=== PATIENT | female | born 2000 | race Caucasian/White ===

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

== ENCOUNTER 2021-04-10 01:17 | Emergency (ER) | payer OTHER ==
[2021-04-10 01:23] VITALS: TEMP 98.9
[2021-04-10] MEDS ORDERED: ONDANSETRON 4 MG/2 ML VIAL IVP STA (01:54)
[2021-04-10] MEDS ORDERED: KETOROLAC 15 MG/ML 1 ML VIAL IVP STA (01:54)
[2021-04-10 02:16] LABS: Basophils # (A) 0.1 k/uL (0-0.2); Basophils % (A) 1 %; Eosinophils # (A) 0.2 k/uL (0-0.7); Eosinophils % (A) 2 %; HCT 40.6 % (34.0-46.0); HGB 13.7 gm/dL (11.4-16.0); Lymphocytes # (A) 2.6 k/uL (1.0-4.8); Lymphocytes % (A) 27 %; MCH 27.7 pg (25.0-35.0); MCHC 33.8 g/dL (31.0-37.0); Mean Platelet Volume 7.5; Monocytes # (A) 0.3 k/uL (0-1.0); Monocytes % (A) 4 %; Neutrophils # (A) 6.3 k/uL (1.3-7.7); Neutrophils % (A) 66 %; Platelet Count 326 k/uL (150-450); RBC 4.95 m/uL (3.80-5.40); RDW 13.9 % (11.5-15.5); WBC 9.5 k/uL (4.0-11.0)
[2021-04-10 02:23] LABS: Appearance,Urine Cloudy (Clear); Bilirubin,Urine Negative (Negative); Blood,Urine Large (Negative); Calcium Oxalate Crystals,Urine Many /hpf; Color,Urine Yellow; Glucose,Urine (UA) Negative (Negative); Ketones,Urine Negative (Negative); Leukocyte Esterase,Urine Negative (Negative); Mucus,Urine Occasional /hpf; Nitrite,Urine Negative (Negative); PH, Urine 6.5 (5.0-8.0); Protein,Urine Trace (Negative); RBC,Urine 45 /hpf (0-5); Specific Gravity,Urine 1.026 (1.001-1.035); Squamous Epithelial Cell,Urine 1 /hpf (0-4); WBC,Urine 3 /hpf (0-5)
[2021-04-10 02:25] LABS: ALT 15 U/L (4-34); AST 22 U/L (14-36); African American GFR (CKD) >90 (>60 ml/min/1.73 sqM); Albumin 4.5 g/dL (3.5-5.0); Alkaline Phosphatase 101 U/L (38-126); Anion Gap 10 mmol/L; Blood Urea Nitrogen 8 mg/dL (7-17); Calcium 8.9 mg/dL (8.4-10.2); Carbon Dioxide 22 mmol/L (22-30); Chloride 110 mmol/L (98-107); Glucose 120 mg/dL (74-99); Lipase 72 U/L (23-300); Non-African American GFR(CKD) >90 (>60 ml/min/1.73 sqM); Potassium 3.5 mmol/L (3.5-5.1); Sodium 142 mmol/L (137-145); Total Bilirubin 0.1 mg/dL (0.2-1.3); Total Protein 7.7 g/dL (6.3-8.2)
[2021-04-10 02:26] LABS: INR 0.9 (<1.2); Partial Thromboplastin Time 23.7 sec (22.0-30.0); Prothrombin Time 9.8 sec (9.0-12.0)
--- NOTE | 2021-04-10 02:53 | ED ---
Abdominal Pain HPI - General Chief Complaint: Abdominal Pain Stated Complaint: Vaginal Bleeding Time Seen by Provider: 04/10/21 01:24 Source: patient Mode of arrival: ambulatory Limitations: no limitations - History of Present Illness Initial Comments: 20 year-old female patient presents to the emergency department for evaluation of left pelvic pain. Patient states she also had an episode of vomiting states there was a small amount of blood in the vomit. States that she also started her period today and the bleeding is heavier than usual. States she does have history of ovarian cyst. States she has also been having frequent vomiting for the last few months. Denies any fever or chills. Denies abnormal vaginal discharge. States she does take oral control for almost a year. Patient denies any recent rash, cough, shortness of breath, chest pain, diarrhea, constipation, back pain, numbness, tingling, dizziness, weakness, headache, visual changes, or any other complaints. - Related Data Home Medications Medication Instructions Recorded Confirmed Ibuprofen [Motrin] 800 mg PO Q6H PRN 07/04/17 07/04/17 Previous Rx's Medication Instructions Recorded Dicyclomine [Bentyl] 10 mg PO TID #20 capsule 07/04/17 Ondansetron Odt [Zofran ODT] 4 mg PO Q8HR PRN #20 tab 07/04/17 Cyclobenzaprine [Flexeril] 10 mg PO TID #12 tab 10/19/19 Ibuprofen [Motrin] 600 mg PO Q8HR PRN #20 tab 10/19/19 Ondansetron [Zofran ODT] 4 mg PO Q8HR PRN #10 tab 04/10/21 Allergies Allergy/AdvReac Type Severity Reaction Status Date / Time No Known Allergies Allergy Verified 04/10/21 01:23 Review of Systems ROS Statement: Those systems with pertinent positive or pertinent negative responses have been documented in the HPI. ROS Other: All systems not noted in ROS Statement are negative. Past Medical History Past Medical History: No Reported History Additional Past Medical History / Comment(s): ovarian cyst History of Any Multi-Drug Resistant Organisms: None Reported Past Surgical History: No Surgical Hx Reported Past Psychological History: No Psychological Hx Reported Smoking Status: Vaper Past Alcohol Use History: None Reported Past Drug Use History: None Reported General Exam Limitations: no limitations General appearance: alert, in no apparent distress, other (Physical well- developed, well-nourished adult female patient in no acute distress. Vital signs upon presentation temperature 98.9F, pulse 81, respirations 20, blood pressure 130/71, pulse ox 99% on room air.) Respiratory exam: Present: normal lung sounds bilaterally. Absent: respiratory distress, wheezes, rales, rhonchi, stridor Cardiovascular Exam: Present: regular rate, normal rhythm, normal heart sounds. Absent: systolic murmur, diastolic murmur, rubs, gallop, clicks GI/Abdominal exam: Present: soft, tenderness (Left lower quadrant tenderness), normal bowel sounds. Absent: distended, guarding, rebound, rigid Back exam: Present: normal inspection. Absent: CVA tenderness (R), CVA tenderness (L) Neurological exam: Present: alert, oriented X3, CN II-XII intact Psychiatric exam: Present: normal affect, normal mood Skin exam: Present: warm, dry, intact, normal color. Absent: rash Course Vital Signs 04/10/21 01:19 Temperature 98.9 F Pulse Rate 81 Respiratory 20 Rate Blood Pressure 130/71 O2 Sat by Pulse 99 Oximetry Medical Decision Making - Medical Decision Making 20 year-old female patient presented to the emergency department today for evaluation of left pelvic pain and heavy vaginal bleeding. Physical examination did reveal left lower quadrant tenderness. She had normal vital signs. Labs reviewed and are unremarkable. Urinalysis showed red blood cells that she is on her period. Transvaginal ultrasound showed no abnormalities. I did discuss findings and results with her. She'll be discharged follow up with the primary care physician for recheck in 1-2 days. Return parameters were discussed in det ail. She verbalizes understanding and agrees with this plan. My attending is Dr. Aguilar. - Lab Data Result diagrams: 04/10/21 02:02 04/10/21 02:02 Lab Results 04/10/21 04/10/21 04/10/21 Range/Units 02:02 02:02 02:02 WBC 9.5 (4.0-11.0) k/uL RBC 4.95 (3.80-5.40) m/uL Hgb 13.7 (11.4-16.0) gm/dL Hct 40.6 (34.0-46.0) % MCV 82.0 (80.0-100.0) fL MCH 27.7 (25.0-35.0) pg MCHC 33.8 (31.0-37.0) g/dL RDW 13.9 (11.5-15.5) % Plt Count 326 (150-450) k/uL MPV 7.5 Neutrophils % 66 % Lymphocytes % 27 % Monocytes % 4 % Eosinophils % 2 % Basophils % 1 % Neutrophils # 6.3 (1.3-7.7) k/uL Lymphocytes # 2.6 (1.0-4.8) k/uL Monocytes # 0.3 (0-1.0) k/uL Eosinophils # 0.2 (0-0.7) k/uL Basophils # 0.1 (0-0.2) k/uL PT 9.8 (9.0-12.0) sec INR 0.9 (<1.2) APTT 23.7 (22.0-30.0) sec Sodium (137-145) mmol/L Potassium (3.5-5.1) mmol/L Chloride (98-107) mmol/L Carbon Dioxide (22-30) mmol/L Anion Gap mmol/L BUN (7-17) mg/dL Creatinine (0.52-1.04) mg/dL Est GFR (CKD-EPI)AfAm (>60 ml/min/1.73 sqM) Est GFR (CKD-EPI)NonAf (>60 ml/min/1.73 sqM) Glucose (74-99) mg/dL Calcium (8.4-10.2) mg/dL Total Bilirubin (0.2-1.3) mg/dL AST (14-36) U/L ALT (4-34) U/L Alkaline Phosphatase (38-126) U/L Total Protein (6.3-8.2) g/dL Albumin (3.5-5.0) g/dL Lipase (23-300) U/L Urine Color Yellow Urine Appearance Cloudy H (Clear) Urine pH 6.5 (5.0-8.0) Ur Specific [place] 1.026 (1.001-1.035) Urine Protein Trace H (Negative) Urine Glucose (UA) Negative (Negative) Urine Ketones Negative (Negative) Urine Blood Large H (Negative) Urine Nitrite Negative (Negative) Urine Bilirubin Negative (Negative) Urine Urobilinogen 2.0 (<2.0) mg/dL Ur Leukocyte Esterase Negative (Negative) Urine RBC 45 H (0-5) /hpf Urine WBC 3 (0-5) /hpf Ur Squamous Epith Cells 1 (0-4) /hpf Calcium Oxalate Crystal Many H (None) /hpf Urine Mucus Occasional H (None) /hpf Urine HCG, Qual (Not Detectd) 04/10/21 04/10/21 Range/Units 02:02 02:02 WBC (4.0-11.0) k/uL RBC (3.80-5.40) m/uL Hgb (11.4-16.0) gm/dL Hct (34.0-46.0) % MCV (80.0-100.0) fL MCH (25.0-35.0) pg MCHC (31.0-37.0) g/dL RDW (11.5-15.5) % Plt Count (150-450) k/uL MPV Neutrophils % % Lymphocytes % % Monocytes % % Eosinophils % % Basophils % % Neutrophils # (1.3-7.7) k/uL Lymphocytes # (1.0-4.8) k/uL Monocytes # (0-1.0) k/uL Eosinophils # (0-0.7) k/uL Basophils # (0-0.2) k/uL PT (9.0-12.0) sec INR (<1.2) APTT (22.0-30.0) sec Sodium 142 (137-145) mmol/L Potassium 3.5 (3.5-5.1) mmol/L Chloride 110 H (98-107) mmol/L Carbon Dioxide 22 (22-30) mmol/L Anion Gap 10 mmol/L BUN 8 (7-17) mg/dL Creatinine 0.49 L (0.52-1.04) mg/dL Est GFR (CKD-EPI)AfAm >90 (>60 ml/min/1.73 sqM) Est GFR (CKD-EPI)NonAf >90 (>60 ml/min/1.73 sqM) Glucose 120 H (74-99) mg/dL Calcium 8.9 (8.4-10.2) mg/dL Total Bilirubin 0.1 L (0.2-1.3) mg/dL AST 22 (14-36) U/L ALT 15 (4-34) U/L Alkaline Phosphatase 101 (38-126) U/L Total Protein 7.7 (6.3-8.2) g/dL Albumin 4.5 (3.5-5.0) g/dL Lipase 72 (23-300) U/L Urine Color Urine Appearance (Clear) Urine pH (5.0-8.0) Ur Specific [place] (1.001-1.035) Urine Protein (Negative) Urine Glucose (UA) (Negative) Urine Ketones (Negative) Urine Blood (Negative) Urine Nitrite (Negative) Urine Bilirubin (Negative) Urine Urobilinogen (<2.0) mg/dL Ur Leukocyte Esterase (Negative) Urine RBC (0-5) /hpf Urine WBC (0-5) /hpf Ur Squamous Epith Cells (0-4) /hpf Calcium Oxalate Crystal (None) /hpf Urine Mucus (None) /hpf Urine HCG, Qual Not Detected (Not Detectd) - Radiology Data Radiology results: report reviewed, image reviewed Ultrasound of the pelvis was obtained. Report is reviewed in its entirety. Impression by Dr. Zhong shows no evidence of ovarian torsion. Normal uterus and endometrium. Left ovary appears normal. Disposition Clinical Impression: Pelvic pain Disposition: HOME SELF-CARE Condition: Good Instructions (If sedation given, give patient instructions): Pelvic Pain in Women (ED) Additional Instructions: Follow-up with gynecology for further evaluation of your pelvic pain. Follow up with gastroenterology for further evaluation of your persistent vomiting. Return to the emergency department for any new, worsening, or concerning symptoms. Prescriptions: Ondansetron [Zofran ODT] 4 mg PO Q8HR PRN #10 tab PRN Reason: Nausea Is patient prescribed a controlled substance at d/c from ED?: No Referrals: Cristal Huerta MD [Primary Care Provider] - 1-2 days Michelle Wyatt MD [STAFF PHYSICIAN] - 1-2 days Time of Disposition: 03:36
--- NOTE | 2021-04-10 03:32 | US ---
EXAMINATION TYPE: US transvaginal DATE OF EXAM: 04/10/2021 COMPARISON: NONE CLINICAL HISTORY: left pelvic pain; hx ovarian cyst. TECHNIQUE: . Transavaginal sonographic images of the pelvis were acquired. Date of LMP: 04/09/2021 EXAM MEASUREMENTS: Uterus: 6.2 x 3.4 x 4.0 cm Endometrial Stripe: 0.3 cm Right Ovary: not visualized Left Ovary: 2.2 x 1.3 x 1.4 cm 1. Uterus: Retroverted wnl 2. Endometrium: wnl 3. Right Ovary: Not visualized 4. Left Ovary: wnl Spectral, color and waveform doppler imaging shows good arterial and venous flow within the ovaries ; there is no evidence for ovarian torsion. 5. Bilateral Adnexa: wnl 6. Posterior cul-de-sac: wnl IMPRESSION: No evidence of ovary torsion. Normal uterus and endometrium. Left ovary appears normal.
[2021-04-10 03:52] VITALS: BP 141/93; PULSE 82; RESP 18
== END 2021-04-10 04:05 | disposition home or self-care (01) ==
LOC: EC 01:17
DX: R10.32 Left lower quadrant pain (principal)
CPT/HCPCS: 36415; 80053; 83690; 85025; 85610; 85730; 81001; 81025; 93976; 76830; 99284; 96374; 96375; J2405; J1885

== ENCOUNTER 2021-08-23 23:36 | Emergency (ER) | payer OTHER ==
[2021-08-24] MEDS ORDERED: ONDANSETRON 4 MG ODT STARTER PACK 2 TAB BTL PO STA (01:40)
[2021-08-24 02:08] VITALS: BP 139/96; PULSE 74; RESP 16; TEMP 97.9
[2021-08-24 02:12] LABS: Amorphous Sediment,Urine Rare /hpf; Appearance,Urine Clear (Clear); Bilirubin,Urine Negative (Negative); Blood,Urine Small (Negative); Color,Urine Yellow; Glucose,Urine (UA) Negative (Negative); Ketones,Urine Negative (Negative); Leukocyte Esterase,Urine Negative (Negative); Mucus,Urine Rare /hpf; Nitrite,Urine Negative (Negative); PH, Urine 6.5 (5.0-8.0); Protein,Urine 1+ (Negative); RBC,Urine 2 /hpf (0-5); Specific Gravity,Urine 1.043 (1.001-1.035); Squamous Epithelial Cell,Urine 3 /hpf (0-4); WBC,Urine 2 /hpf (0-5)
[2021-08-24] MEDS ORDERED: SODIUM CHLORIDE 0.9% 1,000 ML IV ONE (02:16)
[2021-08-24] MEDS ORDERED: KETOROLAC 30 MG/ML 1 ML VIAL IVP STA (02:16)
[2021-08-24 02:42] LABS: Basophils # (A) 0.1 k/uL (0-0.2); Basophils % (A) 1 %; Eosinophils # (A) 0.2 k/uL (0-0.7); Eosinophils % (A) 3 %; HCT 40.7 % (34.0-46.0); Lymphocytes # (A) 2.5 k/uL (1.0-4.8); Lymphocytes % (A) 32 %; MCH 28.5 pg (25.0-35.0); MCHC 34.3 g/dL (31.0-37.0); Monocytes # (A) 0.4 k/uL (0-1.0); Monocytes % (A) 5 %; Neutrophils # (A) 4.3 k/uL (1.3-7.7); Neutrophils % (A) 56 %; Platelet Count 346 k/uL (150-450); RDW 14.1 % (11.5-15.5); WBC 7.6 k/uL (4.0-11.0)
[2021-08-24 02:52] LABS: ALT 29 U/L (4-34); AST 23 U/L (14-36); African American GFR (CKD) >90 (>60 ml/min/1.73 sqM); Albumin 4.1 g/dL (3.5-5.0); Alkaline Phosphatase 81 U/L (38-126); Anion Gap 8 mmol/L; Blood Urea Nitrogen 9 mg/dL (7-17); Calcium 8.7 mg/dL (8.4-10.2); Carbon Dioxide 23 mmol/L (22-30); Chloride 106 mmol/L (98-107); Glucose 103 mg/dL (74-99); Lipase 79 U/L (23-300); Non-African American GFR(CKD) >90 (>60 ml/min/1.73 sqM); Potassium 4.4 mmol/L (3.5-5.1); Sodium 137 mmol/L (137-145); Total Bilirubin 0.2 mg/dL (0.2-1.3); Total Protein 7.6 g/dL (6.3-8.2)
--- NOTE | 2021-08-24 03:09 | US ---
EXAMINATION TYPE: US transvaginal DATE OF EXAM: 08/24/2021 COMPARISON: NONE CLINICAL HISTORY: left pelvic pain. LLQ pain x 1 week, G0, some vaginal bleeding noted during exam TECHNIQUE: TV. Transvaginal sonographic images Date of LMP: June, on control EXAM MEASUREMENTS: Uterus: 6.4 x 4.5 x 3.8 cm Endometrial Stripe: 0.4 cm Right Ovary: 1.9 x 1.5 x 1.3 cm Left Ovary: 2.0 x 1.0 x 1.1 cm 1. Uterus: Retroverted wnl 2. Endometrium: wnl 3. Right Ovary: wnl 4. Left Ovary: wnl Spectral, color and waveform doppler imaging shows good arterial and venous flow within the ovaries ; there is no evidence for ovarian torsion. 5. Bilateral Adnexa: wnl 6. Posterior cul-de-sac: wnl IMPRESSION: Negative transvaginal pelvic sonogram. No adnexal mass or free fluid. Retroverted uterus noted.
--- NOTE | 2021-08-24 03:17 | ED ---
Abdominal Pain HPI - General Chief Complaint: Abdominal Pain Stated Complaint: abdominal pain, nausea Time Seen by Provider: 08/24/21 01:10 Source: patient Mode of arrival: ambulatory Limitations: no limitations - History of Present Illness Initial Comments: 21-year-old female patient presents to the emergency department for evaluation of lower abdominal pain worse on the left side. States it has been present for the last week. States her last period was in June, this is not unusual for her. States she did go have a test performed yesterday, they state her urine looked like it could possibly be infected. She does have history of ovarian cysts. She denies any low back pain. Denies any abnormal vaginal bleeding or discharge. Denies concern for sexually transmitted infections. States she has had some dysuria and urinary frequency. Denies fever or chills. States she's been nauseated and has been vomiting. Denies any constipation or diarrhea. - Related Data Home Medications Medication Instructions Recorded Confirmed Ibuprofen [Motrin] 800 mg PO Q6H PRN 07/04/17 07/04/17 Previous Rx's Medication Instructions Recorded Dicyclomine [Bentyl] 10 mg PO TID #20 capsule 07/04/17 Ondansetron Odt [Zofran ODT] 4 mg PO Q8HR PRN #20 tab 07/04/17 Cyclobenzaprine [Flexeril] 10 mg PO TID #12 tab 10/19/19 Ibuprofen [Motrin] 600 mg PO Q8HR PRN #20 tab 10/19/19 Ondansetron [Zofran ODT] 4 mg PO Q8HR PRN #10 tab 04/10/21 Ondansetron [Zofran ODT] 4 mg PO Q8HR PRN #10 tab 08/24/21 Allergies Allergy/AdvReac Type Severity Reaction Status Date / Time No Known Allergies Allergy Verified 08/24/21 00:01 Review of Systems ROS Statement: Those systems with pertinent positive or pertinent negative responses have been documented in the HPI. ROS Other: All systems not noted in ROS Statement are negative. Past Medical History Past Medical History: No Reported History Additional Past Medical History / Comment(s): ovarian cyst History of Any Multi-Drug Resistant Organisms: None Reported Past Surgical History: No Surgical Hx Reported Past Psychological History: No Psychological Hx Reported Smoking Status: Vaper Past Alcohol Use History: None Reported Past Drug Use History: None Reported General Exam Limitations: no limitations General appearance: alert, in no apparent distress, other (So well-developed, well-nourished adult female patient in no acute distress.) ENT exam: Present: normal exam, normal oropharynx, mucous membranes moist Respiratory exam: Present: normal lung sounds bilaterally. Absent: respiratory distress, wheezes, rales, rhonchi, stridor Cardiovascular Exam: Present: regular rate, normal rhythm, normal heart sounds. Absent: systolic murmur, diastolic murmur, rubs, gallop, clicks GI/Abdominal exam: Present: soft, tenderness (Left lower quadrant, suprapubic tenderness), normal bowel sounds. Absent: distended, guarding, rebound, rigid Neurological exam: Present: alert, oriented X3, CN II-XII intact Psychiatric exam: Present: normal affect, normal mood Skin exam: Present: warm, dry, intact, normal color. Absent: rash Course Vital Signs 08/23/21 08/24/21 23:58 02:03 Temperature 98.5 F 97.9 F Pulse Rate 82 74 Respiratory 18 16 Rate Blood Pressure 138/101 139/96 O2 Sat by Pulse 100 97 Oximetry Medical Decision Making - Medical Decision Making 21-year-old female patient presents to the emergency department today for evaluation of lower abdominal pain, nausea, vomiting. Physical examination reveals lower abdominal tenderness. Urinalysis showed no sign of infection. Labs reviewed and are unremarkable. Ultrasound was obtained and was also unremarkable. I did discuss findings and results with her. She'll be discharged home with a prescription for Zofran. She is instructed to follow up with the primary care physician for recheck in 1-2 days. She verbalizes understanding and agrees with this plan. My attending is Dr. Aguilar. - Lab Data Result diagrams: 08/24/21 02:30 08/24/21 02:30 Lab Results 08/24/21 08/24/21 08/24/21 Range/Units 01:59 01:59 02:30 WBC 7.6 (4.0-11.0) k/uL RBC 4.90 (3.80-5.40) m/uL Hgb 14.0 (11.4-16.0) gm/dL Hct 40.7 (34.0-46.0) % MCV 83.0 (80.0-100.0) fL MCH 28.5 (25.0-35.0) pg MCHC 34.3 (31.0-37.0) g/dL RDW 14.1 (11.5-15.5) % Plt Count 346 (150-450) k/uL MPV 8.0 Neutrophils % 56 % Lymphocytes % 32 % Monocytes % 5 % Eosinophils % 3 % Basophils % 1 % Neutrophils # 4.3 (1.3-7.7) k/uL Lymphocytes # 2.5 (1.0-4.8) k/uL Monocytes # 0.4 (0-1.0) k/uL Eosinophils # 0.2 (0-0.7) k/uL Basophils # 0.1 (0-0.2) k/uL Sodium (137-145) mmol/L Potassium (3.5-5.1) mmol/L Chloride (98-107) mmol/L Carbon Dioxide (22-30) mmol/L Anion Gap mmol/L BUN (7-17) mg/dL Creatinine (0.52-1.04) mg/dL Est GFR (CKD-EPI)AfAm (>60 ml/min/1.73 sqM) Est GFR (CKD-EPI)NonAf (>60 ml/min/1.73 sqM) Glucose (74-99) mg/dL Calcium (8.4-10.2) mg/dL Total Bilirubin (0.2-1.3) mg/dL AST (14-36) U/L ALT (4-34) U/L Alkaline Phosphatase (38-126) U/L Total Protein (6.3-8.2) g/dL Albumin (3.5-5.0) g/dL Lipase (23-300) U/L Urine Color Yellow Urine Appearance Clear (Clear) Urine pH 6.5 (5.0-8.0) Ur Specific [place] 1.043 H (1.001-1.035) Urine Protein 1+ H (Negative) Urine Glucose (UA) Negative (Negative) Urine Ketones Negative (Negative) Urine Blood Small H (Negative) Urine Nitrite Negative (Negative) Urine Bilirubin Negative (Negative) Urine Urobilinogen 3.0 (<2.0) mg/dL Ur Leukocyte Esterase Negative (Negative) Urine RBC 2 (0-5) /hpf Urine WBC 2 (0-5) /hpf Ur Squamous Epith Cells 3 (0-4) /hpf Amorphous Sediment Rare H (None) /hpf Urine Mucus Rare H (None) /hpf Urine HCG, Qual Not Detected (Not Detectd) 08/24/21 Range/Units 02:30 WBC (4.0-11.0) k/uL RBC (3.80-5.40) m/uL Hgb (11.4-16.0) gm/dL Hct (34.0-46.0) % MCV (80.0-100.0) fL MCH (25.0-35.0) pg MCHC (31.0-37.0) g/dL RDW (11.5-15.5) % Plt Count (150-450) k/uL MPV Neutrophils % % Lymphocytes % % Monocytes % % Eosinophils % % Basophils % % Neutrophils # (1.3-7.7) k/uL Lymphocytes # (1.0-4.8) k/uL Monocytes # (0-1.0) k/uL Eosinophils # (0-0.7) k/uL Basophils # (0-0.2) k/uL Sodium 137 (137-145) mmol/L Potassium 4.4 (3.5-5.1) mmol/L Chloride 106 (98-107) mmol/L Carbon Dioxide 23 (22-30) mmol/L Anion Gap 8 mmol/L BUN 9 (7-17) mg/dL Creatinine 0.51 L (0.52-1.04) mg/dL Est GFR (CKD-EPI)AfAm >90 (>60 ml/min/1.73 sqM) Est GFR (CKD-EPI)NonAf >90 (>60 ml/min/1.73 sqM) Glucose 103 H (74-99) mg/dL Calcium 8.7 (8.4-10.2) mg/dL Total Bilirubin 0.2 (0.2-1.3) mg/dL AST 23 (14-36) U/L ALT 29 (4-34) U/L Alkaline Phosphatase 81 (38-126) U/L Total Protein 7.6 (6.3-8.2) g/dL Albumin 4.1 (3.5-5.0) g/dL Lipase 79 (23-300) U/L Urine Color Urine Appearance (Clear) Urine pH (5.0-8.0) Ur Specific [place] (1.001-1.035) Urine Protein (Negative) Urine Glucose (UA) (Negative) Urine Ketones (Negative) Urine Blood (Negative) Urine Nitrite (Negative) Urine Bilirubin (Negative) Urine Urobilinogen (<2.0) mg/dL Ur Leukocyte Esterase (Negative) Urine RBC (0-5) /hpf Urine WBC (0-5) /hpf Ur Squamous Epith Cells (0-4) /hpf Amorphous Sediment (None) /hpf Urine Mucus (None) /hpf Urine HCG, Qual (Not Detectd) - Radiology Data Radiology results: report reviewed, image reviewed Transvaginal ultrasound was obtained. Report reviewed in its entirety. Impression by Dr. Zhong shows negative transvaginal pelvic sonogram. No adnexal mass or free fluid. Retroverted uterus noted. Disposition Clinical Impression: Abdominal pain Disposition: HOME SELF-CARE Condition: Good Instructions (If sedation given, give patient instructions): Abdominal Pain (ED) Additional Instructions: Start with clear liquid diet and advance as tolerated. Take nausea medication as needed. Follow-up with your primary care physician for recheck in 1-2 days. Return to the emergency department for any new, worsening, or concerning symptoms. Prescriptions: Ondansetron [Zofran ODT] 4 mg PO Q8HR PRN #10 tab PRN Reason: Nausea Is patient prescribed a controlled substance at d/c from ED?: No Referrals: Cristal Huerta MD [Primary Care Provider] - 1-2 days Time of Disposition: 03:17
== END 2021-08-24 03:29 | disposition home or self-care (01) ==
LOC: EC 23:36
DX: R10.32 Left lower quadrant pain (principal); F17.290 Nicotine dependence, other tobacco product, uncomplicated
CPT/HCPCS: 99284; 96374; 96361; 36415; 80053; 83690; 85025; 81001; 81025; 93975; 76830; J1885; S0119

== ENCOUNTER 2021-10-20 23:21 | Emergency (ER) | payer OTHER ==
[2021-10-20 23:41] VITALS: TEMP 98
[2021-10-21 00:14] LABS: Basophils # (A) 0.1 k/uL (0-0.2); Basophils % (A) 1 %; Eosinophils # (A) 0.3 k/uL (0-0.7); Eosinophils % (A) 3 %; HCT 42.5 % (34.0-46.0); HGB 13.5 gm/dL (11.4-16.0); Lymphocytes % (A) 33 %; MCH 27.1 pg (25.0-35.0); MCHC 31.9 g/dL (31.0-37.0); MCV 85.1 fL (80.0-100.0); Mean Platelet Volume 7.8; Monocytes # (A) 0.4 k/uL (0-1.0); Monocytes % (A) 5 %; Neutrophils # (A) 5.1 k/uL (1.3-7.7); Neutrophils % (A) 56 %; Platelet Count 325 k/uL (150-450); RBC 4.99 m/uL (3.80-5.40); RDW 14.2 % (11.5-15.5); WBC 9.1 k/uL (4.0-11.0)
[2021-10-21 00:23] LABS: Appearance,Urine Clear (Clear); Bilirubin,Urine Negative (Negative); Blood,Urine Trace (Negative); Color,Urine Yellow; Glucose,Urine (UA) Negative (Negative); Hyaline Casts,Urine 1 /lpf (0-2); Ketones,Urine Negative (Negative); Leukocyte Esterase,Urine Negative (Negative); Mucus,Urine Few /hpf; Nitrite,Urine Negative (Negative); Protein,Urine Trace (Negative); RBC,Urine 1 /hpf (0-5); Specific Gravity,Urine 1.028 (1.001-1.035); Squamous Epithelial Cell,Urine 3 /hpf (0-4); WBC,Urine 2 /hpf (0-5)
[2021-10-21 00:41] LABS: ALT 18 U/L (4-34); AST 28 U/L (14-36); African American GFR (CKD) >90 (>60 ml/min/1.73 sqM); Albumin 4.1 g/dL (3.5-5.0); Alkaline Phosphatase 80 U/L (38-126); Amylase 46 U/L (30-110); Anion Gap 11 mmol/L; Blood Urea Nitrogen 9 mg/dL (7-17); C Reactive Protein 1.7 mg/dL (<1.0); Calcium 8.7 mg/dL (8.4-10.2); Carbon Dioxide 21 mmol/L (22-30); Chloride 108 mmol/L (98-107); Glucose 109 mg/dL (74-99); Lipase 78 U/L (23-300); Non-African American GFR(CKD) >90 (>60 ml/min/1.73 sqM); Potassium 3.9 mmol/L (3.5-5.1); Sodium 140 mmol/L (137-145); Total Bilirubin 0.3 mg/dL (0.2-1.3); Total Protein 7.5 g/dL (6.3-8.2)
--- NOTE | 2021-10-21 01:25 | CT ---
EXAMINATION TYPE: CT abdomen pelvis wo con DATE OF EXAM: 10/21/2021 COMPARISON: 12/02/2020 HISTORY: RLQ pain. prior on PACS CT DLP: 1171 mGycm Automated exposure control for dose reduction was used. Images obtained from the diaphragm to the floor the pelvis with no contrast. Lung bases are clear. There is no pleural effusion. Heart size is normal. Liver spleen and stomach pancreas and gallbladder appear normal. Bile ducts are nondilated. There is no adrenal mass. Kidneys show normal size and contour. There is no hydronephrosis. Ureters are not di lated. There is no retroperitoneal adenopathy. Bladder distends smoothly. There is no inguinal hernia . Uterus is anteverted. There is no free fluid in the pelvis. There is no evidence of a pelvic mass. The appendix is posterior and medial and appears normal. There is no mesenteric edema. There is no ascites or free air. There is no bowel obstruction. The lum bar vertebrae have normal alignment. There is no compression fracture. The bony pelvis is intact. Hip joints are intact. IMPRESSION: Negative CT scan abdomen and pelvis. Normal appendix. No adverse change.
--- NOTE | 2021-10-21 01:46 | ED ---
Abdominal Pain HPI - General Chief Complaint: Abdominal Pain Stated Complaint: Left side pain Time Seen by Provider: 10/20/21 23:57 Source: patient Mode of arrival: ambulatory Limitations: no limitations - History of Present Illness MD Complaint: abdominal pain -: days(s) - Related Data Home Medications Medication Instructions Recorded Confirmed Ibuprofen [Motrin] 800 mg PO Q6H PRN 07/04/17 07/04/17 Previous Rx's Medication Instructions Recorded Dicyclomine [Bentyl] 10 mg PO TID #20 capsule 07/04/17 Ondansetron Odt [Zofran ODT] 4 mg PO Q8HR PRN #20 tab 07/04/17 Cyclobenzaprine [Flexeril] 10 mg PO TID #12 tab 10/19/19 Ibuprofen [Motrin] 600 mg PO Q8HR PRN #20 tab 10/19/19 Ondansetron [Zofran ODT] 4 mg PO Q8HR PRN #10 tab 04/10/21 Ondansetron [Zofran ODT] 4 mg PO Q8HR PRN #10 tab 08/24/21 Dicyclomine [Bentyl] 20 mg PO QID #15 tablet 10/21/21 Allergies Allergy/AdvReac Type Severity Reaction Status Date / Time No Known Allergies Allergy Verified 10/20/21 23:40 Review of Systems ROS Statement: Those systems with pertinent positive or pertinent negative responses have been documented in the HPI. ROS Other: All systems not noted in ROS Statement are negative. Past Medical History Past Medical History: No Reported History Additional Past Medical History / Comment(s): ovarian cyst History of Any Multi-Drug Resistant Organisms: None Reported Past Surgical History: No Surgical Hx Reported Past Psychological History: No Psychological Hx Reported Smoking Status: Vaper Past Alcohol Use History: None Reported Past Drug Use History: None Reported General Exam Limitations: no limitations Course Vital Signs 10/20/21 10/21/21 10/21/21 23:38 01:55 02:05 Temperature 98 F 98 F Pulse Rate 82 76 77 Respiratory 20 16 20 Rate Blood Pressure 143/81 144/68 124/82 O2 Sat by Pulse 98 97 97 Oximetry Medical Decision Making - Lab Data Result diagrams: 10/21/21 00:00 10/21/21 00:00 Lab Results 01/15/22 01/15/22 01/15/22 Range/Units 00:00 00:00 00:00 WBC 9.1 (4.0-11.0) k/uL RBC 4.99 (3.80-5.40) m/uL Hgb 13.5 (11.4-16.0) gm/dL Hct 42.5 (34.0-46.0) % MCV 85.1 (80.0-100.0) fL MCH 27.1 (25.0-35.0) pg MCHC 31.9 (31.0-37.0) g/dL RDW 14.2 (11.5-15.5) % Plt Count 325 (150-450) k/uL MPV 7.8 Neutrophils % 56 % Lymphocytes % 33 % Monocytes % 5 % Eosinophils % 3 % Basophils % 1 % Neutrophils # 5.1 (1.3-7.7) k/uL Lymphocytes # 3.0 (1.0-4.8) k/uL Monocytes # 0.4 (0-1.0) k/uL Eosinophils # 0.3 (0-0.7) k/uL Basophils # 0.1 (0-0.2) k/uL Sodium 140 (137-145) mmol/L Potassium 3.9 (3.5-5.1) mmol/L Chloride 108 H (98-107) mmol/L Carbon Dioxide 21 L (22-30) mmol/L Anion Gap 11 mmol/L BUN 9 (7-17) mg/dL Creatinine 0.64 (0.52-1.04) mg/dL Est GFR (CKD-EPI)AfAm >90 (>60 ml/min/1.73 sqM) Est GFR (CKD-EPI)NonAf >90 (>60 ml/min/1.73 sqM) Glucose 109 H (74-99) mg/dL Calcium 8.7 (8.4-10.2) mg/dL Total Bilirubin 0.3 (0.2-1.3) mg/dL AST 28 (14-36) U/L ALT 18 (4-34) U/L Alkaline Phosphatase 80 (38-126) U/L C-Reactive Protein 1.7 H (<1.0) mg/dL Total Protein 7.5 (6.3-8.2) g/dL Albumin 4.1 (3.5-5.0) g/dL Amylase 46 (30-110) U/L Lipase 78 (23-300) U/L Urine Color Urine Appearance (Clear) Urine pH (5.0-8.0) Ur Specific [place] (1.001-1.035) Urine Protein (Negative) Urine Glucose (UA) (Negative) Urine Ketones (Negative) Urine Blood (Negative) Urine Nitrite (Negative) Urine Bilirubin (Negative) Urine Urobilinogen (<2.0) mg/dL Ur Leukocyte Esterase (Negative) Urine RBC (0-5) /hpf Urine WBC (0-5) /hpf Ur Squamous Epith Cells (0-4) /hpf Hyaline Casts (0-2) /lpf Urine Mucus (None) /hpf Urine HCG, Qual Not Detected (Not Detectd) 10/21/21 Range/Units 00:04 WBC (4.0-11.0) k/uL RBC (3.80-5.40) m/uL Hgb (11.4-16.0) gm/dL Hct (34.0-46.0) % MCV (80.0-100.0) fL MCH (25.0-35.0) pg MCHC (31.0-37.0) g/dL RDW (11.5-15.5) % Plt Count (150-450) k/uL MPV Neutrophils % % Lymphocytes % % Monocytes % % Eosinophils % % Basophils % % Neutrophils # (1.3-7.7) k/uL Lymphocytes # (1.0-4.8) k/uL Monocytes # (0-1.0) k/uL Eosinophils # (0-0.7) k/uL Basophils # (0-0.2) k/uL Sodium (137-145) mmol/L Potassium (3.5-5.1) mmol/L Chloride (98-107) mmol/L Carbon Dioxide (22-30) mmol/L Anion Gap mmol/L BUN (7-17) mg/dL Creatinine (0.52-1.04) mg/dL Est GFR (CKD-EPI)AfAm (>60 ml/min/1.73 sqM) Est GFR (CKD-EPI)NonAf (>60 ml/min/1.73 sqM) Glucose (74-99) mg/dL Calcium (8.4-10.2) mg/dL Total Bilirubin (0.2-1.3) mg/dL AST (14-36) U/L ALT (4-34) U/L Alkaline Phosphatase (38-126) U/L C-Reactive Protein (<1.0) mg/dL Total Protein (6.3-8.2) g/dL Albumin (3.5-5.0) g/dL Amylase (30-110) U/L Lipase (23-300) U/L Urine Color Yellow Urine Appearance Clear (Clear) Urine pH 6.0 (5.0-8.0) Ur Specific [place] 1.028 (1.001-1.035) Urine Protein Trace H (Negative) Urine Glucose (UA) Negative (Negative) Urine Ketones Negative (Negative) Urine Blood Trace H (Negative) Urine Nitrite Negative (Negative) Urine Bilirubin Negative (Negative) Urine Urobilinogen 3.0 (<2.0) mg/dL Ur Leukocyte Esterase Negative (Negative) Urine RBC 1 (0-5) /hpf Urine WBC 2 (0-5) /hpf Ur Squamous Epith Cells 3 (0-4) /hpf Hyaline Casts 1 (0-2) /lpf Urine Mucus Few H (None) /hpf Urine HCG, Qual (Not Detectd) Disposition Clinical Impression: Abdominal pain Disposition: HOME SELF-CARE Condition: Good Instructions (If sedation given, give patient instructions): Abdominal Pain (ED) Prescriptions: Dicyclomine [Bentyl] 20 mg PO QID #15 tablet Is patient prescribed a controlled substance at d/c from ED?: No Referrals: Cristal Huerta MD [Primary Care Provider] - 1-2 days
[2021-10-21 02:05] VITALS: BP 124/82; PULSE 77; RESP 20
[2021-10-21] MEDS ORDERED: ACETAMINOPHEN TAB 500 MG TAB PO PRN (07:49)
== END 2021-10-21 02:05 | disposition home or self-care (01) ==
LOC: EC 23:21
DX: R10.9 Unspecified abdominal pain (principal); F17.290 Nicotine dependence, other tobacco product, uncomplicated
CPT/HCPCS: 36415; 74176; 80053; 81001; 81025; 82150; 83690; 85025; 86140; 99284

== ENCOUNTER 2021-11-07 08:46 | Emergency (ER) | payer OTHER ==
[2021-11-07 08:51] VITALS: RESP 18; TEMP 97.2
--- NOTE | 2021-11-07 09:31 | ED ---
Skin/Abscess/FB HPI - General Chief complaint: Skin/Abscess/Foreign Body Stated complaint: Rash Time Seen by Provider: 11/07/21 08:55 Source: patient, RN notes reviewed Mode of arrival: ambulatory Limitations: no limitations - History of Present Illness Initial comments: 21-year-old female presented to the emergency Department with chief complaint rash. Patient states started 1 week ago. Patient states that it's. She started in his nostrils continue spread denies any known new products. Patient has appears or chills breathing has not taken medications. - Related Data Home Medications Medication Instructions Recorded Confirmed Ibuprofen [Motrin] 800 mg PO Q6H PRN 07/04/17 07/04/17 Previous Rx's Medication Instructions Recorded Dicyclomine [Bentyl] 10 mg PO TID #20 capsule 07/04/17 Ondansetron Odt [Zofran ODT] 4 mg PO Q8HR PRN #20 tab 07/04/17 Cyclobenzaprine [Flexeril] 10 mg PO TID #12 tab 10/19/19 Ibuprofen [Motrin] 600 mg PO Q8HR PRN #20 tab 10/19/19 Ondansetron [Zofran ODT] 4 mg PO Q8HR PRN #10 tab 04/10/21 Ondansetron [Zofran ODT] 4 mg PO Q8HR PRN #10 tab 08/24/21 Dicyclomine [Bentyl] 20 mg PO QID #15 tablet 10/21/21 hydrOXYzine HCL [Atarax] 25 mg PO TID PRN #15 tab 11/07/21 predniSONE 50 mg PO DAILY #5 tab 11/07/21 Allergies Allergy/AdvReac Type Severity Reaction Status Date / Time No Known Allergies Allergy Verified 10/20/21 23:40 Review of Systems ROS Statement: Those systems with pertinent positive or pertinent negative responses have been documented in the HPI. ROS Other: All systems not noted in ROS Statement are negative. Past Medical History Past Medical History: No Reported History Additional Past Medical History / Comment(s): ovarian cyst History of Any Multi-Drug Resistant Organisms: None Reported Past Surgical History: No Surgical Hx Reported Past Psychological History: No Psychological Hx Reported Smoking Status: Vaper Past Alcohol Use History: None Reported Past Drug Use History: None Reported General Exam Limitations: no limitations General appearance: alert, in no apparent distress Head exam: Present: atraumatic, normocephalic, normal inspection Eye exam: Present: normal appearance, PERRL, EOMI. Absent: scleral icterus, conjunctival injection, periorbital swelling ENT exam: Present: normal exam, normal oropharynx, mucous membranes moist Neck exam: Present: normal inspection, full ROM. Absent: tenderness, meningismu s, lymphadenopathy Respiratory exam: Present: normal lung sounds bilaterally. Absent: respiratory distress, wheezes, rales, rhonchi, stridor Cardiovascular Exam: Present: regular rate, normal rhythm, normal heart sounds. Absent: systolic murmur, diastolic murmur, rubs, gallop, clicks Neurological exam: Present: alert, oriented X3 Skin exam: Present: warm, dry, intact, rash Course Vital Signs 11/07/21 08:47 Temperature 97.2 F L Pulse Rate 84 Respiratory 18 Rate Blood Pressure 130/87 O2 Sat by Pulse 96 Oximetry Medical Decision Making - Medical Decision Making Patient presented have ALLERGIC reaction was started on steroids, Atarax return parameters were discussed. Disposition Clinical Impression: Allergic reaction Disposition: HOME SELF-CARE Condition: Stable Instructions (If sedation given, give patient instructions): General Allergic Reaction (ED) Additional Instructions: Please return to the Emergency Department if symptoms worsen or any other concerns. Prescriptions: hydrOXYzine HCL [Atarax] 25 mg PO TID PRN #15 tab PRN Reason: itching predniSONE 50 mg PO DAILY #5 tab Is patient prescribed a controlled substance at d/c from ED?: No Referrals: Cristal Huerta MD [Primary Care Provider] - 1-2 days Time of Disposition: 09:30
[2021-11-07 09:45] VITALS: BP 124/67; PULSE 74
== END 2021-11-07 09:44 | disposition home or self-care (01) ==
LOC: EC 08:46
DX: T78.40XA Allergy, unspecified, initial encounter (principal); F17.290 Nicotine dependence, other tobacco product, uncomplicated
CPT/HCPCS: 99282

== ENCOUNTER 2022-05-09 15:24 | Emergency (ER) | payer OTHER ==
[2022-05-09 15:32] VITALS: TEMP 98.2
[2022-05-09 15:55] LABS: Appearance,Urine Clear (Clear); Bacteria,Urine Rare /hpf; Bilirubin,Urine Negative (Negative); Blood,Urine Large (Negative); Color,Urine Light Yellow; Glucose,Urine (UA) Negative (Negative); Ketones,Urine Negative (Negative); Leukocyte Esterase,Urine Negative (Negative); Mucus,Urine Moderate /hpf; Nitrite,Urine Negative (Negative); Protein,Urine Negative (Negative); RBC,Urine 104 /hpf (0-5); Specific Gravity,Urine 1.009 (1.001-1.035); Squamous Epithelial Cell,Urine 1 /hpf (0-4); Urobilinogen,Urine <2.0 mg/dL (<2.0); WBC,Urine 3 /hpf (0-5)
[2022-05-09] MEDS ORDERED: ONDANSETRON 4 MG/2 ML VIAL IVP STA (17:48)
[2022-05-09] MEDS ORDERED: HYDROmorphone 0.5 MG/0.5 ML SYRINGE IVP STA (17:48)
[2022-05-09] MEDS ORDERED: CEPHALEXIN 500 MG CAP PO STA (17:49)
[2022-05-09 18:04] VITALS: RESP 18
[2022-05-09 18:13] LABS: Basophils # (A) 0.1 k/uL (0-0.2); Basophils % (A) 1 %; Eosinophils # (A) 0.2 k/uL (0-0.7); Eosinophils % (A) 2 %; HGB 14.1 gm/dL (11.4-16.0); Lymphocytes # (A) 2.4 k/uL (1.0-4.8); Lymphocytes % (A) 23 %; MCH 26.8 pg (25.0-35.0); MCHC 32.1 g/dL (31.0-37.0); MCV 83.7 fL (80.0-100.0); Mean Platelet Volume 8.3; Monocytes # (A) 0.5 k/uL (0-1.0); Monocytes % (A) 5 %; Neutrophils # (A) 7.1 k/uL (1.3-7.7); Neutrophils % (A) 68 %; Platelet Count 324 k/uL (150-450); RBC 5.25 m/uL (3.80-5.40); RDW 14.4 % (11.5-15.5); WBC 10.5 k/uL (4.0-11.0)
[2022-05-09 18:22] LABS: ALT 14 U/L (4-34); AST 19 U/L (14-36); African American GFR (CKD) >90 (>60 ml/min/1.73 sqM); Albumin 4.3 g/dL (3.5-5.0); Alkaline Phosphatase 81 U/L (38-126); Anion Gap 8 mmol/L; Blood Urea Nitrogen 7 mg/dL (7-17); Calcium 8.9 mg/dL (8.4-10.2); Carbon Dioxide 23 mmol/L (22-30); Chloride 106 mmol/L (98-107); Glucose 100 mg/dL (74-99); Lipase 66 U/L (23-300); Non-African American GFR(CKD) >90 (>60 ml/min/1.73 sqM); Potassium 4.1 mmol/L (3.5-5.1); Sodium 137 mmol/L (137-145); Total Bilirubin 0.2 mg/dL (0.2-1.3); Total Protein 7.5 g/dL (6.3-8.2)
[2022-05-09 18:53] VITALS: BP 130/93; PULSE 64
--- NOTE | 2022-05-09 19:18 | US ---
EXAMINATION TYPE: US gallbladder DATE OF EXAM: 05/09/2022 COMPARISON: CT 10/21/21 CLINICAL HISTORY: RUQ pain. RUQ pain x 3 days. NPO x 5 hours TECHNIQUE: Multiple sonographic images of the right upper quadrant are obtained. FINDINGS: EXAM MEASUREMENTS: Liver Length: 12.7 cm Gallbladder Wall: 0.23 cm CBD: 0.30 cm Right Kidney: 9.1 x 4.4 x 3.9 cm RHIT NOTES: Pancreas: Obscured by bowel gas Liver: wnl Gallbladder: wnl Evidence for sonographic Rodney's sign: No CBD: wnl Right Kidney: wnl IMPRESSION: Normal exam. No gallstones or dilated ducts.
--- NOTE | 2022-05-09 19:19 | US ---
EXAMINATION TYPE: US pelvic transvaginal DATE OF EXAM: 05/09/2022 COMPARISON: 08/24/21 CLINICAL HISTORY: right ovarian cyst concern. Hx of ovarian cysts. TECHNIQUE: . Transvaginal sonographic images of the pelvis were acquired Date of LMP: Around 04/25/22 EXAM MEASUREMENTS: Uterus: 6.4 x 4.7 x 3.3 cm Endometrial Stripe: 0.32 cm Right Ovary: 2.1 x 2.0 x 1.2 cm Left Ovary: 2.0 x 1.7 x 1.5 cm 1. Uterus: Retroverted WNL 2. Endometrium: wnl 3. Right Ovary: wnl 4. Left Ovary: wnl 5. Bilateral Adnexa: wnl 6. Posterior cul-de-sac: wnl No obvious pathology seen. IMPRESSION: Normal uterus and endometrium. No adnexal mass. No free fluid. MTDD
--- NOTE | 2022-05-09 20:13 | CT ---
EXAMINATION TYPE: CT abdomen pelvis w con DATE OF EXAM: 05/09/2022 COMPARISON: 10/21/2021 HISTORY: RLQ pain CT DLP: 1388.5 mGycm Automated exposure control for dose reduction was used. CONTRAST: Performed with IV Contrast, patient injected with 100 mL of Isovue 300. Images obtained from the diaphragm to the floor of the pelvis with the IV contrast. Lung bases are clear. No pleural effusion. Heart size is normal. No pericardial effusion. Liver spleen stomach pancreas and gallbladder appear normal. The bile ducts are not dilated. There is no adrenal mass. Kidneys show satisfactory contrast opacification. There is no hydronephrosi s. Delayed images show normal renal excretion. Ureters are not dilated. There is no retroperitoneal a denopathy. The bladder distends smoothly. No inguinal hernia. Uterus is retroverted. No pelvic mass. No free fluid in the pelvis. There are sigmoid diverticula. No diverticulitis. Appendix is posterior and medial and appears normal. The lumbar spine is intact. No compression fracture. Bony pelvis is intact. The hip joints are intact . There is no mesenteric edema. No ascites or free air. No sign of a bowel obstruction. IMPRESSION: Normal appendix. Negative CT scan abdomen and pelvis. There are a few sigmoid diverticula noted.
--- NOTE | 2022-05-09 20:19 | ED ---
Female Urogenital HPI - General Chief complaint: Vaginal Bleeding Stated complaint: abdominal pain Time Seen by Provider: 05/09/22 17:27 Source: patient Mode of arrival: ambulatory Limitations: no limitations - History of Present Illness Initial comments: Patient is a 21-year-old female with a past medical history ovarian cyst who presents to the emergency department with a chief complaint of right-sided abdominal pain. Patient states the pain has been occurring consistently for the past 3 days however has been intermittent for the past couple weeks. Patient states the pain is right-sided in the upper and lower abdomen, 8/9 in severity. She denies radiation to the side or back. States the pain keeps her up at night when she is trying to sleep. States during the past 3 days she has experienced vaginal bleeding. Her last menstrual period was approximately 2 weeks ago, unknown date. Patient states her periods are very irregular usually lasts around one week with mild to heavy bleeding. Patient states for the past 3 days she has been experiencing heavy vaginal bleeding. Patient states she saturated over 20 pads today. Endorses nausea without vomiting. Admits to burning with urination. Denies increased urinary frequency/urgency. Denies fever, chills, lightheadedness, dizziness, shortness of breath, chest pain, diarrhea, and other concerns. States last bowel movement was today which was normal, nonbloody. Denies history of abdominal surgery. Does not follow with a equipment operat0r. Denies chance of . - Related Data Home Medications Medication Instructions Recorded Confirmed Ibuprofen [Motrin] 800 mg PO Q6H PRN 07/04/17 07/04/17 Previous Rx's Medication Instructions Recorded Dicyclomine [Bentyl] 10 mg PO TID #20 capsule 07/04/17 Ondansetron Odt [Zofran ODT] 4 mg PO Q8HR PRN #20 tab 07/04/17 Cyclobenzaprine [Flexeril] 10 mg PO TID #12 tab 10/19/19 Ibuprofen [Motrin] 600 mg PO Q8HR PRN #20 tab 10/19/19 Ondansetron [Zofran ODT] 4 mg PO Q8HR PRN #10 tab 04/10/21 Ondansetron [Zofran ODT] 4 mg PO Q8HR PRN #10 tab 08/24/21 Dicyclomine [Bentyl] 20 mg PO QID #15 tablet 10/21/21 hydrOXYzine HCL [Atarax] 25 mg PO TID PRN #15 tab 11/07/21 predniSONE 50 mg PO DAILY #5 tab 11/07/21 Cephalexin [Keflex] 500 mg PO Q6HR #20 cap 05/09/22 Dicyclomine [Bentyl] 20 mg PO TID #30 tablet 05/09/22 Ondansetron Odt [Zofran Odt] 4 mg PO Q8HR PRN #21 tab 05/09/22 Allergies Allergy/AdvReac Type Severity Reaction Status Date / Time No Known Allergies Allergy Verified 05/09/22 15:32 Review of Systems ROS Statement: Those systems with pertinent positive or pertinent negative responses have been documented in the HPI. ROS Other: All systems not noted in ROS Statement are negative. Past Medical History Past Medical History: No Reported History Additional Past Medical History / Comment(s): ovarian cyst History of Any Multi-Drug Resistant Organisms: None Reported Past Surgical History: No Surgical Hx Reported Past Psychological History: No Psychological Hx Reported Smoking Status: Vaper Past Alcohol Use History: None Reported Past Drug Use History: None Reported General Exam Limitations: no limitations General appearance: alert, in no apparent distress Head exam: Present: atraumatic, normocephalic, normal inspection Eye exam: Present: normal appearance, PERRL, EOMI. Absent: scleral icterus, conjunctival injection, periorbital swelling Respiratory exam: Present: normal lung sounds bilaterally. Absent: respiratory distress, wheezes, rales, rhonchi, stridor Cardiovascular Exam: Present: regular rate, normal rhythm, normal heart sounds. Absent: systolic murmur, diastolic murmur, rubs, gallop, clicks GI/Abdominal exam: Present: soft, tenderness (RUQ and RLQ. negative rodney sign ), normal bowel sounds. Absent: distended, guarding, rebound, rigid Back exam: Absent: CVA tenderness (R), CVA tenderness (L) Neurological exam: Present: alert, oriented X3, CN II-XII intact Psychiatric exam: Present: normal affect, normal mood Skin exam: Present: warm, dry, intact, normal color. Absent: rash Course Vital Signs 05/09/22 05/09/22 05/09/22 15:30 18:00 18:52 Temperature 98.2 F Pulse Rate 68 70 64 Respiratory 16 18 18 Rate Blood Pressure 142/99 130/93 O2 Sat by Pulse 97 98 95 Oximetry Medical Decision Making - Medical Decision Making This is a 21-year-old female who presents with right upper quadrant right lower quadrant abdominal pain. Thorough history and examination performed. Patient is well-appearing. She is afebrile. The abdomen is soft. There is moderate tenderness with palpation of the right upper quadrant and right lower quadrant of abdomen. Negative Rodney sign. With patient's history of ovarian cyst there is some suspicion for cyst. With patient's right upper quadrant pain there is concern for gallbladder pathology. CBC and CMP were relatively unremarkable. Urinalysis reveals rare bacteria. Also reveals blood, likely due to vaginal bleeding.Pelvic ultrasound shows a normal uterus, endometrium, and ovaries. Gallbladder ultrasound shows no galls tones or dilated ducts. I then obtain a CT of the abdomen and pelvis with contrast which was negative for acute process. Pain and nausea controlled. Results discussed with patient. At this time there are no diagnostic studies to explain patient's symptoms. Patient to follow-up with primary care provider and I will refer her to a equipment operat0r for dysfunctional uterine bleeding. Will send her home with symptomatic management as well as Keflex for urinary tract infection. Return parameters discussed. She verbalizes understanding and is agreeable to this plan. Dr. Garcia is my attending. - Lab Data Result diagrams: 05/09/22 18:06 05/09/22 18:06 Lab Results 05/09/22 05/09/22 05/09/22 Range/Units 15:43 15:43 18:01 WBC (4.0-11.0) k/uL RBC (3.80-5.40) m/uL Hgb (11.4-16.0) gm/dL Hct (34.0-46.0) % MCV (80.0-100.0) fL MCH (25.0-35.0) pg MCHC (31.0-37.0) g/dL RDW (11.5-15.5) % Plt Count (150-450) k/uL MPV Neutrophils % % Lymphocytes % % Monocytes % % Eosinophils % % Basophils % % Neutrophils # (1.3-7.7) k/uL Lymphocytes # (1.0-4.8) k/uL Monocytes # (0-1.0) k/uL Eosinophils # (0-0.7) k/uL Basophils # (0-0.2) k/uL Sodium (137-145) mmol/L Potassium (3.5-5.1) mmol/L Chloride (98-107) mmol/L Carbon Dioxide (22-30) mmol/L Anion Gap mmol/L BUN (7-17) mg/dL Creatinine (0.52-1.04) mg/dL Est GFR (CKD-EPI)AfAm (>60 ml/min/1.73 sqM) Est GFR (CKD-EPI)NonAf (>60 ml/min/1.73 sqM) Glucose (74-99) mg/dL Calcium (8.4-10.2) mg/dL Total Bilirubin (0.2-1.3) mg/dL AST (14-36) U/L ALT (4-34) U/L Alkaline Phosphatase (38-126) U/L Total Protein (6.3-8.2) g/dL Albumin (3.5-5.0) g/dL Lipase (23-300) U/L Urine Color Light Yellow Urine Appearance Clear (Clear) Urine pH 6.0 (5.0-8.0) Ur Specific Calvin 1.009 (1.001-1.035) Urine Protein Negative (Negative) Urine Glucose (UA) Negative (Negative) Urine Ketones Negative (Negative) Urine Blood Large H (Negative) Urine Nitrite Negative (Negative) Urine Bilirubin Negative (Negative) Urine Urobilinogen <2.0 (<2.0) mg/dL Ur Leukocyte Esterase Negative (Negative) Urine RBC 104 H (0-5) /hpf Urine WBC 3 (0-5) /hpf Ur Squamous Epith Cells 1 (0-4) /hpf Urine Bacteria Rare H (None) /hpf Urine Mucus Moderate H (None) /hpf Urine HCG, Qual Not Detected (Not Detectd) Blood Type Recheck No Previous Record Bld Type Recheck Status CABO Indicated Spec Expiration Date 05/12/2022 - 230005/09/22 05/09/22 Range/Units 18:06 18:06 WBC 10.5 (4.0-11.0) k/uL RBC 5.25 (3.80-5.40) m/uL Hgb 14.1 (11.4-16.0) gm/dL Hct 44.0 (34.0-46.0) % MCV 83.7 (80.0-100.0) fL MCH 26.8 (25.0-35.0) pg MCHC 32.1 (31.0-37.0) g/dL RDW 14.4 (11.5-15.5) % Plt Count 324 (150-450) k/uL MPV 8.3 Neutrophils % 68 % Lymphocytes % 23 % Monocytes % 5 % Eosinophils % 2 % Basophils % 1 % Neutrophils # 7.1 (1.3-7.7) k/uL Lymphocytes # 2.4 (1.0-4.8) k/uL Monocytes # 0.5 (0-1.0) k/uL Eosinophils # 0.2 (0-0.7) k/uL Basophils # 0.1 (0-0.2) k/uL Sodium 137 (137-145) mmol/L Potassium 4.1 (3.5-5.1) mmol/L Chloride 106 (98-107) mmol/L Carbon Dioxide 23 (22-30) mmol/L Anion Gap 8 mmol/L BUN 7 (7-17) mg/dL Creatinine 0.61 (0.52-1.04) mg/dL Est GFR (CKD-EPI)AfAm >90 (>60 ml/min/1.73 sqM) Est GFR (CKD-EPI)NonAf >90 (>60 ml/min/1.73 sqM) Glucose 100 H (74-99) mg/dL Calcium 8.9 (8.4-10.2) mg/dL Total Bilirubin 0.2 (0.2-1.3) mg/dL AST 19 (14-36) U/L ALT 14 (4-34) U/L Alkaline Phosphatase 81 (38-126) U/L Total Protein 7.5 (6.3-8.2) g/dL Albumin 4.3 (3.5-5.0) g/dL Lipase 66 (23-300) U/L Urine Color Urine Appearance (Clear) Urine pH (5.0-8.0) Ur Specific Calvin (1.001-1.035) Urine Protein (Negative) Urine Glucose (UA) (Negative) Urine Ketones (Negative) Urine Blood (Negative) Urine Nitrite (Negative) Urine Bilirubin (Negative) Urine Urobilinogen (<2.0) mg/dL Ur Leukocyte Esterase (Negative) Urine RBC (0-5) /hpf Urine WBC (0-5) /hpf Ur Squamous Epith Cells (0-4) /hpf Urine Bacteria (None) /hpf Urine Mucus (None) /hpf Urine HCG, Qual (Not Detectd) Blood Type Recheck Bld Type Recheck Status Spec Expiration Date Disposition Clinical Impression: Metrorrhagia, Abdominal pain, Nausea & vomiting, Urinary tract infection Disposition: HOME SELF-CARE Instructions (If sedation given, give patient instructions): Abnormal (Dysfunctional) Uterine Bleeding (ED), Urinary Tract Infection in Women (ED), Abdominal Pain (ED) Additional Instructions: Please take medication as directed. Follow-up with primary care provider and equipment operat0r listed in discharge instructions. Return to the emergency department if you experience new, concerning, or worsening symptoms. Prescriptions: Dicyclomine [Bentyl] 20 mg PO TID #30 tablet Cephalexin [Keflex] 500 mg PO Q6HR #20 cap Ondansetron Odt [Zofran Odt] 4 mg PO Q8HR PRN #21 tab PRN Reason: Nausea Is patient prescribed a controlled substance at d/c from ED?: No Referrals: Johnny Garcia MD [Primary Care Provider] - 1-2 days Blayne Morales MD [STAFF PHYSICIAN] - 1-2 days Time of Disposition: 20:22
== END 2022-05-09 21:07 | disposition home or self-care (01) ==
LOC: EC 15:24
DX: N92.1 Excessive and frequent menstruation with irregular cycle (principal); N39.0 Urinary tract infection, site not specified; F17.209 Nicotine dependence, unspecified, with unspecified nicotine-induced disorders
CPT/HCPCS: 36415; 86900; 86901; 80053; 83690; 85025; 86850; 81001; 81025; 76856; 76830; 76705; 74177; 99284; 96375; 96374; J2405; J1170; Q9967

== ENCOUNTER 2022-07-11 18:36 | Emergency (ER) | payer OTHER ==
[2022-07-11 19:52] VITALS: RESP 18
--- NOTE | 2022-07-11 20:22 | XR ---
EXAMINATION TYPE: XR shoulder complete RT DATE OF EXAM: 07/11/2022 8:04 PM INDICATION: Patient age:Female; 22 years old; Reason for study: shoulder injury; COMPARISON: None TECHNIQUE: The right shoulder was examined in AP, internally rotated and scapular Y projections. . FINDINGS: No evidence of acute osseous pathology, joint dislocation, or soft tissue swelling. The remaining por tions of the visualized chest are unremarkable. IMPRESSION: No acute osseous pathology.
[2022-07-11] MEDS ORDERED: DEXAMETHASONE SOD PHOSPHATE 10 MG/ML 1 ML VIAL IM STA (20:46)
[2022-07-11] MEDS ORDERED: ORPHENADRINE 30 MG/ML 2 ML VIAL IM STA (20:46)
--- NOTE | 2022-07-11 20:47 | ED ---
Upper Extremity HPI - General Chief Complaint: Extremity Injury, Upper Stated Complaint: shoulder pain Time Seen by Provider: 07/11/22 20:14 Source: patient Mode of arrival: ambulatory - History of Present Illness Initial Comments: Patient is a 22-year-old female presenting with chief complaint of right shoulder pain. Patient states that 2 days ago while at work she felt her sh oulder pop. Since then she is been experiencing shoulder soreness, she admits to pain with range of motion. She states that the majority of the pain is located between the neck and shoulder joint. States that the muscle feels tight. She also states that she is having shooting pain and occasional numbness and tingling shooting down the arm. She has not taken any supportive treatment at home. She denies any chest pain, shortness of breath, fever, chills, nausea, vomiting, weakness, loss of range of motion, joint swelling, warmth, redness. - Related Data Home Medications Medication Instructions Recorded Confirmed Ibuprofen [Motrin] 800 mg PO Q6H PRN 07/04/17 07/04/17 Previous Rx's Medication Instructions Recorded Dicyclomine [Bentyl] 10 mg PO TID #20 capsule 07/04/17 Ondansetron Odt [Zofran ODT] 4 mg PO Q8HR PRN #20 tab 07/04/17 Cyclobenzaprine [Flexeril] 10 mg PO TID #12 tab 10/19/19 Ibuprofen [Motrin] 600 mg PO Q8HR PRN #20 tab 10/19/19 Ondansetron [Zofran ODT] 4 mg PO Q8HR PRN #10 tab 04/10/21 Ondansetron [Zofran ODT] 4 mg PO Q8HR PRN #10 tab 08/24/21 Dicyclomine [Bentyl] 20 mg PO QID #15 tablet 10/21/21 hydrOXYzine HCL [Atarax] 25 mg PO TID PRN #15 tab 11/07/21 predniSONE 50 mg PO DAILY #5 tab 11/07/21 Cephalexin [Keflex] 500 mg PO Q6HR 5 Days #20 cap 05/09/22 Dicyclomine [Bentyl] 20 mg PO TID PRN #21 tablet 05/09/22 Ondansetron Odt [Zofran Odt] 4 mg PO Q8HR PRN #21 tab 05/09/22 Cyclobenzaprine [Flexeril] 5 mg PO HS PRN #10 tab 07/11/22 methylPREDNISolone Dose Pack 4 mg PO DIRECTED #1 packet 07/11/22 [Medrol Dose Pack] Allergies Allergy/AdvReac Type Severity Reaction Status Date / Time No Known Allergies Allergy Verified 07/11/22 19:52 Review of Systems ROS Statement: Those systems with pertinent positive or pertinent negative responses have been documented in the HPI. ROS Other: All systems not noted in ROS Statement are negative. Past Medical History Past Medical History: No Reported History Additional Past Medical History / Comment(s): ovarian cyst History of Any Multi-Drug Resistant Organisms: None Reported Past Surgical History: No Surgical Hx Reported Past Psychological History: No Psychological Hx Reported Smoking Status: Vaper Past Alcohol Use History: None Reported Past Drug Use History: None Reported General Exam Limitations: no limitations General appearance: alert, in no apparent distress Head exam: Present: atraumatic, normocephalic, normal inspection Eye exam: Present: normal appearance, PERRL, EOMI. Absent: scleral icterus, conjunctival injection, periorbital swelling Neck exam: Present: normal inspection Respiratory exam: Present: normal lung sounds bilaterally. Absent: respiratory distress, wheezes, rales, rhonchi, stridor Cardiovascular Exam: Present: regular rate, normal rhythm, normal heart sounds. Absent: systolic murmur, diastolic murmur, rubs, gallop, clicks Right Shoulder Exam: Present: normal inspection, full ROM. Absent: tenderness, swelling, ecchymosis, erythema Upper Arm exam: Present: normal inspection, full ROM. Absent: tenderness, swelling Elbow exam: Present: normal inspection, full ROM. Absent: tenderness, swelling Forearm Wrist exam: Present: normal inspection, full ROM. Absent: tenderness, swelling Neuro motor exam: Present: wrist extension intact, thumb opposition intact, thumb IP flexion intact, thumb adduction intact, fingers 2-5 abduction intact Vascular: Present: radial pulse (2+). Absent: vascular compromise Neurological exam: Present: alert, oriented X3, CN II-XII intact Psychiatric exam: Present: normal affect, normal mood Skin exam: Present: warm, dry, intact, normal color. Absent: rash Course Vital Signs 07/11/22 19:47 Temperature 98.3 F Pulse Rate 93 Respiratory 18 Rate Blood Pressure 130/89 O2 Sat by Pulse 100 Oximetry Medical Decision Making - Medical Decision Making Patient is a 22-year-old female presenting with chief complaint of right shoulder pain. Has been ongoing for the last 2 days, patient states 2 days ago she felt her shoulder pop. She is having pain with range of motion in occasional numbness and tingling. On examination she is neurovascularly intact, she has full range of motion though she doesn't pain. X-ray shows no acute osseous abnormality. Patient was educated on supportive treatment. She is provided with a prescription for Medrol Dosepak and Flexeril. Provided with arm sling. Rest, continue Motrin and Tylenol as needed for pain control. Follow-up with PCP. Report back to ER with any new or worsening symptoms. Discussed return parameters and answered all questions. Patient conveyed verbal understanding and agreed to the plan. I discussed this case in detail with my attending Dr. Aguilar Disposition Clinical Impression: Strain of shoulder Disposition: HOME SELF-CARE Condition: Good Instructions (If sedation given, give patient instructions): Shoulder Sprain (ED), Shoulder Pain (ED) Additional Instructions: Follow-up with PCP. Report back to ER with any new or worsening symptoms. You have been provided a prescription for a muscle relaxer and a steroid pack. Muscle relaxer may cause drowsiness, do not take before driving or operating heavy machinery. Take Motrin and Tylenol as needed for pain control. Prescriptions: Cyclobenzaprine [Flexeril] 5 mg PO HS PRN #10 tab PRN Reason: Spasms methylPREDNISolone Dose Pack [Medrol Dose Pack] 4 mg PO DIRECTED #1 packet Is patient prescribed a controlled substance at d/c from ED?: No Referrals: Johnny Garcia MD [Primary Care Provider] - 1-2 days Time of Disposition: 20:47
[2022-07-11 21:51] VITALS: BP 141/98; PULSE 82; TEMP 98.1
== END 2022-07-11 21:50 | disposition home or self-care (01) ==
LOC: EC 18:36
DX: S46.911A Strain of unspecified muscle, fascia and tendon at shoulder and upper arm level, right arm, initial encounter (principal); F17.290 Nicotine dependence, other tobacco product, uncomplicated; X50.9XXA Other and unspecified overexertion or strenuous movements or postures, initial encounter; Y99.0 Civilian activity done for income or pay
CPT/HCPCS: 73030; 99283; 96372; J1100; J2360

== ENCOUNTER 2022-09-20 12:52 | Emergency (ER) | payer OTHER ==
--- NOTE | 2022-09-20 14:13 | ED ---
Upper Extremity HPI - General Chief Complaint: Extremity Injury, Upper Stated Complaint: shoulder pain Time Seen by Provider: 09/20/22 13:43 Source: patient, RN notes reviewed, old records reviewed Mode of arrival: ambulatory Limitations: no limitations - History of Present Illness Initial Comments: Patient is a 22-year-old female presenting to the emergency room requesting a clearance to return to work permit entry that occurred at work approximately 2 months ago. She reports that she was lifting some things at work and injured her right shoulder at that time. She was evaluated here in the emergency room and placed on work restrictions. Unfortunately she has not been able to follow-up with [facility] or her primary care provider. Her work is to return back to work until she is cleared to return without restrictions by a medical provider. She reports that the shoulder has not been quite some time. She denies any range of motion impairment she does report some occasional popping/cracking here sounds when she does full range of motion at times but denies pain with this. She denies any swelling erythema near or other episodes of trauma. She denies any significant past medical history denies any other complaints or concerns at this time. - Related Data Home Medications Medication Instructions Recorded Confirmed Ibuprofen [Motrin] 800 mg PO Q6H PRN 07/04/17 07/04/17 Previous Rx's Medication Instructions Recorded Dicyclomine [Bentyl] 10 mg PO TID #20 capsule 07/04/17 Ondansetron Odt [Zofran ODT] 4 mg PO Q8HR PRN #20 tab 07/04/17 Cyclobenzaprine [Flexeril] 10 mg PO TID #12 tab 10/19/19 Ibuprofen [Motrin] 600 mg PO Q8HR PRN #20 tab 10/19/19 Ondansetron [Zofran ODT] 4 mg PO Q8HR PRN #10 tab 04/10/21 Ondansetron [Zofran ODT] 4 mg PO Q8HR PRN #10 tab 08/24/21 Dicyclomine [Bentyl] 20 mg PO QID #15 tablet 10/21/21 hydrOXYzine HCL [Atarax] 25 mg PO TID PRN #15 tab 11/07/21 predniSONE 50 mg PO DAILY #5 tab 11/07/21 Cephalexin [Keflex] 500 mg PO Q6HR 5 Days #20 cap 05/09/22 Dicyclomine [Bentyl] 20 mg PO TID PRN #21 tablet 05/09/22 Ondansetron Odt [Zofran Odt] 4 mg PO Q8HR PRN #21 tab 05/09/22 Cyclobenzaprine [Flexeril] 5 mg PO HS PRN #10 tab 07/11/22 methylPREDNISolone Dose Pack 4 mg PO DIRECTED #1 packet 07/11/22 [Medrol Dose Pack] Allergies Allergy/AdvReac Type Severity Reaction Status Date / Time No Known Allergies Allergy Verified 09/20/22 13:36 Review of Systems ROS Statement: Those systems with pertinent positive or pertinent negative responses have been documented in the HPI. ROS Other: All systems not noted in ROS Statement are negative. Past Medical History Past Medical History: No Reported History Additional Past Medical History / Comment(s): ovarian cyst History of Any Multi-Drug Resistant Organisms: None Reported Past Surgical History: No Surgical Hx Reported Past Psychological History: No Psychological Hx Reported Smoking Status: Vaper Past Alcohol Use History: None Reported Past Drug Use History: None Reported General Exam Limitations: no limitations General appearance: alert, in no apparent distress Head exam: Present: atraumatic, normocephalic, normal inspection Eye exam: Present: normal appearance, PERRL, EOMI. Absent: scleral icterus, co njunctival injection, periorbital swelling ENT exam: Present: normal exam, mucous membranes moist Neck exam: Present: normal inspection, full ROM Respiratory exam: Absent: respiratory distress, accessory muscle use Cardiovascular Exam: Present: regular rate GI/Abdominal exam: Absent: distended Right Shoulder Exam: Present: normal inspection, full ROM. Absent: tenderness, swelling, abrasion, laceration, ecchymosis, deformity, crepitus, dislocation, erythema, tenderness over AC joint Back exam: Present: normal inspection Neurological exam: Present: alert, oriented X3, CN II-XII intact Psychiatric exam: Present: normal affect, normal mood Skin exam: Present: warm, dry, intact, normal color. Absent: rash Course Vital Signs 09/20/22 09/20/22 13:32 14:43 Temperature 98 F 97.8 F Pulse Rate 88 82 Respiratory 18 16 Rate Blood Pressure 144/87 146/105 O2 Sat by Pulse 99 99 Oximetry Medical Decision Making - Medical Decision Making 22-year-old female presenting to the emergency room requesting medical clearance to return to work after an injury to her shoulder in July. She had workups completed here on 07/11/2022 regarding injury. Shoulder x-ray image and report reviewed demonstrating no dislocation or fracture at that time. Given benign exam no indication for further diagnostic imaging or laboratory studies will cleared to return to work without restrictions. Will discharge home in stable condition with work clearance and advise follow-up with primary care provider. Case discussed with Dr. Leonard. Disposition Clinical Impression: Shoulder injury Disposition: HOME SELF-CARE Condition: Stable Instructions (If sedation given, give patient instructions): Shoulder Sprain (ED) Additional Instructions: Medically cleared to return to work. If shoulder pain occurs please utilize Tylenol or Motrin as needed [id number] for pain. Range of motion as tolerated encouraged. Please return to the Emergency Department if symptoms worsen or any other concerns. Is patient prescribed a controlled substance at d/c from ED?: No Referrals: None,Stated [Primary Care Provider] - 1-2 days Time of Disposition: 14:12
[2022-09-20 14:44] VITALS: BP 146/105; PULSE 82; RESP 16; TEMP 97.8
== END 2022-09-20 14:46 | disposition home or self-care (01) ==
LOC: EC 12:52
DX: S49.91XA Unspecified injury of right shoulder and upper arm, initial encounter (principal); F17.290 Nicotine dependence, other tobacco product, uncomplicated; X50.0XXA Overexertion from strenuous movement or load, initial encounter; Y99.0 Civilian activity done for income or pay
CPT/HCPCS: 99283

== ENCOUNTER 2022-10-15 15:45 | Emergency (ER) | payer OTHER ==
[2022-10-15 16:14] VITALS: TEMP 97.7
--- NOTE | 2022-10-15 16:44 | ED ---
Female Urogenital HPI - General Source: patient, RN notes reviewed Mode of arrival: ambulatory Limitations: no limitations - History of Present Illness Last Menstrual Period: 10/15/22 <Estrella Giles - Last Filed: 10/15/22 16:39> - General Source: patient, RN notes reviewed Mode of arrival: ambulatory Limitations: no limitations - History of Present Illness MD Complaint: vaginal bleeding Onset/Timin -: week(s) <Ayesha Rodriges - Last Filed: 10/18/22 10:24> - General Chief complaint: Vaginal Bleeding Stated complaint: Abd pain Time Seen by Provider: 10/15/22 16:39 - History of Present Illness Initial comments: Medical screening exam: Patient is a 22-year-old female who presents to the emergency department with a chief complaint of vaginal bleeding. Patient con cerned with intermittent heavy vaginal bleeding for the past week. States today she has been spotting but yesterday she soaked 5 pads with clots which is unusual for her. She reports intermittent right pelvic pain with radiation to the right side. It is associated with nausea and vomiting, especially at night. Denies fever, chills, chest pain, shortness of breath, lightheadedness, dizziness, burning with urination, vaginal discharge. No concern for sexually transmitted infections. Took an at home test which was negative. Her last menstrual period was at the end of September. States her menstrual cycle is typically 28 days-menstrual period lasts about 1 week with moderate to heavy flow. (Estrella Giles) On my evaluation of the patient, she provided additional history in that she did just change control medications 1.5 months ago. Currently denying any nausea or vomiting, because it does occur primarily at night. She does believe that her symptoms are overall improving. Notes a history of ovarian cysts. (Ayesha Rodriges) - Related Data Previous Rx's Medication Instructions Recorded Ondansetron Odt [Zofran Odt] 4 mg PO Q8HR PRN #15 tab 10/15/22 Allergies Allergy/AdvReac Type Severity Reaction Status Date / Time No Known Allergies Allergy Verified 10/15/22 18:01 Review of Systems ROS Other: All systems not noted in ROS Statement are negative. <Estrella Giles - Last Filed: 10/15/22 16:39> ROS Other: All systems not noted in ROS Statement are negative. <Ayesha Rodriges - Last Filed: 10/18/22 10:24> ROS Statement: Those systems with pertinent positive or pertinent negative responses have been documented in the HPI. Past Medical History Past Medical History: No Reported History Additional Past Medical History / Comment(s): ovarian cyst History of Any Multi-Drug Resistant Organisms: None Reported Past Surgical History: No Surgical Hx Reported Past Psychological History: No Psychological Hx Reported Smoking Status: Vaper Past Alcohol Use History: None Reported Past Drug Use History: None Reported <TishaEstrella - Last Filed: 10/15/22 16:39> General Exam Limitations: no limitations <Estrella Giles - Last Filed: 10/15/22 16:39> Limitations: no limitations General appearance: alert, in no apparent distress Head exam: Present: atraumatic, normocephalic, normal inspection Respiratory exam: Present: normal lung sounds bilaterally. Absent: respiratory distress, wheezes, rales, rhonchi, stridor Cardiovascular Exam: Present: regular rate, normal rhythm, normal heart sounds. Absent: systolic murmur, diastolic murmur, rubs, gallop, clicks GI/Abdominal exam: Present: soft, tenderness (Right lower quadrant), normal bowel sounds. Absent: distended Neurological exam: Present: alert, oriented X3, CN II-XII intact Psychiatric exam: Present: normal affect, normal mood Skin exam: Present: warm, dry, intact, normal color. Absent: rash <Ayesha Rodriges - Last Filed: 10/18/22 10:24> Course Vital Signs 10/15/22 10/15/22 16:11 18:56 Temperature 97.7 F Pulse Rate 95 68 Respiratory 16 15 Rate Blood Pressure 160/100 124/79 O2 Sat by Pulse 100 99 Oximetry Medical Decision Making - Lab Data Result diagrams: 10/15/22 17:08 10/15/22 17:08 - Radiology Data Radiology results: report reviewed, image reviewed <Ayesha Rodriges - Last Filed: 10/18/22 10:24> - Medical Decision Making This is a 22-year-old female who presents to the emergency department for vaginal bleeding. Was pt. sent in by a medical professional or institution? @ -No Did you speak to anyone other than the patient for history? @ -No Did you review nursing and triage notes? @ -Agree, accurate with regards to the patient's symptoms. Were old charts reviewed? @ -No Differential Diagnosis? @ -Differential Vaginal Bleeding: Spontaneous , threatened , molar , ectopic , bloody show, incompetent cervix, abruptioplacenta, placenta previa, uterine rupture, dysfunctional uterine bleeding, hemorrhage, uterine fibroid s, this is not meant to be an all-inclusive list. What meds were considered but not given? Why? @ -I offered nausea medication, however the patient declined. Did you discuss the management of the patient with other professionals? @ -No Did you reconcile home meds? @ -No Was smoking cessation discussed for >3mins.? @ -No Was critical care preformed (if so, how long)? @ -No Were there social determinants of health that impacted care today? How? (Homelessness, low income, unemployed, alcoholism, drug addiction, transportation, low edu. Level, literacy, decrease access to med. care, group home, rehab)? @ -No Was there de-escalation of care discussed even if they declined? (Discuss DNR or withdrawal of care, Hospice)? @ -No What co-morbidities impacted this encounter? (DM, HTN, Smoking, COPD, CAD, Cancer, CVA, Hep., AIDS, mental health diagnosis, sleep apnea, morbid obesity)? @ -Obesity, ovarian cysts. Was patient admitted / discharged? @ -Discharged. Lab work obtained and found to be nonactionable. Pelvic ultrasound obtained as well, revealing no acute irregularities to account for the patient's symptoms. She was given IV Toradol, which she states was not as effective as ibuprofen. Advised that symptoms may be related to her recently changing her control. She has always been on oral contraceptive pills. Prescription for Zofran provided with dosing instructions reviewed. Instructed her to alternate with ibuprofen and Tylenol as needed for pain relief and to use a heating pad as well. She is advised to follow-up with the control clinic regarding the change in medication. Drug Therapy requiring intensive monitoring for toxicity (Heparin, Nitro, Insulin, Cardizem)? @ -None Were any procedures done? @ -None Diagnosis/symptom? @ -Vaginal bleeding Acute, or Chronic, or Acute on Chronic? @ -Acute Uncomplicated (without systemic symptoms) or Complicated (systemic symptoms)? @ -Uncomplicated Side effects of treatment? @ -None Exacerbation, Progression, or Severe Exacerbation] @ -Not applicable Poses a threat to life or bodily function? @ -No Return precautions reviewed in depth, the patient is instructed to return to the emergency department with any new, worsening, or concerning symptoms. Patient verbalized understanding. This case was discussed in detail with the attending ED physician. Presentation, findings, and treatment plan discussed in detail as well. (Ayesha Rodriges) - Lab Data Lab Results 10/15/22 10/15/22 10/15/22 Range/Units 17:00 17:00 17:08 WBC 8.9 (3.8-10.6) k/uL RBC 5.10 (3.80-5.40) m/uL Hgb 14.0 (11.4-16.0) gm/dL Hct 41.9 (34.0-46.0) % MCV 82.2 (80.0-100.0) fL MCH 27.6 (25.0-35.0) pg MCHC 33.5 (31.0-37.0) g/dL RDW 14.6 (11.5-15.5) % Plt Count 300 (150-450) k/uL MPV 8.4 Neutrophils % 68 % Lymphocytes % 24 % Monocytes % 5 % Eosinophils % 1 % Basophils % 1 % Neutrophils # 6.1 (1.3-7.7) k/uL Lymphocytes # 2.1 (1.0-4.8) k/uL Monocytes # 0.4 (0-1.0) k/uL Eosinophils # 0.1 (0-0.7) k/uL Basophils # 0.1 (0-0.2) k/uL PT (9.0-12.0) sec INR (<1.2) APTT (22.0-30.0) sec Sodium (137-145) mmol/L Potassium (3.5-5.1) mmol/L Chloride (98-107) mmol/L Carbon Dioxide (22-30) mmol/L Anion Gap mmol/L BUN (7-17) mg/dL Creatinine (0.52-1.04) mg/dL Est GFR (CKD-EPI)AfAm (>60 ml/min/1.73 sqM) Est GFR (CKD-EPI)NonAf (>60 ml/min/1.73 sqM) Glucose (74-99) mg/dL Calcium (8.4-10.2) mg/dL Total Bilirubin (0.2-1.3) mg/dL AST (14-36) U/L ALT (4-34) U/L Alkaline Phosphatase (38-126) U/L Total Protein (6.3-8.2) g/dL Albumin (3.5-5.0) g/dL Lipase (23-300) U/L Urine Color Light Yellow Urine Appearance Clear (Clear) Urine pH 7.0 (5.0-8.0) Ur Specific [place] 1.008 (1.001-1.035) Urine Protein Negative (Negative) Urine Glucose (UA) Negative (Negative) Urine Ketones Negative (Negative) Urine Blood Negative (Negative) Urine Nitrite Negative (Negative) Urine Bilirubin Negative (Negative) Urine Urobilinogen <2.0 (<2.0) mg/dL Ur Leukocyte Esterase Trace H (Negative) Urine RBC <1 (0-5) /hpf Urine WBC 3 (0-5) /hpf Ur Squamous Epith Cells 2 (0-4) /hpf Urine Bacteria Rare H (None) /hpf Hyaline Casts 1 (0-2) /lpf Urine HCG, Qual Not Detected (Not Detectd) Blood Type Blood Type Recheck Bld Type Recheck Status Antibody Screen Spec Expiration Date 10/15/22 10/15/22 10/15/22 Range/Units 17:08 17:08 17:08 WBC (3.8-10.6) k/uL RBC (3.80-5.40) m/uL Hgb (11.4-16.0) gm/dL Hct (34.0-46.0) % MCV (80.0-100.0) fL MCH (25.0-35.0) pg MCHC (31.0-37.0) g/dL RDW (11.5-15.5) % Plt Count (150-450) k/uL MPV Neutrophils % % Lymphocytes % % Monocytes % % Eosinophils % % Basophils % % Neutrophils # (1.3-7.7) k/uL Lymphocytes # (1.0-4.8) k/uL Monocytes # (0-1.0) k/uL Eosinophils # (0-0.7) k/uL Basophils # (0-0.2) k/uL PT 10.2 (9.0-12.0) sec INR 1.0 (<1.2) APTT 24.7 (22.0-30.0) sec Sodium 138 (137-145) mmol/L Potassium 4.1 (3.5-5.1) mmol/L Chloride 105 (98-107) mmol/L Carbon Dioxide 27 (22-30) mmol/L Anion Gap 6 mmol/L BUN 6 L (7-17) mg/dL Creatinine 0.56 (0.52-1.04) mg/dL Est GFR (CKD-EPI)AfAm >90 (>60 ml/min/1.73 sqM) Est GFR (CKD-EPI)NonAf >90 (>60 ml/min/1.73 sqM) Glucose 109 H (74-99) mg/dL Calcium 8.3 L (8.4-10.2) mg/dL Total Bilirubin 0.3 (0.2-1.3) mg/dL AST 25 (14-36) U/L ALT 19 (4-34) U/L Alkaline Phosphatase 77 (38-126) U/L Total Protein 7.2 (6.3-8.2) g/dL Albumin 4.1 (3.5-5.0) g/dL Lipase 64 (23-300) U/L Urine Color Urine Appearance (Clear) Urine pH (5.0-8.0) Ur Specific [place] (1.001-1.035) Urine Protein (Negative) Urine Glucose (UA) (Negative) Urine Ketones (Negative) Urine Blood (Negative) Urine Nitrite (Negative) Urine Bilirubin (Negative) Urine Urobilinogen (<2.0) mg/dL Ur Leukocyte Esterase (Negative) Urine RBC (0-5) /hpf Urine WBC (0-5) /hpf Ur Squamous Epith Cells (0-4) /hpf Urine Bacteria (None) /hpf Hyaline Casts (0-2) /lpf Urine HCG, Qual (Not Detectd) Blood Type A Positive Blood Type Recheck A Pos Bld Type Recheck Status No Antibody Screen NEGATIVE Spec Expiration Date 10/18/2022 - 2307 Disposition <Estrella Giles - Last Filed: 10/15/22 16:39> Is patient prescribed a controlled substance at d/c from ED?: No <Ayesha Rodriges - Last Filed: 10/18/22 10:24> Clinical Impression: Dysfunctional uterine bleeding Disposition: HOME SELF-CARE Instructions (If sedation given, give patient instructions): Abnormal (Dysfunctional) Uterine Bleeding (ED) Additional Instructions: Return to the emergency department with any new, worsening, or concerning symptoms. Alternate with ibuprofen and Tylenol as needed for pain relief. You can take the nausea medicine up to every 8 hours as needed for nausea and vomiting. You can try using a heating pad as well. Follow up with the control clinic to discuss if any medication changes are needed. Follow up with your primary care provider in 1-2 days. Prescriptions: Ondansetron Odt [Zofran Odt] 4 mg PO Q8HR PRN #15 tab PRN Reason: Nausea And Vomiting Referrals: Johnny Garcia MD [Primary Care Provider] - 1-2 days
[2022-10-15] MEDS ORDERED: KETOROLAC 15 MG/ML 1 ML VIAL IVP STA (17:10)
[2022-10-15 17:50] LABS: Basophils # (A) 0.1 k/uL (0-0.2); Basophils % (A) 1 %; Eosinophils # (A) 0.1 k/uL (0-0.7); Eosinophils % (A) 1 %; HCT 41.9 % (34.0-46.0); Lymphocytes # (A) 2.1 k/uL (1.0-4.8); Lymphocytes % (A) 24 %; MCH 27.6 pg (25.0-35.0); MCHC 33.5 g/dL (31.0-37.0); MCV 82.2 fL (80.0-100.0); Mean Platelet Volume 8.4; Monocytes # (A) 0.4 k/uL (0-1.0); Monocytes % (A) 5 %; Neutrophils # (A) 6.1 k/uL (1.3-7.7); Neutrophils % (A) 68 %; Platelet Count 300 k/uL (150-450); RDW 14.6 % (11.5-15.5); WBC 8.9 k/uL (3.8-10.6)
[2022-10-15 17:55] LABS: Appearance,Urine Clear (Clear); Bacteria,Urine Rare /hpf; Bilirubin,Urine Negative (Negative); Blood,Urine Negative (Negative); Color,Urine Light Yellow; Glucose,Urine (UA) Negative (Negative); Hyaline Casts,Urine 1 /lpf (0-2); Ketones,Urine Negative (Negative); Leukocyte Esterase,Urine Trace (Negative); Nitrite,Urine Negative (Negative); Protein,Urine Negative (Negative); RBC,Urine <1 /hpf (0-5); Specific Gravity,Urine 1.008 (1.001-1.035); Squamous Epithelial Cell,Urine 2 /hpf (0-4); Urobilinogen,Urine <2.0 mg/dL (<2.0); WBC,Urine 3 /hpf (0-5)
[2022-10-15 18:01] LABS: Partial Thromboplastin Time 24.7 sec (22.0-30.0); Prothrombin Time 10.2 sec (9.0-12.0)
[2022-10-15 18:08] LABS: ALT 19 U/L (4-34); AST 25 U/L (14-36); African American GFR (CKD) >90 (>60 ml/min/1.73 sqM); Albumin 4.1 g/dL (3.5-5.0); Alkaline Phosphatase 77 U/L (38-126); Anion Gap 6 mmol/L; Blood Urea Nitrogen 6 mg/dL (7-17); Calcium 8.3 mg/dL (8.4-10.2); Carbon Dioxide 27 mmol/L (22-30); Chloride 105 mmol/L (98-107); Glucose 109 mg/dL (74-99); Lipase 64 U/L (23-300); Non-African American GFR(CKD) >90 (>60 ml/min/1.73 sqM); Potassium 4.1 mmol/L (3.5-5.1); Sodium 138 mmol/L (137-145); Total Bilirubin 0.3 mg/dL (0.2-1.3); Total Protein 7.2 g/dL (6.3-8.2)
--- NOTE | 2022-10-15 18:22 | US ---
EXAMINATION TYPE: US pelvis complete transvag DATE OF EXAM: 10/15/2022 COMPARISON: 05/09/22 CLINICAL HISTORY: vaginal bleeding, right pelvic/side pain. vaginal bleeding x 4 days TECHNIQUE: . Transabdominal sonographic images of the pelvis were acquired. Transvaginal sonographi c images were medically necessary to better assess the following anatomy: ovaries Date of LMP: 09/28/22 EXAM MEASUREMENTS: Uterus: 7.5 x 4.9 x 4.1 cm Endometrial Stripe: 0.7 cm Right Ovary: 2.2 x 1.7 x 1.2 cm Left Ovary: 2.0 x 1.4 x 1.5 cm 1. Uterus: Retroverted wnl 2. Endometrium: wnl 3. Right Ovary: wnl 4. Left Ovary: wnl Spectral, color and waveform doppler imaging shows good arterial and venous flow within the ovaries ; there is no evidence for ovarian torsion. 5. Bilateral Adnexa: wnl 6. Posterior cul-de-sac: wnl IMPRESSION: Normal uterus and endometrium. No adnexal mass. No evidence of ovarian torsion. No free fluid.
[2022-10-15] MEDS ORDERED: SODIUM CHLORIDE 0.9% 1,000 ML IV STA (18:45)
[2022-10-15 18:57] VITALS: BP 124/79; PULSE 68; RESP 15
[2022-10-15] MEDS ORDERED: ACET/COD 300 MG/30 MG STARTER PACK 6 TAB BTL PO STA (19:27)
== END 2022-10-15 20:00 | disposition home or self-care (01) ==
LOC: EC 15:45 → SUPCPDRO 15:45 → EC 20:00
DX: N93.8 Other specified abnormal uterine and vaginal bleeding (principal); F17.290 Nicotine dependence, other tobacco product, uncomplicated
CPT/HCPCS: 36415; 86900; 86901; 80053; 83690; 85025; 85610; 85730; 86850; 81001; 81025; 93975; 76856; 76830; 99284; 96374; 96361; J1885

== ENCOUNTER 2023-02-08 15:26 | Emergency (ER) | payer OTHER ==
[2023-02-08 15:46] VITALS: PULSE 87; RESP 18
--- NOTE | 2023-02-08 17:18 | ED ---
Female Urogenital HPI - General Chief complaint: Vaginal Bleeding Stated complaint: L side pain and vaginal bleeding Time Seen by Provider: 02/08/23 16:12 Source: patient, RN notes reviewed Mode of arrival: ambulatory Limitations: no limitations - History of Present Illness Initial comments: Patient is a 22-year-old female presenting to the emergency room with complaints of spotting and vaginal bleeding ongoing for approximately 4 days. She reports taking 3 tests approximately 4 weeks ago and notes 2 of them were negative and one of them were positive. She states that because 1 of them was -5 days ago she began taking her oral contraceptive again. She reports some pelvic cramping radiating to her back along with some nausea. She reports that she typically does not have any pelvic cramping with her menstrual cycles. She denies any vomiting. She denies any dysuria, hematuria, urinary frequency, fevers or chills. She has had one previous which resulted in a miscarriage. Her only significant past medical history is for ovarian cysts. - Related Data Previous Rx's Medication Instructions Recorded Ondansetron Odt [Zofran Odt] 4 mg PO Q8HR PRN #15 tab 10/15/22 Allergies Allergy/AdvReac Type Severity Reaction Status Date / Time No Known Allergies Allergy Verified 02/08/23 15:39 Review of Systems ROS Statement: Those systems with pertinent positive or pertinent negative responses have been documented in the HPI. ROS Other: All systems not noted in ROS Statement are negative. Past Medical History Additional Past Medical History / Comment(s): ovarian cyst History of Any Multi-Drug Resistant Organisms: None Reported Past Surgical History: No Surgical Hx Reported Past Psychological History: No Psychological Hx Reported Smoking Status: Vaper Past Alcohol Use History: None Reported Past Drug Use History: None Reported General Exam - General Exam Comments Initial Comments: GENERAL: No acute distress, well developed, well nourished. HEENT: Normocephalic, atraumatic. Pupils equal, round, reactive to light. Moist mucous membranes. LUNGS: No respiratory distress. Clear to auscultation, no adventitious sounds, no use of accessory muscles. HEART: Regular rate and rhythm without murmur, rub, or gallop. ABDOMEN: Normal bowel sounds. Soft, non-tender, non-distended. BACK: Normal inspection. EXTREMITIES: No edema. No tenderness. Moves all extremities. NEUROLOGIC: Alert & oriented x 3. CN II-XII grossly intact. PSYCHIATRIC: Normal affect and behavior. DERMATOLOGIC: Skin intact, without rashes or lesions noted. Limitations: no limitations Course Vital Signs 02/08/23 15:41 Temperature 98.3 F Pulse Rate 87 Respiratory 18 Rate Blood Pressure 140/83 O2 Sat by Pulse 99 Oximetry Medical Decision Making - Medical Decision Making Was pt. sent in by a medical professional or institution (, [place], [facility], urgent care, hospital, or long-term...) When possible be specific @ -No Did you speak to anyone other than the patient for history (EMS, parent, family, police, friend...)? What history was obtained from this source @ -No Did you review nursing and triage notes (agree or disagree)? Why? @ -I reviewed and agree with nursing and triage notes Were old charts reviewed (outside hosp., previous admission, EMS record, old EKG, old radiological studies, urgent care reports/EKG's, long-term records)? Report findings @ -No old charts were reviewed Differential Diagnosis (chest pain, altered mental status, abdominal pain women, abdominal pain men, vaginal bleeding, weakness, fever, dyspnea, syncope, headache, dizziness, GI bleed, back pain, seizure, CVA, palpatations, mental health, musculoskeletal)? @ -Differential Vaginal Bleeding: Spontaneous , threatened , molar , ectopic , bloody show, incompetent cervix, abruptioplacenta, placenta previa, uterine rupture, dysfunctional uterine bleeding, hemorrhage, uterine fibroids, this is not meant to be an all-inclusive list. EKG interpreted by me (3pts min.). @ -None done X-rays interpreted by me (1pt min.). @ -None done CT interpreted by me (1pt min.). @ -None done U/S (1pt. min.). @ -Ultrasound OB not interpreted by me. Report per radiologist no evidence of intrauterine . What testing was considered but not performed or refused? (CT, X-rays, U/S, labs)? Why? @ -None What meds were considered but not given or refused? Why? @ -None Did you discuss the management of the patient with other professionals (professionals i.e. , [facility], [facility], lab, RT, psych nurse, director social welfare, machine tool mechanic, teacher, complaint investigations officer, therapeutic case manager)? Give summary @ -No Was smoking cessation discussed for >3mins.? @ -No Was critical care preformed (if so, how long)? @ -No Were there social determinants of health that impacted care today? How? (Homelessness, low income, unemployed, alcoholism, drug addiction, transportation, low edu. Level, literacy, decrease access to med. care, prison, rehab)? @ -No Was there de-escalation of care discussed even if they declined (Discuss DNR or withdrawal of care, Hospice)? DNR status @ -No What co-morbidities impacted this encounter? (DM, HTN, Smoking, COPD, CAD, Cancer, CVA, ARF, Chemo, Hep., AIDS, mental health diagnosis, sleep apnea, morbid obesity)? @ -None Was patient admitted / discharged? Hospital course, mention meds given and route , prescriptions, significant lab abnormalities, going to OR and other pertinent info. @ -22-year-old female presenting to the emergency room with reports of vaginal spotting ongoing for the last 3-4 days after a positive test to 4 weeks ago at the same time she also had 2 negative tests. She reports restarting her oral contraceptive accidentally one week ago. Will begin workup for threatened in the setting of positive test 4 weeks ago. Will obtain CBC, quantitative hCG, AB O Rh typing, urinalysis and OB ultrasound. OB ultrasound negative for intrauterine . Quantitative hCG level less than 2.4. CBC normal. Urinalysis without any significant abnormalities. No evidence of infection. No indication for further workup at this time. Findings discussed with patient. Advised continuation of oral contraceptive. Advised avoiding missing of oral contraceptive or irregular use of oral contraceptive as it may worsen irregular spotting. Encouraged follow-up with primary care provider and or TRANSFORMATION [facility]. Will discharge home in stable condition with monitoring of vaginal bleeding advising follow-up with primary care provider and continuation of oral contraceptive. Undiagnosed new problem with uncertain prognosis? @ -No Drug Therapy requiring intensive monitoring for toxicity (Heparin, Nitro, Insulin, Cardizem)? @ -No Were any procedures done? @ -No Diagnosis/symptom? @ -Vaginal bleeding Acute, or Chronic, or Acute on Chronic? @ -Acute Uncomplicated (without systemic symptoms) or Complicated (systemic symptoms)? @ -Uncomplicated Side effects of treatment? @ -No Exacerbation, Progression, or Severe Exacerbation? @ -No Poses a threat to life or bodily function? How? (Chest pain, [place], [place], pneumonia, PE, COPD, DKA, ARF, appy, cholecystitis, CVA, Diverticulitis, Homicidal, Suicidal, threat to staff... and all critical care pts) @ -No Case discussed with Dr. Mary. - Lab Data Result diagrams: 02/08/23 16: Lab Results 02/08/23 02/08/23 02/08/23 Range/Units 16:28 16:28 16:28 WBC 10.0 (3.8-10.6) k/uL RBC 5.21 (3.80-5.40) m/uL Hgb 14.0 (11.4-16.0) gm/dL Hct 44.1 (34.0-46.0) % MCV 84.8 (80.0-100.0) fL MCH 26.8 (25.0-35.0) pg MCHC 31.6 (31.0-37.0) g/dL RDW 14.0 (11.5-15.5) % Plt Count 312 (150-450) k/uL MPV 8.0 Neutrophils % 64 % Lymphocytes % 27 % Monocytes % 5 % Eosinophils % 2 % Basophils % 1 % Neutrophils # 6.4 (1.3-7.7) k/uL Lymphocytes # 2.7 (1.0-4.8) k/uL Monocytes # 0.5 (0-1.0) k/uL Eosinophils # 0.2 (0-0.7) k/uL Basophils # 0.1 (0-0.2) k/uL HCG, Quant <2.4 mIU/mL Urine Color Yellow Urine Appearance Cloudy H (Clear) Urine pH 5.5 (5.0-8.0) Ur Specific [place] 1.037 H (1.001-1.035) Urine Protein 1+ H (Negative) Urine Glucose (UA) Negative (Negative) Urine Ketones Negative (Negative) Urine Blood Negative (Negative) Urine Nitrite Negative (Negative) Urine Bilirubin Negative (Negative) Urine Urobilinogen <2.0 (<2.0) mg/dL Ur Leukocyte Esterase Negative (Negative) Urine WBC 1 (0-5) /hpf Ur Squamous Epith Cells 4 (0-4) /hpf Calcium Oxalate Crystal Occasional H (None) /hpf Urine Bacteria Rare H (None) /hpf Urine Mucus Many H (None) /hpf - Radiology Data Radiology results: report reviewed, image reviewed Disposition Clinical Impression: Vaginal bleeding Disposition: HOME SELF-CARE Condition: Stable Instructions (If sedation given, give patient instructions): Dysmenorrhea (ED), Oral Contraceptives (By mouth) Additional Instructions: Continue your oral contraceptive as prescribed by her primary care provider. Do not stop or skip doses of oral contraceptive. Please follow-up with your primary care provider. Please return to the Emergency Department if symptoms worsen or any other concerns. Is patient prescribed a controlled substance at d/c from ED?: No Referrals: Johnny Garcia MD [Primary Care Provider] - 1-2 days Time of Disposition: 18:23
[2023-02-08 17:33] LABS: Basophils # (A) 0.1 k/uL (0-0.2); Basophils % (A) 1 %; Eosinophils # (A) 0.2 k/uL (0-0.7); Eosinophils % (A) 2 %; HCT 44.1 % (34.0-46.0); Lymphocytes # (A) 2.7 k/uL (1.0-4.8); Lymphocytes % (A) 27 %; MCH 26.8 pg (25.0-35.0); MCHC 31.6 g/dL (31.0-37.0); MCV 84.8 fL (80.0-100.0); Monocytes # (A) 0.5 k/uL (0-1.0); Monocytes % (A) 5 %; Neutrophils # (A) 6.4 k/uL (1.3-7.7); Neutrophils % (A) 64 %; Platelet Count 312 k/uL (150-450); RBC 5.21 m/uL (3.80-5.40)
[2023-02-08 17:43] LABS: Appearance,Urine Cloudy (Clear); Bacteria,Urine Rare /hpf; Bilirubin,Urine Negative (Negative); Blood,Urine Negative (Negative); Calcium Oxalate Crystals,Urine Occasional /hpf; Color,Urine Yellow; Glucose,Urine (UA) Negative (Negative); Ketones,Urine Negative (Negative); Leukocyte Esterase,Urine Negative (Negative); Mucus,Urine Many /hpf; Nitrite,Urine Negative (Negative); PH, Urine 5.5 (5.0-8.0); Protein,Urine 1+ (Negative); Specific Gravity,Urine 1.037 (1.001-1.035); Squamous Epithelial Cell,Urine 4 /hpf (0-4); Urobilinogen,Urine <2.0 mg/dL (<2.0); WBC,Urine 1 /hpf (0-5)
--- NOTE | 2023-02-08 18:02 | US ---
EXAMINATION TYPE: Transabdominal DATE OF EXAM: 02/08/2023 5:52 PM COMPARISON: Ultrasound 10/15/2022 CLINICAL INDICATION: Female, 22 years old with history of vaginal bleeding; Spotting and left pelvic pain x couple weeks EXAM PERFORMED: Transvaginal (TV) and Transabdominal (TA) EXAM MEASUREMENTS: GESTATIONAL AGE / DATING Physician Established: Not yet established Dates by LMP: LMP unknown Dates by First Scan: No previous this is first scan Dates by Current Scan for: No IUP seen at this time MATERNAL ANATOMY Uterus: 6.3 x 3.7 x 4.5cm, retroverted Right Ovary: not seen Left Ovary: wnl Post CDS / Adnexa: wnl Presence of free fluid: no Presence of corpus luteal cyst: no Presence of subchorionic bleed: no GESTATION / SURVEY IUP: No IUP seen at this time Date of LMP: Unknown Beta HcG (if available): Not available at time of exam Retroverted with normal endometrium. No pole, gestational sac, yolk sac identified. IMPRESSION: No evidence of intrauterine gestational sac. This can be seen in early , ectopic a nd spontaneous if there is a positive beta hCG. Follow up pelvic ultrasound in 5-7 days and serial beta hCG studies are recommended.
[2023-02-08 18:41] VITALS: BP 133/87; TEMP 97.6
== END 2023-02-08 18:41 | disposition home or self-care (01) ==
LOC: EC 15:26
DX: N93.9 Abnormal uterine and vaginal bleeding, unspecified (principal); F17.290 Nicotine dependence, other tobacco product, uncomplicated
CPT/HCPCS: 36415; 76801; 76817; 81001; 84702; 85025; 86900; 86901; 99284

== ENCOUNTER 2023-02-14 10:52 | Emergency (ER) | payer OTHER ==
[2023-02-14 11:09] VITALS: RESP 18
[2023-02-14] MEDS ORDERED: ONDANSETRON ODT 4 MG TAB PO STA (11:31)
--- NOTE | 2023-02-14 12:26 | ED ---
ENT HPI - General Chief complaint: ENT Stated complaint: NVD Time Seen by Provider: 02/14/23 11:21 Source: patient, RN notes reviewed Mode of arrival: ambulatory Limitations: no limitations - History of Present Illness Initial comments: This is a 22-year-old female who presents to the emergency department for coughing, congestion, a sore throat, and nausea. States that the symptoms started 1-2 days ago. She has been unable to keep anything down due to the nausea. Believes that the nausea is not related to nasal drainage. Denies any fevers or sick contacts. Denies any dyspnea, chest pain, palpitations, abdominal pain, diarrhea, or back pain. Onset/Timin -: days(s) - Related Data Previous Rx's Medication Instructions Recorded Ondansetron Odt [Zofran Odt] 4 mg PO Q8HR PRN #15 tab 10/15/22 Ondansetron Odt [Zofran Odt] 4 mg PO Q8HR PRN #15 tab 02/14/23 Allergies Allergy/AdvReac Type Severity Reaction Status Date / Time No Known Allergies Allergy Verified 02/14/23 11:08 Review of Systems ROS Statement: Those systems with pertinent positive or pertinent negative responses have been documented in the HPI. ROS Other: All systems not noted in ROS Statement are negative. Past Medical History Past Medical History: No Reported History Additional Past Medical History / Comment(s): ovarian cyst History of Any Multi-Drug Resistant Organisms: None Reported Past Surgical History: No Surgical Hx Reported Past Psychological History: No Psychological Hx Reported Smoking Status: Vaper Past Alcohol Use History: None Reported Past Drug Use History: None Reported General Exam General appearance: alert, in no apparent distress Head exam: Present: atraumatic, normocephalic, normal inspection ENT exam: Present: normal exam, mucous membranes moist, TM's normal bilaterally, normal external ear exam Respiratory exam: Present: normal lung sounds bilaterally. Absent: respiratory distress, wheezes, rales, rhonchi, stridor Cardiovascular Exam: Present: regular rate, normal rhythm, normal heart sounds. Absent: systolic murmur, diastolic murmur, rubs, gallop, clicks Neurological exam: Present: alert, oriented X3, CN II-XII intact Psychiatric exam: Present: normal affect, normal mood Skin exam: Present: warm, dry, intact, normal color. Absent: rash Course Vital Signs 02/14/23 02/14/23 02/14/23 11:06 11:55 12:47 Temperature 98.1 F 98.3 F Pulse Rate 74 78 67 Respiratory 18 18 18 Rate Blood Pressure 130/90 126/79 123/88 O2 Sat by Pulse 100 97 100 Oximetry Medical Decision Making - Medical Decision Making This is a 22-year-old female who presents to the emergency department for coughing, congestion, a sore throat, nausea, and vomiting. Was pt. sent in by a medical professional or institution? @ -No Did you speak to anyone other than the patient for history? @ -No Did you review nursing and triage notes? @ -Yes, and I agree, it is accurate with regards to the patient's symptoms. Were old charts reviewed? @ -No Differential Diagnosis? @ -Differential Cough: Influenza, Covid, RSV, croup, allergic rhinitis, GERD, pneumonia, bronchitis, COPD, viral pharyngitis, streptococcal pharyngitis, this is not meant to be an all-inclusive list. -Differential Nausea and Vomiting: Gastroenteritis, cholecystitis, appendicitis, pancreatitis, migraine, benign positional vertigo, food borne illness, pyelonephritis, irritable bowel syndrome, influenza, Covid, GERD, incarcerated hernia, intestinal obstruction, this is not meant to be an all-inclusive list. What testing was considered but not performed? (CT, X-rays, U/S, labs)? Why? @ -None What meds were considered but not given? Why? @ -None Did you discuss the management of the patient with other professionals? @ -No Did you reconcile home meds? @ -No Was smoking cessation discussed for >3mins.? @ -No Was critical care preformed (if so, how long)? @ -No Were there social determinants of health that impacted care today? How? (Homelessness, low income, unemployed, alcoholism, drug addiction, transportation, low edu. Level, literacy, decrease access to med. care, custodial, rehab)? @ -No Was there de-escalation of care discussed even if they declined? (Discuss DNR or withdrawal of care, Hospice)? @ -No What co-morbidities impacted this encounter? (DM, HTN, Smoking, COPD, CAD, Cancer, CVA, Hep., AIDS, mental health diagnosis, sleep apnea, morbid obesity)? @ -None Was patient admitted / discharged? @ -Discharged. Patient negative for Covid, influenza, and RSV. Rapid strep test negative as well. She was given Zofran, which resolved the nausea and she was able to drink water without difficulty. She was also given Toradol for her headache, which was also beneficial. Advised that this is most likely an upper respiratory infection with possible associated gastroenteritis. Prescription for Zofran provided with dosing instructions reviewed. She is advised to slowly advance her diet as tolerated and remain well-hydrated. She will otherwise also continue with supportive care for the upper respiratory symptoms. Undiagnosed new problem with uncertain prognosis? @ -None Drug Therapy requiring intensive monitoring for toxicity (Heparin, Nitro, Insulin, Cardizem)? @ -None Were any procedures done? @ -None Diagnosis/symptom? @ -URI, Nausea/Vomiting Acute, or Chronic, or Acute on Chronic? @ -Acute Uncomplicated (without systemic symptoms) or Complicated (systemic symptoms)? @ -Uncomplicated Side effects of treatment? @ -None Exacerbation, Progression, or Severe Exacerbation] @ -Not applicable Poses a threat to life or bodily function? @ -No Return precautions reviewed in depth, the patient is instructed to return to the emergency department with any new, worsening, or concerning symptoms. Patient verbalized understanding. This case was discussed in detail with the attending ED physician, Dr. Carrero. Presentation, findings, and treatment plan discussed in detail as well. - Lab Data Lab Results 02/14/23 02/14/23 Range/Units 11:46 11:46 Influenza Type A (PCR) Not Detected (Not Detectd) Influenza Type B (PCR) Not Detected (Not Detectd) RSV (PCR) Not Detected (Not Detectd) SARS-CoV-2 (PCR) Not Detected (Not Detectd) Group A Strep (PCR) NOT DETECTED (Not Detectd) Disposition Clinical Impression: Viral URI, Nausea and vomiting Disposition: HOME SELF-CARE Instructions (If sedation given, give patient instructions): Upper Respiratory Infection (ED), Acute Nausea and Vomiting (ED) Additional Instructions: Return to the emergency department with any new, worsening, or concerning symptoms. Alternate with ibuprofen and Tylenol as needed for pain relief. Take the Zofran up to every 8 hours as needed for nausea and vomiting. Make sure that you remain well-hydrated and slowly advance your diet as tolerated. Follow up with your primary care provider in 1-2 days. Prescriptions: Ondansetron Odt [Zofran Odt] 4 mg PO Q8HR PRN #15 tab PRN Reason: Nausea And Vomiting Is patient prescribed a controlled substance at d/c from ED?: No Referrals: Johnny Garcia MD [Primary Care Provider] - 1-2 days
[2023-02-14 12:48] VITALS: BP 123/88; PULSE 67; TEMP 98.3
[2023-02-14] MEDS ORDERED: ONDANSETRON 4 MG ODT STARTER PACK 2 TAB BTL PO STA (12:55)
[2023-02-14] MEDS ORDERED: KETOROLAC 15 MG/ML 1 ML VIAL IM STA (12:55)
== END 2023-02-14 13:22 | disposition home or self-care (01) ==
LOC: EC 10:52
DX: J06.9 Acute upper respiratory infection, unspecified (principal); R11.2 Nausea with vomiting, unspecified; F17.290 Nicotine dependence, other tobacco product, uncomplicated; Z20.822 Contact with and (suspected) exposure to COVID-19
CPT/HCPCS: 87651; 87636; 99283; 96372; J1885; S0119

== ENCOUNTER 2023-02-15 11:06 | Emergency (ER) | payer OTHER ==
[2023-02-15 11:15] VITALS: BP 123/81; PULSE 93; RESP 18; TEMP 98.1
--- NOTE | 2023-02-15 12:10 | ED ---
General Adult HPI - General Chief complaint: Eye Problems Stated complaint: [facility] - vision issues Time Seen by Provider: 02/15/23 11:29 Source: patient, RN notes reviewed Mode of arrival: ambulatory Limitations: no limitations - History of Present Illness Initial comments: 22-year-old female with no significant past medical history presents to the emergency department with a chief complaint of eye problem. 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 She was advised by her work to be evaluated for medical clearance. Patient is denying any symptoms at this time. She denies any headache, vision loss, vision changes, blurred vision, eye drainage, eye erythema, purulent discharge. She denies contact lens use. - Related Data Previous Rx's Medication Instructions Recorded Ondansetron Odt [Zofran Odt] 4 mg PO Q8HR PRN #15 tab 10/15/22 Ondansetron Odt [Zofran Odt] 4 mg PO Q8HR PRN #15 tab 02/14/23 Allergies Allergy/AdvReac Type Severity Reaction Status Date / Time No Known Allergies Allergy Verified 02/14/23 11:08 Review of Systems ROS Statement: Those systems with pertinent positive or pertinent negative responses have been documented in the HPI. ROS Other: All systems not noted in ROS Statement are negative. Past Medical History Past Medical History: No Reported History Additional Past Medical History / Comment(s): ovarian cyst History of Any Multi-Drug Resistant Organisms: None Reported Past Surgical History: No Surgical Hx Reported Past Psychological History: No Psychological Hx Reported Smoking Status: Vaper Past Alcohol Use History: None Reported Past Drug Use History: None Reported General Exam - General Exam Comments Initial Comments: General: Alert, in no acute distress Head: atraumatic normocephalic. Eyes PERRL, EOMI intact, mucous membranes moist Respiratory: Lungs clear to auscultation bilaterally Cardiovascular: Heart rate regular rate and rhythm Abdominal: Soft without guarding or rebound Extremities: Normal inspection with full range of motion and normal capillary refill Neuroogic: alert and oriented 3, CN II-XII intact, able to ambulate with steady gait Skin: warm dry and intact with normal color Visual acuity is 20/25 bilaterally Limitations: no limitations Course Vital Signs 02/15/23 11:13 Temperature 98.1 F Pulse Rate 93 Respiratory 18 Rate Blood Pressure 123/81 O2 Sat by Pulse 99 Oximetry Medical Decision Making - Medical Decision Making Was pt. sent in by a medical professional or institution (RIMMA Castillo, DIET SUPERVISOR, urgent care, hospital, or retirement...) When possible be specific @ -[No] Did you speak to anyone other than the patient for history (EMS, parent, family, police, friend...)? What history was obtained from this source @ -[No] Did you review nursing and triage notes (agree or disagree)? Why? @ -[I reviewed and agree with nursing and triage notes] Were old charts reviewed (outside hosp., previous admission, EMS record, old EKG, old radiological studies, urgent care reports/EKG's, retirement records)? Report findings @ -[No old charts were reviewed] Differential Diagnosis (chest pain, altered mental status, abdominal pain women, abdominal pain men, vaginal bleeding, weakness, fever, dyspnea, syncope, headache, dizziness, GI bleed, back pain, seizure, CVA, palpatations, mental health, musculoskeletal)? @ -[not applicable] EKG interpreted by me (3pts min.). @ -[As above] X-rays interpreted by me (1pt min.). @ -[None done] CT interpreted by me (1pt min.). @ -[None done] U/S interpreted by me (1pt. min.). @ -[None done] What testing was considered but not performed or refused? (CT, X-rays, U/S, labs)? Why? @ -[None] What meds were considered but not given or refused? Why? @ -[None] Did you discuss the management of the patient with other professionals (professionals i.e. RIMMA Castillo, DIET SUPERVISOR, lab, RT, psych nurse, social work program coordinator, wedding consultant, teacher, restoration officer, spring encaser)? Give summary @ -[No] Was smoking cessation discussed for >3mins.? @ -[No] Was critical care preformed (if so, how long)? @ -[No] Were there social determinants of health that impacted care today? How? (Homelessness, low income, unemployed, alcoholism, drug addiction, transportation, low edu. Level, literacy, decrease access to med. care, residential, rehab)? @ -[No] Was there de-escalation of care discussed even if they declined (Discuss DNR or withdrawal of care, Hospice)? DNR status @ -[No] What co-morbidities impacted this encounter? (DM, HTN, Smoking, COPD, CAD, Cancer, CVA, ARF, Chemo, Hep., AIDS, mental health diagnosis, sleep apnea, morbid obesity)? @ -[None] Was patient admitted / discharged? Hospital course, mention meds given and route, prescriptions, significant lab abnormalities, going to OR and other pertinent info. @ -Discharged. This is a 22-year-old female presents the emergency department with eye problem. Patient had a thorough history and physical exam performed while in the ED. Physical exam is essentially unremarkable. Heart rate regular rate and rhythm, lung sounds clear to auscultation bilaterally abdomen is soft and nontender. I discussed the results in detail with the patient verbalized understanding. Return precautions were discussed at length. Discharged in stable condition. Case discussed with DEVAUGHN Cervantes who agrees with plan of care Undiagnosed new problem with uncertain prognosis? @ -[No] Drug Therapy requiring intensive monitoring for toxicity (Heparin, Nitro, Insulin, Cardizem)? @ -[No] Were any procedures done? @ -[No] Diagnosis/symptom? @ - eye problem Acute, or Chronic, or Acute on Chronic? @ -acute Uncomplicated (without systemic symptoms) or Complicated (systemic symptoms)? @ -uncomplicated Side effects of treatment? @ -[No] Exacerbation, Progression, or Severe Exacerbation? @ -[No] Poses a threat to life or bodily function? How? (Chest pain, [place], [place], pneumonia, PE, COPD, DKA, ARF, appy, cholecystitis, CVA, Diverticulitis, Homicidal, Suicidal, threat to staff... and all critical care pts) @ -low likelihood Disposition Clinical Impression: Eye problem Disposition: HOME SELF-CARE Condition: Stable Instructions (If sedation given, give patient instructions): Eye Wash (Into the eye), Eye Foreign Body (ED) Additional Instructions: He is return to the nearest emergency department symptoms worsen or persist Is patient prescribed a controlled substance at d/c from ED?: No Referrals: Johnny Garcia MD [Primary Care Provider] - 1-2 days Time of Disposition: 12:10
== END 2023-02-15 12:30 | disposition home or self-care (01) ==
LOC: EC 11:06
DX: H57.9 Unspecified disorder of eye and adnexa (principal); F17.290 Nicotine dependence, other tobacco product, uncomplicated
CPT/HCPCS: 99283

== ENCOUNTER 2023-04-01 15:22 | Emergency (ER) | payer OTHER, SELFPAY ==
--- NOTE | 2023-04-01 17:04 | ED ---
General Adult HPI - General Chief complaint: Skin/Abscess/Foreign Body Stated complaint: hives-poss allergic reaction Time Seen by Provider: 04/01/23 16:19 Source: patient, RN notes reviewed Mode of arrival: ambulatory Limitations: no limitations - History of Present Illness Initial comments: 22-year-old female with no significant past medical history presents to the emergency department the chief complaint of rash. Patient reports worsening rash in between her thighs that started Saturday. She reports that she was outside wearing bleeding. She denies any new lotions, detergents or soaps. Denies any fevers, chills, itching. Patient denies anybody else in the household having the same - Related Data Previous Rx's Medication Instructions Recorded Ondansetron Odt [Zofran Odt] 4 mg PO Q8HR PRN #15 tab 10/15/22 Ondansetron Odt [Zofran Odt] 4 mg PO Q8HR PRN #15 tab 02/14/23 Cephalexin [Keflex] 500 mg PO Q6HR #40 cap 04/01/23 Allergies Allergy/AdvReac Type Severity Reaction Status Date / Time No Known Allergies Allergy Verified 04/01/23 15:27 Review of Systems ROS Statement: Those systems with pertinent positive or pertinent negative responses have been documented in the HPI. ROS Other: All systems not noted in ROS Statement are negative. Past Medical History Past Medical History: No Reported History Additional Past Medical History / Comment(s): ovarian cyst History of Any Multi-Drug Resistant Organisms: None Reported Past Surgical History: No Surgical Hx Reported Past Psychological History: No Psychological Hx Reported Smoking Status: Current every day smoker, Vaper Past Alcohol Use History: None Reported Past Drug Use History: None Reported General Exam - General Exam Comments Initial Comments: General: Alert, in no acute distress Head: atraumatic normocephalic. Eyes PERRL, EOMI intact, mucous membranes moist Respiratory: Lungs clear to auscultation bilaterally Cardiovascular: Heart rate regular rate and rhythm Abdominal: Soft without guarding or rebound Extremities: Normal inspection with full range of motion and normal capillary refill Neuroogic: alert and oriented 3, CN II-XII intact, able to ambulate with steady gait Skin: warm dry and intact with normal color, erythematous rash to bilateral thighs that is well demarcated. No fluctuance. It is not warm. No discharge noted Limitations: no limitations Course Vital Signs 04/01/23 15:25 Temperature 98.1 F Pulse Rate 73 Respiratory 18 Rate Blood Pressure 119/84 O2 Sat by Pulse 99 Oximetry Medical Decision Making - Medical Decision Making Was pt. sent in by a medical professional or institution (RIMMA Castillo, PODIATRIC FOOT AND ANKLE SPECIALIST, urgent care, hospital, or usp...) When possible be specific @ -[No] Did you speak to anyone other than the patient for history (EMS, parent, family, police, friend...)? What history was obtained from this source @ -[No] Did you review nursing and triage notes (agree or disagree)? Why? @ -[I reviewed and agree with nursing and triage notes] Were old charts reviewed (outside hosp., previous admission, EMS record, old EKG, old radiological studies, urgent care reports/EKG's, usp records)? Report findings @ -[No old charts were reviewed] Differential Diagnosis (chest pain, altered mental status, abdominal pain women, abdominal pain men, vaginal bleeding, weakness, fever, dyspnea, syncope, headache, dizziness, GI bleed, back pain, seizure, CVA, palpatations, mental health, musculoskeletal)? @ -[not applicable] EKG interpreted by me (3pts min.). @ -[As above] X-rays interpreted by me (1pt min.). @ -[None done] CT interpreted by me (1pt min.). @ -[None done] U/S interpreted by me (1pt. min.). @ -[None done] What testing was considered but not performed or refused? (CT, X-rays, U/S, labs)? Why? @ -[None] What meds were considered but not given or refused? Why? @ -[None] Did you discuss the management of the patient with other professionals (professionals i.e. RIMMA Castillo, PODIATRIC FOOT AND ANKLE SPECIALIST, lab, RT, psych nurse, dialysis social worker, personal protection specialist, teacher, district resource officer, watch caser)? Give summary @ -[No] Was smoking cessation discussed for >3mins.? @ -[No] Was critical care preformed (if so, how long)? @ -[No] Were there social determinants of health that impacted care today? How? (Homelessness, low income, unemployed, alcoholism, drug addiction, transportation, low edu. Level, literacy, decrease access to med. care, fdc, rehab)? @ -[No] Was there de-escalation of care discussed even if they declined (Discuss DNR or withdrawal of care, Hospice)? DNR status @ -[No] What co-morbidities impacted this encounter? (DM, HTN, Smoking, COPD, CAD, Cancer, CVA, ARF, Chemo, Hep., AIDS, mental health diagnosis, sleep apnea, morbid obesity)? @ -[None] Was patient admitted / discharged? Hospital course, mention meds given and route, prescriptions, significant lab abnormalities, going to OR and other pertinent info. @ - -Discharged. This is 22-year-old female presents the emergency department with rash. Patient had a thorough history and physical exam performed on the ED. Physical exam is essentially unremarkable. Heart rate regular rate and rhythm lungs clear to auscultation bilaterally abdomen soft nontender. There is a erythematous rash to bilateral inner thighs. Patient had orders marked. Patient was given a prescription for Keflex. Patient discharged in stable condition. Return precautions discussed at length. Case discussed with Dr. Garcia, [facility] who agrees with plan of care Undiagnosed new problem with uncertain prognosis? @ -[No] Drug Therapy requiring intensive monitoring for toxicity (Heparin, Nitro, Insulin, Cardizem)? @ -[No] Were any procedures done? @ -[No] Diagnosis/symptom? @ -Rash VS. Cellulitis Acute, or Chronic, or Acute on Chronic? @ -Acute Uncomplicated (without systemic symptoms) or Complicated (systemic symptoms)? @ -Uncomplicated Side effects of treatment? @ -[No] Exacerbation, Progression, or Severe Exacerbation? @ -[No] Poses a threat to life or bodily function? How? (Chest pain, [place], [place], pneumonia, PE, COPD, DKA, ARF, appy, cholecystitis, CVA, Diverticulitis, Homicidal, Suicidal, threat to staff... and all critical care pts) @ -Low likelihood Disposition Clinical Impression: Rash Disposition: HOME SELF-CARE Condition: Stable Instructions (If sedation given, give patient instructions): Acute Rash (ED), Dermatitis (ED) Additional Instructions: PLease return to the nearest emergency department if symptoms worsen or persist Prescriptions: Cephalexin [Keflex] 500 mg PO Q6HR #40 cap Is patient prescribed a controlled substance at d/c from ED?: No Referrals: Johnny Garcia MD [Primary Care Provider] - 1-2 days Time of Disposition: 17:03
[2023-04-01 18:04] VITALS: BP 128/76; PULSE 72; RESP 16; TEMP 97.6
== END 2023-04-01 18:04 | disposition home or self-care (01) ==
LOC: EC 15:22
DX: R21 Rash and other nonspecific skin eruption (principal); F17.290 Nicotine dependence, other tobacco product, uncomplicated
CPT/HCPCS: 99282

== ENCOUNTER 2023-04-12 12:11 | Emergency (ER) | payer OTHER ==
[2023-04-12 12:17] VITALS: BP 140/100; PULSE 93; RESP 20; TEMP 98.6
[2023-04-12] MEDS ORDERED: IBUPROFEN 800 MG TAB PO STA (12:44)
--- NOTE | 2023-04-12 13:05 | XR ---
EXAMINATION TYPE: XR finger LT DATE OF EXAM: 04/12/2023 COMPARISON: NONE HISTORY: Pain TECHNIQUE: Three views are submitted. FINDINGS: The osseous structures are intact. The joint spaces are preserved and there is no acute fracture or dislocation. IMPRESSION: 1. No definite acute fracture or dislocation if symptoms persist, follow-up study in 7 to 10 days wo uld be suggested
[2023-04-12] MEDS ORDERED: ONDANSETRON 4 MG ODT STARTER PACK 2 TAB BTL PO STA (13:30)
[2023-04-12] MEDS ORDERED: IBUPROFEN 600 MG STARTER PACK 4 TAB BTL PO STA (13:30)
--- NOTE | 2023-04-12 13:31 | ED ---
Upper Extremity HPI - General Chief Complaint: Extremity Injury, Upper Stated Complaint: lt hand thumb injury Time Seen by Provider: 04/12/23 12:19 Source: patient, RN notes reviewed Mode of arrival: ambulatory Limitations: no limitations - History of Present Illness Initial Comments: This is a 22-year-old female who presents to the emergency department for a left thumb injury. Patient states that yesterday she accidentally shut her left thumb in a car door. She has since had increasing pain that she describes as a throbbing sensation. She states that she is having difficulty moving the thumb due to the pain. She has not taken any pain medication or applied any ice to the finger. Denies any fevers, chills, sore throat, cough, dyspnea, chest pain, palpitations, abdominal pain, nausea, vomiting, diarrhea, back pain, or headaches. MD Complaint: Injury to:: left, finger (thumb) - Related Data Previous Rx's Medication Instructions Recorded Ondansetron Odt [Zofran Odt] 4 mg PO Q8HR PRN #15 tab 10/15/22 Ondansetron Odt [Zofran Odt] 4 mg PO Q8HR PRN #15 tab 02/14/23 Cephalexin [Keflex] 500 mg PO Q6HR #40 cap 04/01/23 Allergies Allergy/AdvReac Type Severity Reaction Status Date / Time No Known Allergies Allergy Verified 04/01/23 15:27 Review of Systems ROS Statement: Those systems with pertinent positive or pertinent negative responses have been documented in the HPI. ROS Other: All systems not noted in ROS Statement are negative. Past Medical History Past Medical History: No Reported History Additional Past Medical History / Comment(s): ovarian cyst History of Any Multi-Drug Resistant Organisms: None Reported Past Surgical History: No Surgical Hx Reported Past Psychological History: No Psychological Hx Reported Smoking Status: Current every day smoker, Vaper Past Alcohol Use History: None Reported Past Drug Use History: None Reported General Exam Limitations: no limitations General appearance: alert, in no apparent distress Head exam: Present: atraumatic, normocephalic, normal inspection Respiratory exam: Present: normal lung sounds bilaterally. Absent: respiratory distress, wheezes, rales, rhonchi, stridor Cardiovascular Exam: Present: regular rate, normal rhythm, normal heart sounds. Absent: systolic murmur, diastolic murmur, rubs, gallop, clicks Extremities exam: Present: other (Mild swelling to the left thumb. No evidence of a subungual hematoma. Full active range of motion, passive range of motion limited by pain. Capillary refill less than 1 second.) Neurological exam: Present: alert, oriented X3, CN II-XII intact Psychiatric exam: Present: normal affect, normal mood Course Vital Signs 04/12/23 12:13 Temperature 98.6 F Pulse Rate 93 Respiratory 20 Rate Blood Pressure 140/100 O2 Sat by Pulse 99 Oximetry Medical Decision Making - Medical Decision Making This is a 22-year-old female who presents to the emergency department for a left thumb injury. Was pt. sent in by a medical professional or institution? @ -No Did you speak to anyone other than the patient for history? @ -No Did you review nursing and triage notes? @ -Yes, and I agree, it is accurate with regards to the patient's symptoms. Were old charts reviewed? @ -No Differential Diagnosis? @ -Differential Thumb Injury: Fracture, contusion, dislocation, this is not meant to be an all-inclusive list. EKG interpreted by me (3pts min.)? @ -Not obtained X-rays interpreted by me (1pt min.)? @ -XR of the left thumb obtained. My interpretation identifies no acute fractures or dislocations. CT interpreted by me (1pt min.)? @ -Not obtained U/S interpreted by me (1pt. min.)? @ -Not obtained What testing was considered but not performed? (CT, X-rays, U/S, labs)? Why? @ -None What meds were considered but not given? Why? @ -None Did you discuss the management of the patient with other professionals? @ -No Did you reconcile home meds? @ -No Was smoking cessation discussed for >3mins.? @ -No Was critical care preformed (if so, how long)? @ -No Were there social determinants of health that impacted care today? How? (Homelessness, low income, unemployed, alcoholism, drug addiction, transportation, low edu. Level, literacy, decrease access to med. care, group home, rehab)? @ -No Was there de-escalation of care discussed even if they declined? (Discuss DNR or withdrawal of care, Hospice)? @ -No What co-morbidities impacted this encounter? (DM, HTN, Smoking, COPD, CAD, Cancer, CVA, Hep., AIDS, mental health diagnosis, sleep apnea, morbid obesity)? @ -None Was patient admitted / discharged? @ -Discharged. X-ray of the left thumb obtained revealing no acute findings. Advised that if symptoms persist after 7-10 days, she can consider repeat imaging, as there may be fractures that are not currently identifiable due to the swelling. She was put in a finger splint for comfort. Otherwise advised she alternate with ibuprofen and Tylenol as needed for pain relief and apply ice for 10-15 minutes every 2-3 hours. Undiagnosed new problem with uncertain prognosis? @ -None Drug Therapy requiring intensive monitoring for toxicity (Heparin, Nitro, Insulin, Cardizem)? @ -None Were any procedures done? @ -None Diagnosis/symptom? @ -Left thumb contusion Acute, or Chronic, or Acute on Chronic? @ -Acute Uncomplicated (without systemic symptoms) or Complicated (systemic symptoms)? @ -Uncomplicated Side effects of treatment? @ -None Exacerbation, Progression, or Severe Exacerbation] @ -Not applicable Poses a threat to life or bodily function? @ -No Return precautions reviewed in depth, the patient is instructed to return to the emergency department with any new, worsening, or concerning symptoms. Patient verbalized understanding. This case was discussed in detail with the attending ED physician, Dr. Carrero. Presentation, findings, and treatment plan discussed in detail as well. - Radiology Data Radiology results: report reviewed, image reviewed Disposition Clinical Impression: Injury of left thumb Disposition: HOME SELF-CARE Instructions (If sedation given, give patient instructions): Crush Injury (ED) Additional Instructions: Return to the emergency department with any new, worsening, or concerning symptoms. Alternate with ibuprofen and Tylenol as needed for pain relief. Apply ice for 10-15 minutes every 2-3 hours. Follow up with your primary care provider in 1-2 days. Is patient prescribed a controlled substance at d/c from ED?: No Referrals: Johnny Garcia MD [Primary Care Provider] - 1-2 days
== END 2023-04-12 13:56 | disposition home or self-care (01) ==
LOC: EC 12:11
DX: S69.92XA Unspecified injury of left wrist, hand and finger(s), initial encounter (principal); F17.290 Nicotine dependence, other tobacco product, uncomplicated; W23.2XXA Caught, crushed, jammed or pinched between a moving and stationary object, initial encounter
CPT/HCPCS: 73140; 99283; S0119

== ENCOUNTER 2023-04-20 17:27 | Emergency (ER) | payer OTHER ==
[2023-04-20 17:33] VITALS: RESP 20
[2023-04-20] MEDS ORDERED: IBUPROFEN 400 MG TAB PO STA (18:37)
--- NOTE | 2023-04-20 19:45 | ED ---
General Adult HPI - General Chief complaint: ENT Stated complaint: Poss Allergic Reaction/Swollen Throat,Hard to talk Time Seen by Provider: 04/20/23 18:29 Source: patient Mode of arrival: ambulatory Limitations: no limitations - History of Present Illness Initial comments: 22-year-old female presenting with chief complaint of sore throat. Symptoms ongoing for 2 days. She also admits to a cough. She is concerned because she is ALLERGIC to mangoes and had a mejia slushy 2 days ago she is having no difficulty breathing or swallowing. No swelling of the lips. No nausea, vomiting, abdominal pain. No chest pain. - Related Data Previous Rx's Medication Instructions Recorded Ondansetron Odt [Zofran Odt] 4 mg PO Q8HR PRN #15 tab 10/15/22 Ondansetron Odt [Zofran Odt] 4 mg PO Q8HR PRN #15 tab 02/14/23 Cephalexin [Keflex] 500 mg PO Q6HR #40 cap 04/01/23 Allergies Allergy/AdvReac Type Severity Reaction Status Date / Time mejia Allergy Swelling Verified 04/20/23 17:33 Review of Systems ROS Statement: Those systems with pertinent positive or pertinent negative responses have been documented in the HPI. ROS Other: All systems not noted in ROS Statement are negative. Past Medical History Past Medical History: No Reported History Additional Past Medical History / Comment(s): ovarian cyst History of Any Multi-Drug Resistant Organisms: None Reported Past Surgical History: No Surgical Hx Reported Past Psychological History: No Psychological Hx Reported Smoking Status: Current every day smoker, Vaper Past Alcohol Use History: None Reported Past Drug Use History: None Reported General Exam Limitations: no limitations General appearance: alert, in no apparent distress Head exam: Present: atraumatic, normocephalic, normal inspection Eye exam: Present: normal appearance ENT exam: Present: normal exam, normal oropharynx, mucous membranes moist Neck exam: Present: normal inspection, full ROM Respiratory exam: Present: normal lung sounds bilaterally. Absent: respiratory distress, wheezes, rales, rhonchi, stridor Cardiovascular Exam: Present: regular rate, normal rhythm, normal heart sounds. Absent: systolic murmur, diastolic murmur, rubs, gallop, clicks Neurological exam: Present: alert, oriented X3, CN II-XII intact Psychiatric exam: Present: normal affect, normal mood Skin exam: Present: warm, dry, intact, normal color. Absent: rash Course Vital Signs 04/20/23 04/20/23 17:29 19:51 Temperature 99.0 F 98.3 F Pulse Rate 88 78 Respiratory 20 20 Rate Blood Pressure 129/82 121/72 O2 Sat by Pulse 98 98 Oximetry Medical Decision Making - Medical Decision Making Was pt. sent in by a medical professional or institution (, [facility], [facility], urgent care, hospital, or snf...) When possible be specific @ -No Did you speak to anyone other than the patient for history (EMS, parent, family, police, friend...)? What history was obtained from this source @ -No Did you review nursing and triage notes (agree or disagree)? Why? @ -I reviewed and agree with nursing and triage notes Were old charts reviewed (outside hosp., previous admission, EMS record, old EKG, old radiological studies, urgent care reports/EKG's, snf records)? Report findings @ -No old charts were reviewed Differential Diagnosis (chest pain, altered mental status, abdominal pain women, abdominal pain men, vaginal bleeding, weakness, fever, dyspnea, syncope, headache, dizziness, GI bleed, back pain, seizure, CVA, palpatations, mental health, musculoskeletal)? @ -Differential includes viral pharyngitis, strep pharyngitis, ALLERGIC reaction, this is not an all inclusive list EKG interpreted by me (3pts min.). @ -As above X-rays interpreted by me (1pt min.). @ -None done CT interpreted by me (1pt min.). @ -None done U/S interpreted by me (1pt. min.). @ -None done What testing was considered but not performed or refused? (CT, X-rays, U/S, labs)? Why? @ -None What meds were considered but not given or refused? Why? @ -None Did you discuss the management of the patient with other professionals (professionals i.e. [facility] Castillo, [facility], lab, RT, psych nurse, healthcare social worker, plastic boat buffer, teacher, marketing and communications officer, piano case and bench assembler)? Give summary @ -No Was smoking cessation discussed for >3mins.? @ -No Was critical care preformed (if so, how long)? @ -No Were there social determinants of health that impacted care today? How? (Homelessness, low income, unemployed, alcoholism, drug addiction, transportation, low edu. Level, literacy, decrease access to med. care, fdc, rehab)? @ -No Was there de-escalation of care discussed even if they declined (Discuss DNR or withdrawal of care, Hospice)? DNR status @ -No What co-morbidities impacted this encounter? (DM, HTN, Smoking, COPD, CAD, Cancer, CVA, ARF, Chemo, Hep., AIDS, mental health diagnosis, sleep apnea, morbid obesity)? @ -None Was patient admitted / discharged? Hospital course, mention meds given and route, prescriptions, significant lab abnormalities, going to OR and other pertinent info. @ -22-year-old female presenting with chief complaint of sore throat ongoing for 2 days. 2 days ago she was exposed to mangoes which is an allergen for her. She also admits to cough and generalized body aches. Physical examination is unremarkable, heart and lungs are clear to auscultation and there are no signs of angioedema. Patient is having no difficulty breathing or swallowing. She is negative for influenza, RSV, Covid, group A strep. Pharyngitis is likely viral in nature. She is educated on supportive management at home. Follow-up with PCP. Report back to ER with any new or worsening symptoms. Discussed return parameters and answered all questions. Patient conveyed verbal understanding and agreed to the plan. I discussed this case in detail with my attending Dr. Middleton Undiagnosed new problem with uncertain prognosis? @ -No Drug Therapy requiring intensive monitoring for toxicity (Heparin, Nitro, Insulin, Cardizem)? @ -No Were any procedures done? @ -No Diagnosis/symptom? @ -Acute viral pharyngitis Acute, or Chronic, or Acute on Chronic? @ -Acute Uncomplicated (without systemic symptoms) or Complicated (systemic symptoms)? @ -Uncomplicated Side effects of treatment? @ -No Exacerbation, Progression, or Severe Exacerbation? @ -No Poses a threat to life or bodily function? How? (Chest pain, [place], [place], pneumonia, PE, COPD, DKA, ARF, appy, cholecystitis, CVA, Diverticulitis, Homicidal, Suicidal, threat to staff... and all critical care pts) @ -No - Lab Data Lab Results 04/20/23 04/20/23 Range/Units 18:46 18:46 Influenza Type A (PCR) Not Detected (Not Detectd) Influenza Type B (PCR) Not Detected (Not Detectd) RSV (PCR) Not Detected (Not Detectd) SARS-CoV-2 (PCR) Not Detected (Not Detectd) Group A Strep (PCR) NOT DETECTED (Not Detectd) Disposition Clinical Impression: Acute viral pharyngitis Disposition: HOME SELF-CARE Condition: Good Instructions (If sedation given, give patient instructions): Pharyngitis (ED) Additional Instructions: Follow-up with PCP. Report back to ER with any new or worsening symptoms. Take Motrin and Tylenol as needed for pain and fever control. Is patient prescribed a controlled substance at d/c from ED?: No Referrals: Johnny Garcia MD [Primary Care Provider] - 1-2 days Time of Disposition: 19:45
[2023-04-20 19:52] VITALS: BP 121/72; PULSE 78; TEMP 98.3
== END 2023-04-20 19:52 | disposition home or self-care (01) ==
LOC: EC 17:27
DX: J02.9 Acute pharyngitis, unspecified (principal); F17.290 Nicotine dependence, other tobacco product, uncomplicated; Z91.018 Allergy to other foods; Z20.822 Contact with and (suspected) exposure to COVID-19
CPT/HCPCS: 87636; 87651; 99283

== ENCOUNTER 2023-04-22 13:09 | Emergency (ER) | payer OTHER ==
--- NOTE | 2023-04-22 13:55 | ED ---
General Adult HPI - General Source: RN notes reviewed <Clau Ramos - Last Filed: 04/22/23 13:55> <Manpreet Hayden - Last Filed: 04/22/23 16:54> - General Stated complaint: throat pain, fever Time Seen by Provider: 04/22/23 13:55 - History of Present Illness Initial comments: 22-year-old female with no significant past medical history presents the emergency Department chief complaint of fever, congestion, sore throat, diarrhea. (Clau Ramos) Patient is a 22-year-old female presents in the department with nausea, vomiting, fever, congestion, sore throat, diarrhea. Symptoms have been ongoing for multiple days. Is concerned she may have strep throat. Was recently evaluated for this and was negative. Presents for further evaluation. Nurse's joint pain. His no specific complaints otherwise. Is concerned she may be dehydrated. Presents for further evaluation of this time. No known sick contacts. No abdominal pain. No chest pain. No shortness of breath. (Manpreet Hayden) - Related Data Home Medications Medication Instructions Recorded Confirmed Isibloom 0.15-0.03mg Tab 1 tab PO DAILY 04/22/23 04/22/23 Allergies Allergy/AdvReac Type Severity Reaction Status Date / Time mejia Allergy Swelling Verified 04/22/23 14:00 Review of Systems ROS Other: All systems not noted in ROS Statement are negative. <Clau Ramos - Last Filed: 04/22/23 13:55> ROS Other: All systems not noted in ROS Statement are negative. <Manpreet Hayden - Last Filed: 04/22/23 16:54> ROS Statement: Those systems with pertinent positive or pertinent negative responses have been documented in the HPI. Review of Systems: CONST: Denies fever EYES: Denies blurry vision ENT: Endorses nasal congestion , sore throat C/V: Denies Chest pain RESP: Denies shortness of breath GI: Denies abdominal pain : Denies dysuria SKIN: Denies rash. MSK: Endorses body aches NEURO: Denies headache (Manpreet Hayden) Past Medical History Past Medical History: No Reported History Additional Past Medical History / Comment(s): ovarian cyst History of Any Multi-Drug Resistant Organisms: None Reported Past Surgical History: No Surgical Hx Reported Past Psychological History: No Psychological Hx Reported Smoking Status: Current every day smoker, Vaper Past Alcohol Use History: None Reported Past Drug Use History: None Reported <Clau Ramos - Last Filed: 04/22/23 13:55> General Exam <Clau Ramos - Last Filed: 04/22/23 13:55> <Manpreet Hayden - Last Filed: 04/22/23 16:54> - General Exam Comments Initial Comments: Visual Physical Exam Vital signs reviewed General: Well-appearing, nontoxic, no acute distress. Head: Normocephalic, atraumatic Eyes: PERRLA, EOMI ENT: Airway patent Chest: Nonlabored breathing Skin: No visual rash, normal skin tone Neuro: Alert and oriented 3 Musculoskeletal: No gross abnormalities (Clau Ramos) General: Appears in no acute distress. HEAD: Normal with no signs of head trauma. EYES: PERRLA, EOMI, conjunctiva normal, no discharge. ENT: Hearing grossly intact, normal oropharynx. RESPIRATORY: Clear breath sounds bilaterally. No wheezes, rales, or rhonchi. C/V: Regular rate and rhythm. S1 and S2 auscultated, no edema, peripheral pulses 2+ and intact throughout ABD: Abd is soft, nontender, nondistended EXT: Normal range of motion, no obvious deformity SKIN: No rashes or lesions observed on exposed skin. NEURO: Alert and oriented 4. (Manpreet Hayden) Course Vital Signs 04/22/23 04/22/23 13:53 16:44 Temperature 98.2 F Pulse Rate 83 92 Respiratory 18 18 Rate Blood Pressure 128/95 137/106 O2 Sat by Pulse 97 98 Oximetry Medical Decision Making - Lab Data Result diagrams: 04/22/23 15:41 04/22/23 15:41 <Manpreet Hayden - Last Filed: 04/22/23 16:54> - Medical Decision Making Was pt. sent in by a medical professional or institution (, PA, STAVE PLANER TENDER, urgent care, hospital, or longterm...) When possible be specific @ -No Did you speak to anyone other than the patient for history (EMS, parent, family, police, friend...)? What history was obtained from this source @ -No Did you review nursing and triage notes (agree or disagree)? Why? @ -I reviewed and agree with nursing and triage notes Were old charts reviewed (outside hosp., previous admission, EMS record, old EKG, old radiological studies, urgent care reports/EKG's, longterm records)? Report findings @ -No old charts were reviewed Differential Diagnosis (chest pain, altered mental status, abdominal pain women, abdominal pain men, vaginal bleeding, weakness, fever, dyspnea, syncope, headache, dizziness, GI bleed, back pain, seizure, CVA, palpatations, mental health, musculoskeletal)? @ -Viral syndrome, dehydration, nausea and vomiting, COVID-19 infection, strep pharyngitis, this list is not all inclusive. EKG interpreted by me (3pts min.). @ -None done X-rays interpreted by me (1pt min.). @ -Chest x-ray reveals no obvious acute cardio pulmonary process or infection. CT interpreted by me (1pt min.). @ -None done U/S interpreted by me (1pt. min.). @ -None done What testing was considered but not performed or refused? (CT, X-rays, U/S, labs)? Why? @ -None What meds were considered but not given or refused? Why? @ -None Did you discuss the management of the patient with other professionals (professionals i.e. , PA, STAVE PLANER TENDER, lab, RT, psych nurse, social media content manager, sales marketing coordinator, teacher, grant officer, case finisher)? Give summary @ -No Was smoking cessation discussed for >3mins.? @ -No Was critical care preformed (if so, how long)? @ -No Were there social determinants of health that impacted care today? How? (Homelessness, low income, unemployed, alcoholism, drug addiction, transportation, low edu. Level, literacy, decrease access to med. care, fpc, rehab)? @ -No Was there de-escalation of care discussed even if they declined (Discuss DNR or withdrawal of care, Hospice)? DNR status @ -No What co-morbidities impacted this encounter? (DM, HTN, Smoking, COPD, CAD, Cancer, CVA, ARF, Chemo, Hep., AIDS, mental health diagnosis, sleep apnea, morbid obesity)? @ -None Was patient admitted / discharged? Hospital course, mention meds given and route, prescriptions, significant lab abnormalities, going to OR and other pertinent info. @ -Based on the patient's presentation and physical exam, presents with viral syndrome-like symptoms. We will obtain viral swabs, strep swab, as well as chest x-ray and basic labs due to the nausea and vomiting. Concern for dehydration. Patient was in agreement this plan. Vital signs within acceptable limits. Patient's labs are within acceptable limits. Strep pharyngitis negative. Covid, flu, RSV negative. Chest x-ray unremarkable. Following IV fluids, as well as Synthroid treatment patient is feeling improved. She'll be given a work note. Discussed her workup. Likely has a viral syndrome. Strict return precautions discussed. I instructed the patient to follow up with their PCP in the next 1-3 days. I explained that the patient should return to the emergency department if they experience any worsening symptoms. Strict return precautions were discussed with the patient. The patient expressed understanding of these instructions. I answered all questions that the patient had. The patient was discharged home in good condition with their prescriptions and follow up information. Undiagnosed new problem with uncertain prognosis? @ -No Drug Therapy requiring intensive monitoring for toxicity (Heparin, Nitro, Insulin, Cardizem)? @ -No Were any procedures done? @ -No Diagnosis/symptom? @ -Viral syndrome Acute, or Chronic, or Acute on Chronic? @ -Acute Uncomplicated (without systemic symptoms) or Complicated (systemic symptoms)? @ -Complicated Side effects of treatment? @ -No Exacerbation, Progression, or Severe Exacerbation? @ -No Poses a threat to life or bodily function? How? (Chest pain, [place], [place], pneumonia, PE, COPD, DKA, ARF, appy, cholecystitis, CVA, Diverticulitis, Homicidal, Suicidal, threat to staff... and all critical care pts) @ -No (Manpreet Hayden) - Lab Data Lab Results 04/22/23 04/22/23 04/22/23 Range/Units 14:19 14:19 14:19 WBC (3.8-10.6) k/uL RBC (3.80-5.40) m/uL Hgb (11.4-16.0) gm/dL Hct (34.0-46.0) % MCV (80.0-100.0) fL MCH (25.0-35.0) pg MCHC (31.0-37.0) g/dL RDW (11.5-15.5) % Plt Count (150-450) k/uL MPV Neutrophils % % Lymphocytes % % Monocytes % % Eosinophils % % Basophils % % Neutrophils # (1.3-7.7) k/uL Lymphocytes # (1.0-4.8) k/uL Monocytes # (0-1.0) k/uL Eosinophils # (0-0.7) k/uL Basophils # (0-0.2) k/uL Sodium (137-145) mmol/L Potassium (3.5-5.1) mmol/L Chloride (98-107) mmol/L Carbon Dioxide (22-30) mmol/L Anion Gap mmol/L BUN (7-17) mg/dL Creatinine (0.52-1.04) mg/dL Est GFR (CKD-EPI)AfAm (>60 ml/min/1.73 sqM) Est GFR (CKD-EPI)NonAf (>60 ml/min/1.73 sqM) Glucose (74-99) mg/dL Calcium (8.4-10.2) mg/dL Urine Color Urine Appearance (Clear) Urine pH (5.0-8.0) Ur Specific [place] (1.001-1.035) Urine Protein (Negative) Urine Glucose (UA) (Negative) Urine Ketones (Negative) Urine Blood (Negative) Urine Nitrite (Negative) Urine Bilirubin (Negative) Urine Urobilinogen (<2.0) mg/dL Ur Leukocyte Esterase (Negative) Urine RBC (0-5) /hpf Urine WBC (0-5) /hpf Ur Squamous Epith Cells (0-4) /hpf Urine Bacteria (None) /hpf Urine Mucus (None) /hpf Urine HCG, Qual Not Detected (Not Detectd) Influenza Type A (PCR) Not Detected (Not Detectd) Influenza Type B (PCR) Not Detected (Not Detectd) RSV (PCR) Not Detected (Not Detectd) SARS-CoV-2 (PCR) Not Detected (Not Detectd) Group A Strep (PCR) NOT DETECTED (Not Detectd) 04/22/23 04/22/23 04/22/23 Range/Units 15:19 15:41 15:41 WBC 8.9 (3.8-10.6) k/uL RBC 4.99 (3.80-5.40) m/uL Hgb 14.2 (11.4-16.0) gm/dL Hct 42.1 (34.0-46.0) % MCV 84.4 (80.0-100.0) fL MCH 28.5 (25.0-35.0) pg MCHC 33.8 (31.0-37.0) g/dL RDW 14.4 (11.5-15.5) % Plt Count 295 (150-450) k/uL MPV 8.2 Neutrophils % 70 % Lymphocytes % 22 % Monocytes % 4 % Eosinophils % 2 % Basophils % 1 % Neutrophils # 6.3 (1.3-7.7) k/uL Lymphocytes # 1.9 (1.0-4.8) k/uL Monocytes # 0.4 (0-1.0) k/uL Eosinophils # 0.1 (0-0.7) k/uL Basophils # 0.1 (0-0.2) k/uL Sodium 139 (137-145) mmol/L Potassium 4.2 (3.5-5.1) mmol/L Chloride 107 (98-107) mmol/L Carbon Dioxide 22 (22-30) mmol/L Anion Gap 10 mmol/L BUN 7 (7-17) mg/dL Creatinine 0.53 (0.52-1.04) mg/dL Est GFR (CKD-EPI)AfAm >90 (>60 ml/min/1.73 sqM) Est GFR (CKD-EPI)NonAf >90 (>60 ml/min/1.73 sqM) Glucose 92 (74-99) mg/dL Calcium 8.2 L (8.4-10.2) mg/dL Urine Color Yellow Urine Appearance Cloudy H (Clear) Urine pH 6.0 (5.0-8.0) Ur Specific [place] 1.027 (1.001-1.035) Urine Protein Trace H (Negative) Urine Glucose (UA) Negative (Negative) Urine Ketones Negative (Negative) Urine Blood Negative (Negative) Urine Nitrite Negative (Negative) Urine Bilirubin Negative (Negative) Urine Urobilinogen <2.0 (<2.0) mg/dL Ur Leukocyte Esterase Small H (Negative) Urine RBC 1 (0-5) /hpf Urine WBC 2 (0-5) /hpf Ur Squamous Epith Cells 16 H (0-4) /hpf Urine Bacteria Rare H (None) /hpf Urine Mucus Many H (None) /hpf Urine HCG, Qual (Not Detectd) Influenza Type A (PCR) (Not Detectd) Influenza Type B (PCR) (Not Detectd) RSV (PCR) (Not Detectd) SARS-CoV-2 (PCR) (Not Detectd) Group A Strep (PCR) (Not Detectd) Disposition <Clau Ramos - Last Filed: 04/22/23 13:55> Is patient prescribed a controlled substance at d/c from ED?: No Time of Disposition: 16:19 <Manpreet Hayden - Last Filed: 04/22/23 16:54> Clinical Impression: Viral syndrome Disposition: HOME SELF-CARE Condition: Good Instructions (If sedation given, give patient instructions): Acute Nausea and Vomiting (ED), Viral Syndrome (ED) Referrals: Johnny Garcia MD [Primary Care Provider] - 1-2 days
[2023-04-22 13:59] VITALS: RESP 18; TEMP 98.2
[2023-04-22] MEDS ORDERED: ONDANSETRON 4 MG/2 ML VIAL IVP STA (14:48)
[2023-04-22] MEDS ORDERED: SODIUM CHLORIDE 0.9% 1,000 ML IV STA (14:48)
[2023-04-22] MEDS ORDERED: KETOROLAC 15 MG/ML 1 ML VIAL IVP STA (14:48)
--- NOTE | 2023-04-22 15:31 | XR ---
EXAMINATION TYPE: XR chest 2V DATE OF EXAM: 04/22/2023 COMPARISON: NONE HISTORY: Chest pain TECHNIQUE: Frontal and lateral views of the chest are obtained. FINDINGS: There is no focal air space opacity. No evidence for pneumothorax. No pleural effusion. The cardiac silhouette size is within normal limits. The osseous structures are grossly intact. IMPRESSION: 1. No acute cardiopulmonary process.
[2023-04-22 15:41] LABS: Appearance,Urine Cloudy (Clear); Bacteria,Urine Rare /hpf; Bilirubin,Urine Negative (Negative); Blood,Urine Negative (Negative); Color,Urine Yellow; Glucose,Urine (UA) Negative (Negative); Ketones,Urine Negative (Negative); Leukocyte Esterase,Urine Small (Negative); Mucus,Urine Many /hpf; Nitrite,Urine Negative (Negative); Protein,Urine Trace (Negative); RBC,Urine 1 /hpf (0-5); Specific Gravity,Urine 1.027 (1.001-1.035); Squamous Epithelial Cell,Urine 16 /hpf (0-4); Urobilinogen,Urine <2.0 mg/dL (<2.0); WBC,Urine 2 /hpf (0-5)
[2023-04-22 15:53] LABS: Basophils # (A) 0.1 k/uL (0-0.2); Basophils % (A) 1 %; Eosinophils # (A) 0.1 k/uL (0-0.7); Eosinophils % (A) 2 %; HCT 42.1 % (34.0-46.0); HGB 14.2 gm/dL (11.4-16.0); Lymphocytes # (A) 1.9 k/uL (1.0-4.8); Lymphocytes % (A) 22 %; MCH 28.5 pg (25.0-35.0); MCHC 33.8 g/dL (31.0-37.0); MCV 84.4 fL (80.0-100.0); Mean Platelet Volume 8.2; Monocytes # (A) 0.4 k/uL (0-1.0); Monocytes % (A) 4 %; Neutrophils # (A) 6.3 k/uL (1.3-7.7); Neutrophils % (A) 70 %; Platelet Count 295 k/uL (150-450); RBC 4.99 m/uL (3.80-5.40); RDW 14.4 % (11.5-15.5); WBC 8.9 k/uL (3.8-10.6)
[2023-04-22 16:05] LABS: African American GFR (CKD) >90 (>60 ml/min/1.73 sqM); Anion Gap 10 mmol/L; Blood Urea Nitrogen 7 mg/dL (7-17); Calcium 8.2 mg/dL (8.4-10.2); Carbon Dioxide 22 mmol/L (22-30); Chloride 107 mmol/L (98-107); Glucose 92 mg/dL (74-99); Non-African American GFR(CKD) >90 (>60 ml/min/1.73 sqM); Potassium 4.2 mmol/L (3.5-5.1); Sodium 139 mmol/L (137-145)
[2023-04-22] MEDS ORDERED: ONDANSETRON 4 MG ODT STARTER PACK 2 TAB BTL PO STA (16:33)
[2023-04-22 16:46] VITALS: BP 137/106; PULSE 92
== END 2023-04-22 16:45 | disposition home or self-care (01) ==
LOC: EC 13:09
DX: B34.9 Viral infection, unspecified (principal); F17.290 Nicotine dependence, other tobacco product, uncomplicated; Z91.018 Allergy to other foods; Z20.822 Contact with and (suspected) exposure to COVID-19
CPT/HCPCS: 36415; 87651; 80048; 85025; 81001; 81025; 87636; 71046; 99284; 96374; 96375; 96361; J2405; J1885; S0119

== ENCOUNTER 2023-06-15 14:29 | Emergency (ER) | payer OTHER ==
[2023-06-15 14:40] VITALS: BP 123/80; PULSE 75; RESP 20; TEMP 98.3
== END 2023-06-15 15:15 | disposition left against medical advice (07) ==
LOC: EC 14:29
DX: J02.9 Acute pharyngitis, unspecified (principal); Z53.21 Procedure and treatment not carried out due to patient leaving prior to being seen by health care provider
CPT/HCPCS: 87651; 99499

== ENCOUNTER 2023-12-07 13:09 | Emergency (ER) | payer OTHER ==
--- NOTE | 2023-12-07 13:25 | ED ---
General Adult HPI - General Source: patient, RN notes reviewed Mode of arrival: ambulatory Limitations: no limitations <Ayesha Rodriges - Last Filed: 12/07/23 13:22> - General Source: patient, RN notes reviewed Mode of arrival: ambulatory Limitations: no limitations <Cary Aly - Last Filed: 12/08/23 11:17> - General Chief complaint: Chest Pain Stated complaint: chest pains Time Seen by Provider: 12/07/23 13:22 - History of Present Illness Initial comments: Quick Note: This is a 23-year-old female who presents to the emergency department for chest pain, headaches, coughing, and shortness of breath. Symptoms started 5 days ago. She tried using her family member's inhaler, which she did find beneficial for her symptoms. (Ayesha Rodriges) Patient is a 23 year old femlae presenting to the ER with a chief complaint of headaches, cough, congestion, left shoulder pain. She reports her symptoms started about 5 days ago. She states she has been around other family members with illness. She has been using family members inhaler for her symptoms with improvement. Denies any fevers, chills, abdominal pain, constipation/diarrhea, urinary complaints. (Cary Aly) - Related Data Home Medications Medication Instructions Recorded Confirmed Isibloom 0.15-0.03mg Tab 1 tab PO DAILY 04/22/23 04/22/23 Allergies Allergy/AdvReac Type Severity Reaction Status Date / Time mejia Allergy Swelling Verified 06/15/23 14:40 Review of Systems ROS Other: All systems not noted in ROS Statement are negative. <Ayesha Rodriges - Last Filed: 12/07/23 13:22> ROS Other: All systems not noted in ROS Statement are negative. <Cary Aly - Last Filed: 12/08/23 11:17> ROS Statement: Those systems with pertinent positive or pertinent negative responses have been documented in the HPI. Past Medical History Past Medical History: No Reported History Additional Past Medical History / Comment(s): ovarian cyst History of Any Multi-Drug Resistant Organisms: None Reported Past Surgical History: No Surgical Hx Reported Past Psychological History: No Psychological Hx Reported Smoking Status: Current every day smoker, Vaper Past Alcohol Use History: None Reported Past Drug Use History: None Reported <Ayseha Rodriges - Last Filed: 12/07/23 13:22> General Exam <Ayesha Rodriges - Last Filed: 12/07/23 13:22> General appearance: alert, in no apparent distress Head exam: Present: atraumatic, normocephalic, normal inspection Eye exam: Present: normal appearance, PERRL, EOMI. Absent: scleral icterus, conjunctival injection, periorbital swelling ENT exam: Present: normal exam, normal oropharynx, mucous membranes moist, TM's normal bilaterally Neck exam: Present: normal inspection. Absent: tenderness, meningismus, lymphadenopathy Respiratory exam: Present: normal lung sounds bilaterally. Absent: respiratory distress, wheezes, rales, rhonchi, stridor Cardiovascular Exam: Present: regular rate, normal rhythm, normal heart sounds. Absent: systolic murmur, diastolic murmur, rubs, gallop, clicks Extremities exam: Present: normal inspection, full ROM, tenderness (Left AC joint tenderness to palpation. Positive cross body test.), normal capillary refill. Absent: pedal edema, joint swelling, calf tenderness Neurological exam: Present: alert, oriented X3, CN II-XII intact Psychiatric exam: Present: normal affect, normal mood Skin exam: Present: warm, dry, intact, normal color. Absent: rash <Cary Aly - Last Filed: 12/08/23 11:17> - General Exam Comments Initial Comments: Visual Physical Exam Vital signs reviewed General: Well-appearing, nontoxic, no acute distress. Head: Normocephalic, atraumatic Eyes: PERRLA, EOMI ENT: Airway patent Chest: Nonlabored breathing Skin: No visual rash, normal skin tone Neuro: Alert and oriented 3 Musculoskeletal: No gross abnormalities (Ayesha Rodriges) Course Vital Signs 12/07/23 12/07/23 13:57 16:19 Temperature 97.6 F 97.9 F Pulse Rate 70 72 Respiratory 16 18 Rate Blood Pressure 136/86 118/70 O2 Sat by Pulse 98 97 Oximetry Medical Decision Making <Ayesha Rodriges - Last Filed: 12/07/23 13:22> - Radiology Data Radiology results: report reviewed, image reviewed <Cary Aly - Last Filed: 12/08/23 11:17> - Medical Decision Making I performed the QuickNote portion of this chart. Signed Ayesha Rodriges PA-C. (Ayesha Rodriges) Was pt. sent in by a medical professional or institution (RIMMA Castillo, CHAMBER WORKER, urgent care, hospital, or halfway...) When possible be specific @ -No Did you speak to anyone other than the patient for history (EMS, parent, family, police, friend...)? What history was obtained from this source @ -No Did you review nursing and triage notes (agree or disagree)? Why? @ -I reviewed and agree with nursing and triage notes Were old charts reviewed (outside hosp., previous admission, EMS record, old EKG, old radiological studies, urgent care reports/EKG's, halfway records)? Report findings @ -No old charts were reviewed Differential Diagnosis (chest pain, altered mental status, abdominal pain women, abdominal pain men, vaginal bleeding, weakness, fever, dyspnea, syncope, headache, dizziness, GI bleed, back pain, seizure, CVA, palpatations, mental health, musculoskeletal)? @ -COVID, RSV, influenza, viral sinusitis, pneumonia this list is not meant to be all-inclusive EKG interpreted by me (3pts min.). @ -None X-rays interpreted by me (1pt min.). @ -Chest x-ray interpreted me shows no acute cardiopulmonary process. Left shoulder x-ray negative for acute process. CT interpreted by me (1pt min.). @ -None done U/S interpreted by me (1pt. min.). @ -None done What testing was considered but not performed or refused? (CT, X-rays, U/S, labs)? Why? @ -None What meds were considered but not given or refused? Why? @ -None Did you discuss the management of the patient with other professionals (professionals i.e. RIMMA Castillo, CHAMBER WORKER, lab, RT, psych nurse, social worker assistant, doctor of osteopathy, teacher, security police officer, housing case manager)? Give summary @ -No Was smoking cessation discussed for >3mins.? @ -I discussed smoking cessation for greater than 3 minutes. The risk of smoking were discussed with the patient including but not limited to risks of cancer, stroke, coronary artery disease and COPD. Also discussed with patient were multiple methods of quitting smoking. Lastly we discussed the financial cost of smoking. Was critical care preformed (if so, how long)? @ -No Were there social determinants of health that impacted care today? How? (Homelessness, low income, unemployed, alcoholism, drug addiction, transportation, low edu. Level, literacy, decrease access to med. care, care home, rehab)? @ -No Was there de-escalation of care discussed even if they declined (Discuss DNR or withdrawal of care, Hospice)? DNR status @ -No What co-morbidities impacted this encounter? (DM, HTN, Smoking, COPD, CAD, Cancer, CVA, ARF, Chemo, Hep., AIDS, mental health diagnosis, sleep apnea, morbid obesity)? @ -Smoker Was patient admitted / discharged? Hospital course, mention meds given and route, prescriptions, significant lab abnormalities, going to OR and other pertinent info. @ -Discharge. Patient is a 23-year-old female presented to the ER with chief complaint of cough, congestion and headaches. History and physical exam completed. Vitals stable. Patient in no signs of acute distress and nontoxic-appearing. Lung sounds clear to auscultation bilaterally. Patient did have tenderness over left AC joint and positive cross body test. No acute neurological findings on exam. COVID, influenza, RSV negative. X-rays interpreted by me negative for acute process. Advised patient to use [id number] Tylenol and Motrin for fever and symptom control. Strict return parameters were discussed. Patient discharged in stable condition with follow-up to PCP. Patient expressed understanding and agreement care plan. Undiagnosed new problem with uncertain prognosis? @ -No Drug Therapy requiring intensive monitoring for toxicity (Heparin, Nitro, Insulin, Cardizem)? @ -No Were any procedures done? @ -No Diagnosis/symptom? @ -Viral sinusitis Acute, or Chronic, or Acute on Chronic? @ -Acute Uncomplicated (without systemic symptoms) or Complicated (systemic symptoms)? @ -Uncomplicated Side effects of treatment? @ -No Exacerbation, Progression, or Severe Exacerbation? @ -No Poses a threat to life or bodily function? How? (Chest pain, [place], [place], pneumonia, PE, COPD, DKA, ARF, appy, cholecystitis, CVA, Diverticulitis, Homicidal, Suicidal, threat to staff... and all critical care pts) @ -No (Cary Aly) - Lab Data Lab Results 12/07/23 Range/Units 14:04 Influenza Type A (PCR) Not Detected (Not Detectd) Influenza Type B (PCR) Not Detected (Not Detectd) RSV (PCR) Not Detected (Not Detectd) SARS-CoV-2 (PCR) Not Detected (Not Detectd) Disposition <Ayesha Rodriges - Last Filed: 12/07/23 13:22> Is patient prescribed a controlled substance at d/c from ED?: No Time of Disposition: 15:55 <Cary Aly - Last Filed: 12/08/23 11:17> Clinical Impression: Viral infection, Acute viral sinusitis Disposition: HOME SELF-CARE Condition: Stable Additional Instructions: May use [id number] Tylenol Motrin every 4-6 hours for fever and symptom control. Follow-up with PCP. Return to the ER for any new or worsening symptoms. Referrals: Johnny Garcia MD [Primary Care Provider] - 1-2 days
--- NOTE | 2023-12-07 15:49 | XR ---
EXAMINATION TYPE: XR shoulder complete LT DATE OF EXAM: 12/07/2023 3:42 PM CLINICAL INDICATION:Female, 23 years old with history of pain; COMPARISON: 05/24/2005 TECHNIQUE: XR shoulder complete LT; examined in AP, internally rotated and scapular Y projections. FINDINGS: No evidence of acute osseous pathology, joint dislocation, or soft tissue swelling. The remaining po rtions of the visualized chest are unremarkable. IMPRESSION: No acute osseous pathology.
--- NOTE | 2023-12-07 15:49 | XR ---
EXAMINATION TYPE: XR chest 2V DATE OF EXAM: 12/07/2023 3:41 PM CLINICAL INDICATION:Female, 23 years old with history of Chest pain; COMPARISON: Chest radiographs from 04/22/2023 TECHNIQUE: XR chest 2V Frontal and lateral views of the chest. FINDINGS: Lungs/Pleura: There is no evidence of pleural effusion, focal consolidation, or pneumothorax. Pulmonary vascularity: Unremarkable. Heart/mediastinum: Cardiomediastinal silhouette is unremarkable. Musculoskeletal: No acute osseous pathology. IMPRESSION: No acute cardiopulmonary disease/process.
[2023-12-07 16:27] VITALS: BP 118/70; PULSE 72; RESP 18; TEMP 97.9
== END 2023-12-07 16:20 | disposition home or self-care (01) ==
LOC: EC 13:09
DX: J01.90 Acute sinusitis, unspecified (principal); B34.9 Viral infection, unspecified; M25.512 Pain in left shoulder; F17.290 Nicotine dependence, other tobacco product, uncomplicated; Z20.822 Contact with and (suspected) exposure to COVID-19; Z91.018 Allergy to other foods
CPT/HCPCS: 71046; 87636; 99285; 99406

== ENCOUNTER 2024-01-10 13:23 | Emergency (ER) | payer OTHER ==
[2024-01-10 14:14] VITALS: RESP 18
[2024-01-10] MEDS: SODIUM CHLORIDE 0.9% 1,000 ML IV STA (15:01)
[2024-01-10] MEDS: DEXAMETHASONE SOD PHOSPHATE 10 MG/ML 1 ML VIAL IVP STA (15:01)
[2024-01-10] MEDS: KETOROLAC 15 MG/ML 1 ML VIAL IVP STA (15:03)
[2024-01-10] MEDS: diphenhydrAMINE 50 MG/ML 1 ML VIAL IVP STA (15:05)
[2024-01-10] MEDS: METOCLOPRAMIDE 5 MG/ML 2 ML VIAL IVP STA (15:06)
[2024-01-10 15:09] LABS: Basophils # (A) 0.1 k/uL (0-0.2); Basophils % (A) 1 %; Eosinophils # (A) 0.3 k/uL (0-0.7); Eosinophils % (A) 3 %; HCT 44.7 % (34.0-46.0); HGB 13.9 gm/dL (11.4-16.0); Lymphocytes # (A) 2.4 k/uL (1.0-4.8); Lymphocytes % (A) 25 %; MCH 25.8 pg (25.0-35.0); MCHC 31.1 g/dL (31.0-37.0); MCV 82.8 fL (80.0-100.0); Mean Platelet Volume 8.1; Monocytes # (A) 0.5 k/uL (0-1.0); Monocytes % (A) 6 %; Neutrophils # (A) 5.9 k/uL (1.3-7.7); Neutrophils % (A) 63 %; Platelet Count 283 k/uL (150-450); RBC 5.39 m/uL (3.80-5.40); RDW 15.6 % (11.5-15.5); WBC 9.3 k/uL (3.8-10.6)
--- NOTE | 2024-01-10 15:09 | ED ---
Headache HPI - General Chief Complaint: Nausea/Vomiting/Diarrhea Stated Complaint: Cough/Fever Time Seen by Provider: 01/10/24 13:58 Source: patient, RN notes reviewed Mode of arrival: ambulatory Limitations: no limitations - History of Present Illness Initial Comments: This is a 23-year-old female who presents to the emergency department for headaches, nausea, and vomiting. States that over the last couple of days she has felt like she is in a daze and she is having trouble concentrating. She has also had a couple of episodes of nausea and vomiting. She last threw up this morning, but is not currently nauseous. Denies any abdominal pain. States that she does have a severe headache. She would not describe this as the worst headache of her life. MD Complaint: headache - Related Data Home Medications Medication Instructions Recorded Confirmed Isibloom 0.15-0.03mg Tab 1 tab PO DAILY 04/22/23 04/22/23 Previous Rx's Medication Instructions Recorded Ketorolac [Toradol] 10 mg PO Q6HR PRN #15 tab 01/10/24 Ondansetron Odt [Zofran Odt] 4 mg PO Q8HR PRN #15 tab 01/10/24 SUMAtriptan succinate 100 mg PO DIRECTED PRN #20 01/10/24 tablet Allergies Allergy/AdvReac Type Severity Reaction Status Date / Time mejia Allergy Swelling Verified 01/10/24 13:51 Review of Systems ROS Statement: Those systems with pertinent positive or pertinent negative responses have been documented in the HPI. ROS Other: All systems not noted in ROS Statement are negative. Past Medical History Past Medical History: No Reported History Additional Past Medical History / Comment(s): ovarian cyst History of Any Multi-Drug Resistant Organisms: None Reported Past Surgical History: No Surgical Hx Reported Past Psychological History: No Psychological Hx Reported Smoking Status: Current every day smoker, Vaper Past Alcohol Use History: None Reported Past Drug Use History: None Reported General Exam Limitations: no limitations General appearance: alert, in no apparent distress Head exam: Present: atraumatic, normocephalic, normal inspection Eye exam: Present: normal appearance, PERRL, EOMI. Absent: scleral icterus, conjunctival injection, periorbital swelling Respiratory exam: Present: normal lung sounds bilaterally. Absent: respiratory distress, wheezes, rales, rhonchi, stridor Cardiovascular Exam: Present: regular rate, normal rhythm, normal heart sounds. Absent: systolic murmur, diastolic murmur, rubs, gallop, clicks Neurological exam: Present: alert, oriented X3, CN II-XII intact Psychiatric exam: Present: normal affect, normal mood Skin exam: Present: warm, dry, intact, normal color. Absent: rash Course Vital Signs 01/10/24 01/10/24 13:47 17:11 Temperature 97.7 F 98.0 F Pulse Rate 68 72 Respiratory 18 18 Rate Blood Pressure 125/85 124/73 O2 Sat by Pulse 98 97 Oximetry Medical Decision Making - Medical Decision Making This is a 23 year old female who presents to the emergency department for headaches, nausea, and vomiting. Was pt. sent in by a medical professional or institution? @ -No Did you speak to anyone other than the patient for history? @ -No Did you review nursing and triage notes? @ -Yes, and I agree, it is accurate with regards to the patient's symptoms. Were old charts reviewed? @ -No Differential Diagnosis? @ -Differential Headache: Migraine, tension, cluster, carbon monoxide, central venous thrombosis, pension karma temporal arteritis, acute closure glaucoma, intercranial hemorrhage, mastoiditis, sinusitis, head injury, this is not meant to be an all-inclusive list. EKG interpreted by me (3pts min.)? @ -EKG interpreted by me demonstrating the following: Sinus rhythm. Ventricular rate 68 bpm, SD interval 138 ms, QRS duration 86 ms, QTc 398 ms. X-rays interpreted by me (1pt min.)? @ -Not obtained CT interpreted by me (1pt min.)? @ -Not obtained U/S interpreted by me (1pt. min.)? @ -Not obtained What testing was considered but not performed? (CT, X-rays, U/S, labs)? Why? @ -None What meds were considered but not given? Why? @ -None Did you discuss the management of the patient with other professionals? @ -No Did you reconcile home meds? @ -No Was smoking cessation discussed for >3mins.? @ -No Was critical care preformed (if so, how long)? @ -No Were there social determinants of health that impacted care today? How? (Homelessness, low income, unemployed, alcoholism, drug addiction, transportation, low edu. Level, literacy, decrease access to med. care, group home, rehab)? @ -No Was there de-escalation of care discussed even if they declined? (Discuss DNR or withdrawal of care, Hospice)? @ -No What co-morbidities impacted this encounter? (DM, HTN, Smoking, COPD, CAD, Cancer, CVA, Hep., AIDS, mental health diagnosis, sleep apnea, morbid obesity)? @ -Migraines Was patient admitted / discharged? @ -Discharged. Lab work unremarkable. COVID, influenza, and RSV testing were negative. Urinalysis negative for signs of infection. Patient treated with IV fluids and migraine cocktail consisting of Toradol, Decadron, Reglan, and Benadryl, with improvement in symptoms. She was given a prescription for sumatriptan and Toradol for additional management of the headaches given her history of suffering from migraines as well as Zofran for nausea and vomiting. Advised she follow-up with her primary care provider for further evaluation of her other symptoms. Patient discharged home in stable condition. Undiagnosed new problem with uncertain prognosis? @ -None Drug Therapy requiring intensive monitoring for toxicity (Heparin, Nitro, Insulin, Cardizem)? @ -None Were any procedures done? @ -None Diagnosis/symptom? @ -Headache, Nausea and vomiting Acute, or Chronic, or Acute on Chronic? @ -Acute Uncomplicated (without systemic symptoms) or Complicated (systemic symptoms)? @ -Uncomplicated Side effects of treatment? @ -None Exacerbation, Progression, or Severe Exacerbation] @ -Not applicable Poses a threat to life or bodily function? @ -No Return precautions reviewed in depth, the patient is instructed to return to the emergency department with any new, worsening, or concerning symptoms. Patient verbalized understanding. This case was discussed in detail with the attending ED physician, Dr. Carrero. Presentation, findings, and treatment plan discussed in detail as well. - Lab Data Result diagrams: 01/10/24 14:57 01/10/24 14:57 Lab Results 01/10/24 01/10/24 01/10/24 Range/Units 14:57 14:57 14:57 WBC 9.3 (3.8-10.6) k/uL RBC 5.39 (3.80-5.40) m/uL Hgb 13.9 (11.4-16.0) gm/dL Hct 44.7 (34.0-46.0) % MCV 82.8 (80.0-100.0) fL MCH 25.8 (25.0-35.0) pg MCHC 31.1 (31.0-37.0) g/dL RDW 15.6 H (11.5-15.5) % Plt Count 283 (150-450) k/uL MPV 8.1 Neutrophils % 63 % Lymphocytes % 25 % Monocytes % 6 % Eosinophils % 3 % Basophils % 1 % Neutrophils # 5.9 (1.3-7.7) k/uL Lymphocytes # 2.4 (1.0-4.8) k/uL Monocytes # 0.5 (0-1.0) k/uL Eosinophils # 0.3 (0-0.7) k/uL Basophils # 0.1 (0-0.2) k/uL Sodium 138 (137-145) mmol/L Potassium 4.3 (3.5-5.1) mmol/L Chloride 107 (98-107) mmol/L Carbon Dioxide 22 (22-30) mmol/L Anion Gap 9 mmol/L BUN 10 (7-17) mg/dL Creatinine 0.56 (0.52-1.04) mg/dL Est GFR (CKD-EPI)AfAm >90 (>60 ml/min/1.73 sqM) Est GFR (CKD-EPI)NonAf >90 (>60 ml/min/1.73 sqM) Glucose 88 (74-99) mg/dL Calcium 8.9 (8.4-10.2) mg/dL Total Bilirubin 0.4 (0.2-1.3) mg/dL AST 21 (14-36) U/L ALT 15 (4-34) U/L Alkaline Phosphatase 95 (38-126) U/L Total Protein 7.1 (6.3-8.2) g/dL Albumin 4.3 (3.5-5.0) g/dL Amylase 50 (30-110) U/L Lipase 42 (23-300) U/L HCG, Qual Not Detected Urine Color Yellow Urine Appearance Clear (Clear) Urine pH 6.5 (5.0-8.0) Ur Specific [place] 1.025 (1.001-1.035) Urine Protein Negative (Negative) Urine Glucose (UA) Negative (Negative) Urine Ketones Negative (Negative) Urine Blood Negative (Negative) Urine Nitrite Negative (Negative) Urine Bilirubin Negative (Negative) Urine Urobilinogen <2.0 (<2.0) mg/dL Ur Leukocyte Esterase Negative (Negative) Influenza Type A (PCR) (Not Detectd) Influenza Type B (PCR) (Not Detectd) RSV (PCR) (Not Detectd) SARS-CoV-2 (PCR) (Not Detectd) 01/10/24 Range/Units 14:57 WBC (3.8-10.6) k/uL RBC (3.80-5.40) m/uL Hgb (11.4-16.0) gm/dL Hct (34.0-46.0) % MCV (80.0-100.0) fL MCH (25.0-35.0) pg MCHC (31.0-37.0) g/dL RDW (11.5-15.5) % Plt Count (150-450) k/uL MPV Neutrophils % % Lymphocytes % % Monocytes % % Eosinophils % % Basophils % % Neutrophils # (1.3-7.7) k/uL Lymphocytes # (1.0-4.8) k/uL Monocytes # (0-1.0) k/uL Eosinophils # (0-0.7) k/uL Basophils # (0-0.2) k/uL Sodium (137-145) mmol/L Potassium (3.5-5.1) mmol/L Chloride (98-107) mmol/L Carbon Dioxide (22-30) mmol/L Anion Gap mmol/L BUN (7-17) mg/dL Creatinine (0.52-1.04) mg/dL Est GFR (CKD-EPI)AfAm (>60 ml/min/1.73 sqM) Est GFR (CKD-EPI)NonAf (>60 ml/min/1.73 sqM) Glucose (74-99) mg/dL Calcium (8.4-10.2) mg/dL Total Bilirubin (0.2-1.3) mg/dL AST (14-36) U/L ALT (4-34) U/L Alkaline Phosphatase (38-126) U/L Total Protein (6.3-8.2) g/dL Albumin (3.5-5.0) g/dL Amylase (30-110) U/L Lipase (23-300) U/L HCG, Qual Urine Color Urine Appearance (Clear) Urine pH (5.0-8.0) Ur Specific [place] (1.001-1.035) Urine Protein (Negative) Urine Glucose (UA) (Negative) Urine Ketones (Negative) Urine Blood (Negative) Urine Nitrite (Negative) Urine Bilirubin (Negative) Urine Urobilinogen (<2.0) mg/dL Ur Leukocyte Esterase (Negative) Influenza Type A (PCR) Not Detected (Not Detectd) Influenza Type B (PCR) Not Detected (Not Detectd) RSV (PCR) Not Detected (Not Detectd) SARS-CoV-2 (PCR) Not Detected (Not Detectd) Disposition Clinical Impression: Headache, Nausea & vomiting Disposition: HOME SELF-CARE Instructions (If sedation given, give patient instructions): Acute Headache (ED), Acute Nausea and Vomiting (ED) Additional Instructions: Return to the emergency department with any new, worsening, or concerning symptoms. If you have another headache, you can try taking the sumatriptan. If this is not effective, you can repeat the dose in 2 hours. Do not take more than 2 tablets in 24 hours. Take the Toradol with Tylenol as needed for pain relief. If you choose to take the Toradol, do not take any other anti- inflammatories such as ibuprofen, take one or the other. You can take the Zofran up to every 8 hours as needed for nausea and vomiting. Review the list of primary care providers provided to become established for ongoing medical care. Prescriptions: SUMAtriptan succinate 100 mg PO DIRECTED PRN #20 tablet PRN Reason: Migraine Headache Ketorolac [Toradol] 10 mg PO Q6HR PRN #15 tab PRN Reason: Pain Ondansetron Odt [Zofran Odt] 4 mg PO Q8HR PRN #15 tab PRN Reason: Nausea And Vomiting Is patient prescribed a controlled substance at d/c from ED?: No Referrals: Johnny Garcia MD [Primary Care Provider] - 1-2 days Forms: Work/School Release, Area PCPs Time of Disposition: 16:55
[2024-01-10 15:17] LABS: Appearance,Urine Clear (Clear); Bilirubin,Urine Negative (Negative); Blood,Urine Negative (Negative); Color,Urine Yellow; Glucose,Urine (UA) Negative (Negative); Ketones,Urine Negative (Negative); Leukocyte Esterase,Urine Negative (Negative); Nitrite,Urine Negative (Negative); PH, Urine 6.5 (5.0-8.0); Protein,Urine Negative (Negative); Specific Gravity,Urine 1.025 (1.001-1.035); Urobilinogen,Urine <2.0 mg/dL (<2.0)
[2024-01-10 15:39] LABS: ALT 15 U/L (4-34); AST 21 U/L (14-36); African American GFR (CKD) >90 (>60 ml/min/1.73 sqM); Albumin 4.3 g/dL (3.5-5.0); Alkaline Phosphatase 95 U/L (38-126); Amylase 50 U/L (30-110); Anion Gap 9 mmol/L; Blood Urea Nitrogen 10 mg/dL (7-17); Calcium 8.9 mg/dL (8.4-10.2); Carbon Dioxide 22 mmol/L (22-30); Chloride 107 mmol/L (98-107); Glucose 88 mg/dL (74-99); Lipase 42 U/L (23-300); Non-African American GFR(CKD) >90 (>60 ml/min/1.73 sqM); Potassium 4.3 mmol/L (3.5-5.1); Sodium 138 mmol/L (137-145); Total Bilirubin 0.4 mg/dL (0.2-1.3); Total Protein 7.1 g/dL (6.3-8.2)
[2024-01-10 16:40] LABS: HCG,Qualitative Serum Not Detected
[2024-01-10 17:27] VITALS: BP 124/73; PULSE 72; TEMP 98
== END 2024-01-10 17:18 | disposition home or self-care (01) ==
LOC: EC 13:23
DX: R11.2 Nausea with vomiting, unspecified (principal); R50.9 Fever, unspecified; Z91.018 Allergy to other foods
CPT/HCPCS: 36415; 93005; 80053; 82150; 83690; 85025; 81003; 84703; 87636; 99284; 96374; 96375 ×3; 96361; J1200; J1100; J2765; J1885

== ENCOUNTER 2024-02-11 16:24 | Emergency (ER) | payer OTHER ==
[2024-02-11 16:46] VITALS: TEMP 98.5
--- NOTE | 2024-02-11 18:01 | ED ---
General Adult HPI - General Chief complaint: Arrhythmia/Palpitations Stated complaint: Palpitations Time Seen by Provider: 02/11/24 17:00 Source: patient, RN notes reviewed, old records reviewed Mode of arrival: ambulatory Limitations: no limitations - History of Present Illness Initial comments: This is a 23-year-old female who comes to the emergency department complaining of palpitations. Patient states it has been happening the last couple of weeks but it only happens once or twice a week. Patient states when it comes it is a quick extra beat and then a couple minutes later it at her occurs again. Patient states is not occurring currently. Patient states there is no chest pain there is no shortness of breath or difficulty breathing. Patient states there is no lightheadedness. Patient states she has been occasionally experiencing a very slight headache but currently she has no headache. Patient denies any numbness weakness. Patient denies any fever chills or cough. Patient denies any heart history. Patient states at this moment she is not having any palpitations or headache. - Related Data Home Medications Medication Instructions Recorded Confirmed Isibloom 0.15-0.03mg Tab 1 tab PO DAILY 04/22/23 04/22/23 Previous Rx's Medication Instructions Recorded Ketorolac [Toradol] 10 mg PO Q6HR PRN #15 tab 01/10/24 Ondansetron Odt [Zofran Odt] 4 mg PO Q8HR PRN #15 tab 01/10/24 SUMAtriptan succinate 100 mg PO DIRECTED PRN #20 01/10/24 tablet Allergies Allergy/AdvReac Type Severity Reaction Status Date / Time mejia Allergy Swelling Verified 02/11/24 16:39 Review of Systems ROS Statement: Those systems with pertinent positive or pertinent negative responses have been documented in the HPI. ROS Other: All systems not noted in ROS Statement are negative. Past Medical History Past Medical History: No Reported History Additional Past Medical History / Comment(s): ovarian cyst History of Any Multi-Drug Resistant Organisms: None Reported Past Surgical History: No Surgical Hx Reported Past Psychological History: No Psychological Hx Reported Smoking Status: Current every day smoker, Vaper Past Alcohol Use History: None Reported Past Drug Use History: None Reported General Exam - General Exam Comments Initial Comments: GENERAL: Patient is well-developed and well-nourished. Patient is nontoxic and well- hydrated and is in no acute distress. ENT: Neck is soft and supple. No significant lymphadenopathy is noted. Oropharynx is clear. Moist mucous membranes. Neck has full range of motion without eliciting any pain. EYES: The sclera were anicteric and conjunctiva were pink and moist. Extraocular movements were intact and pupils were equal round and reactive to light. Eyelids were unremarkable. PULMONARY: Unlabored respirations. Good breath sounds bilaterally. No audible rales rhonchi or wheezing was noted. CARDIOVASCULAR: There is a regular rate and rhythm without any murmurs gallops or rubs. ABDOMEN: Soft and nontender with normal bowel sounds. SKIN: Skin is clear with no lesions or rashes and otherwise unremarkable. NEUROLOGIC: Patient is alert and oriented x3. Cranial nerves II through XII are grossly intact. Motor and sensory are also intact. Normal speech, volume and content. Symmetrical smile. MUSCULOSKELETAL: Normal extremities with adequate strength and full range of motion. LYMPHATICS: No significant lymphadenopathy is noted PSYCHIATRIC: Normal psychiatric evaluation. Limitations: no limitations Course Vital Signs 02/11/24 16:36 Temperature 98.5 F Pulse Rate 86 Respiratory 16 Rate Blood Pressure 150/89 O2 Sat by Pulse 93 L Oximetry Medical Decision Making - Medical Decision Making EKG is interpreted by myself but EKG shows sinus rhythm at 69 bpm RI interval is 97 QRS is 89 QT interval 372 QTc is 391. I compared this EKG with the previous EKG I see no acute abnormality. Was pt. sent in by a medical professional or institution (, [facility], ETL TESTER, urgent care, hospital, or alf...) When possible be specific @ -No Did you speak to anyone other than the patient for history (EMS, parent, family, police, friend...)? What history was obtained from this source @ -No Did you review nursing and triage notes (agree or disagree)? Why? @ -I reviewed and agree with nursing and triage notes Were old charts reviewed (outside hosp., previous admission, EMS record, old EKG, old radiological studies, urgent care reports/EKG's, alf records)? Report findings @ -No old charts were reviewed Differential Diagnosis (chest pain, altered mental status, abdominal pain women, abdominal pain men, vaginal bleeding, weakness, fever, dyspnea, syncope, headache, dizziness, GI bleed, back pain, seizure, CVA, palpatations, mental health, musculoskeletal)? @ -Differential Palpitations Ventricular arrhythmias, atrial arrhythmias, myocardial infarction, anemia, thyrotoxicosis, electrolyte imbalance, hypokalemia, pulmonary embolism, pulmonary disease, drugs, alcohol, anxiety, stress.... This is not meant to be an all-inclusive list. EKG interpreted by me (3pts min.). @ -As above X-rays interpreted by me (1pt min.). @ -None done CT interpreted by me (1pt min.). @ -None done U/S interpreted by me (1pt. min.). @ -None done What testing was considered but not performed or refused? (CT, X-rays, U/S, labs)? Why? @ -None What meds were considered but not given or refused? Why? @ -None Did you discuss the management of the patient with other professionals (professionals i.e. , PA, ETL TESTER, lab, RT, psych nurse, director social, tank truck operator, teacher, giving officer, skilled nursing case manager)? Give summary @ -No Was smoking cessation discussed for >3mins.? @ -No Was critical care preformed (if so, how long)? @ -No Were there social determinants of health that impacted care today? How? (Homelessness, low income, unemployed, alcoholism, drug addiction, transportation, low edu. Level, literacy, decrease access to med. care, [facility], rehab)? @ -No Was there de-escalation of care discussed even if they declined (Discuss DNR or withdrawal of care, Hospice)? DNR status @ -No What co-morbidities impacted this encounter? (DM, HTN, Smoking, COPD, CAD, Cancer, CVA, ARF, Chemo, Hep., AIDS, mental health diagnosis, sleep apnea, morbid obesity)? @ -None Was patient admitted / discharged? Hospital course, mention meds given and route, prescriptions, significant lab abnormalities, going to OR and other pertinent info. @ -Patient was asymptomatic throughout her ED course so at this point in time I recommended the patient follow-up with a primary medical care doctor and get an event monitor placed so she can determine what these extra beats or palpitations are. Patient was in agreement. Undiagnosed new problem with uncertain prognosis? @ -No Drug Therapy requiring intensive monitoring for toxicity (Heparin, Nitro, Insulin, Cardizem)? @ -No Were any procedures done? @ -No Diagnosis/symptom? @ -Palpitations Acute, or Chronic, or Acute on Chronic? @ -Acute Uncomplicated (without systemic symptoms) or Complicated (systemic symptoms)? @ -Uncomplicated Side effects of treatment? @ -No Exacerbation, Progression, or Severe Exacerbation? @ -No Poses a threat to life or bodily function? How? (Chest pain, [place], [place], pneumonia, PE, COPD, DKA, ARF, appy, cholecystitis, CVA, Diverticulitis, Homicidal, Suicidal, threat to staff... and all critical care pts) @ -No Disposition Clinical Impression: Palpitations Disposition: HOME SELF-CARE Instructions (If sedation given, give patient instructions): Heart Palpitations (ED) Is patient prescribed a controlled substance at d/c from ED?: No Referrals: Johnny Garcia MD [Primary Care Provider] - 1-2 days Time of Disposition: 18:01
[2024-02-11 18:45] VITALS: BP 128/84; PULSE 64; RESP 18
== END 2024-02-11 18:21 | disposition home or self-care (01) ==
LOC: EC 16:24
DX: R00.2 Palpitations (principal); F17.290 Nicotine dependence, other tobacco product, uncomplicated; Z91.018 Allergy to other foods
CPT/HCPCS: 99284

== ENCOUNTER 2024-02-24 20:47 | Emergency (ER) | payer OTHER ==
[2024-02-24 21:03] VITALS: RESP 18; TEMP 98.2
--- NOTE | 2024-02-24 21:45 | ED ---
Female Urogenital HPI - General Source: patient, RN notes reviewed Mode of arrival: ambulatory Limitations: no limitations <Elyse Perry - Last Filed: 02/24/24 21:42> - General Source: RN notes reviewed, old records reviewed Mode of arrival: ambulatory Limitations: no limitations - History of Present Illness MD Complaint: vaginal bleeding -: days(s) Location: LLQ Severity: moderate Severity scale (1-10): 4 Consistency: intermittent Improves with: none Worsens with: none Patient : No <Eagle Mary - Last Filed: 03/03/24 16:35> - General Chief complaint: Vaginal Bleeding Stated complaint: Excessive Vag Bleeding,Vomiting Time Seen by Provider: 02/24/24 20:59 - History of Present Illness Initial comments: Quick noteis a 23-year-old female presents emergency department chief complaint of vaginal bleeding. Patient states that she was noted on a combined oral contraceptive 2 months ago and has been experiencing a significant amount of v aginal bleeding during this time. She denies passage of clots, dysuria, hematuria, increase in frequency or urgency. States that she has been experiencing intermittent heart palpitations and feelings of dizziness. (Elyse Perry) This is a 23-year-old female to the ER for evaluation of persistent vaginal bleeding recent changing of contraception denies chance of . (Eagle Mary) - Related Data Home Medications Medication Instructions Recorded Confirmed Isibloom 0.15-0.03mg Tab 1 tab PO DAILY 04/22/23 04/22/23 Previous Rx's Medication Instructions Recorded Ketorolac [Toradol] 10 mg PO Q6HR PRN #15 tab 01/10/24 Ondansetron Odt [Zofran Odt] 4 mg PO Q8HR PRN #15 tab 01/10/24 SUMAtriptan succinate 100 mg PO DIRECTED PRN #20 01/10/24 tablet Allergies Allergy/AdvReac Type Severity Reaction Status Date / Time mejia Allergy Swelling Verified 02/24/24 20:54 Review of Systems ROS Other: All systems not noted in ROS Statement are negative. <Elyse Perry - Last Filed: 02/24/24 21:42> ROS Other: All systems not noted in ROS Statement are negative. <Eagle Mary - Last Filed: 03/03/24 16:35> ROS Statement: Those systems with pertinent positive or pertinent negative responses have been documented in the HPI. Past Medical History Past Medical History: No Reported History Additional Past Medical History / Comment(s): ovarian cyst History of Any Multi-Drug Resistant Organisms: None Reported Past Surgical History: No Surgical Hx Reported Past Psychological History: No Psychological Hx Reported Smoking Status: Current every day smoker, Vaper Past Alcohol Use History: None Reported Past Drug Use History: None Reported <Stieler,Elyse - Last Filed: 02/24/24 21:42> General Exam Limitations: no limitations <Stieler,Elyse - Last Filed: 02/24/24 21:42> General appearance: alert, in no apparent distress Head exam: Present: atraumatic, normocephalic, normal inspection Eye exam: Present: normal appearance, PERRL, EOMI. Absent: scleral icterus, conjunctival injection, periorbital swelling ENT exam: Present: normal exam, mucous membranes moist Neck exam: Present: normal inspection. Absent: tenderness, meningismus, lymphadenopathy Respiratory exam: Present: normal lung sounds bilaterally. Absent: respiratory distress, wheezes, rales, rhonchi, stridor Cardiovascular Exam: Present: regular rate, normal rhythm, normal heart sounds. Absent: systolic murmur, diastolic murmur, rubs, gallop, clicks GI/Abdominal exam: Present: soft, normal bowel sounds. Absent: distended, tenderness, guarding, rebound, rigid Extremities exam: Present: normal inspection, full ROM, normal capillary refill. Absent: tenderness, pedal edema, joint swelling, calf tenderness Back exam: Present: normal inspection Neurological exam: Present: alert, oriented X3, CN II-XII intact Psychiatric exam: Present: normal affect, normal mood Skin exam: Present: warm, dry, intact, normal color. Absent: rash <Eagle Mary - Last Filed: 03/03/24 16:35> - General Exam Comments Initial Comments: Visual Physical Exam Vital signs reviewed General: Well-appearing, nontoxic, no acute distress. Head: Normocephalic, atraumatic Eyes: PERRLA, EOMI ENT: Airway patent Chest: Nonlabored breathing Skin: No visual rash, normal skin tone Neuro: Alert and oriented 3 Musculoskeletal: No gross abnormalities (Stieler,Elyse) Course <Eagle Mary - Last Filed: 03/03/24 16:35> Vital Signs 02/24/24 02/24/24 20:52 23:38 Temperature 98.2 F Pulse Rate 75 63 Respiratory 18 18 Rate Blood Pressure 129/86 146/99 O2 Sat by Pulse 99 100 Oximetry - Reevaluation(s) Reevaluation #1: Medical records reviewed (Eagle Mary) Reevaluation #2: Patient symptoms improved (Eagle Mary) Reevaluation #3: Patient informed of results and questions answered (Eagle Mary) Reevaluation #4: Was pt. sent in by a medical professional or institution (RIMMA Castillo, PHOTOGRAPHY COLORIST, urgent care, hospital, or prison...) When possible be specific @ -no Did you speak to anyone other than the patient for history (EMS, parent, family, police, friend...)? What history was obtained from this source @ -no Did you review nursing and triage notes (agree or disagree)? Why? @ -agree Are old charts reviewed (outside hosp., previous admission, EMS record, old EKG, old radiological studies, urgent care reports/EKG's, prison records)? Report findings @ -yes Differential Diagnosis (chest pain, altered mental status, abdominal pain women, abdominal pain men, vaginal bleeding, weakness, fever, dyspnea, syncope, headache, dizziness, GI bleed, back pain, seizure, CVA, palpatations, mental health, musculoskeletal)? @ -prior EKG interpreted by me (3pts min.). @ -no X-rays interpreted by me (1pt min.). @ -no CT interpreted by me (1pt min.). @ -no U/S interpreted by me (1pt. min.). @ -yes negative for acute disease What testing was considered but not performed or refused? (CT, X-rays, U/S, labs)? Why? @ -none What meds were considered but not given or refused? Why? @ -none Did you discuss the management of the patient with other professionals (professionals i.e. RIMMA Castillo, PHOTOGRAPHY COLORIST, lab, RT, psych nurse, director social, sharebroker, teacher, correctional officer sergeant, leather case finisher)? Give summary @ -no Was smoking cessation discussed for >3mins.? @ -no Was critical care preformed (if so, how long)? @ -no Were there social determinants of health that impacted care today? How? (Homelessness, low income, unemployed, alcoholism, drug addiction, transpor tation, low edu. Level, literacy, decrease access to med. care, long-term, rehab)? @ -none Was there de-escalation of care discussed even if they declined (Discuss DNR or withdrawal of care, Hospice)? DNR status @ -no What co-morbidities impacted this encounter? (DM, HTN, Smoking, COPD, CAD, Cancer, CVA, ARF, Chemo, Hep., AIDS, mental health diagnosis, sleep apnea, morbid obesity)? @ -none Was patient admitted / discharged? Hospital course, mention meds given and route, prescriptions, significant lab abnormalities, going to OR and other pertinent info. @ - 23 female for evaluation of vaginal bleeding. Not , no acute findings here in the ER ultrasound negative patient can be discharged home Discharge Undiagnosed new problem with uncertain prognosis? @ -no Drug Therapy requiring intensive monitoring for toxicity (Heparin, Nitro, Insulin, Cardizem)? @ -no Were any procedures done? @ -no Diagnosis/symptom? @ -Dysfunctional uterine bleeding Acute, or Chronic, or Acute on Chronic? @ -Acute Uncomplicated (without systemic symptoms) or Complicated (systemic symptoms)? @ -Complicated Side effects of treatment? @ -no Exacerbation, Progression, or Severe Exacerbation? @ -exacerbation Poses a threat to life or bodily function? How? (Chest pain, [place], [place], pneumonia, PE, COPD, DKA, ARF, appy, cholecystitis, CVA, Diverticulitis, Homicidal, Suicidal, threat to staff... and all critical care pts) @ -no (Eagle Mary) Medical Decision Making <Elyse Perry - Last Filed: 02/24/24 21:42> - Lab Data Result diagrams: 02/24/24 22:02 02/24/24 22:02 - Radiology Data Radiology results: report reviewed (Ultrasound pelvis negative for acute disease), image reviewed <Eagle Mary - Last Filed: 03/03/24 16:35> - Medical Decision Making I completed the quick note portion of this chart signed Elyse Perry PA-C (Elyse Perry) 23 female for evaluation of vaginal bleeding. Not , no acute findings here in the ER ultrasound negative patient can be discharged home (Eagle Mary) - Lab Data Lab Results 02/24/24 02/24/24 Range/Units 22:02 22:02 WBC 11.8 H (3.8-10.6) k/uL RBC 5.57 H (3.80-5.40) m/uL Hgb 15.5 (11.4-16.0) gm/dL Hct 46.3 H (34.0-46.0) % MCV 83.1 (80.0-100.0) fL MCH 27.8 (25.0-35.0) pg MCHC 33.4 (31.0-37.0) g/dL RDW 15.7 H (11.5-15.5) % Plt Count 289 (150-450) k/uL MPV 8.6 Neutrophils % 66 % Lymphocytes % 24 % Monocytes % 5 % Eosinophils % 2 % Basophils % 1 % Neutrophils # 7.7 (1.3-7.7) k/uL Lymphocytes # 2.8 (1.0-4.8) k/uL Monocytes # 0.6 (0-1.0) k/uL Eosinophils # 0.2 (0-0.7) k/uL Basophils # 0.1 (0-0.2) k/uL Sodium 141 (137-145) mmol/L Potassium 3.7 (3.5-5.1) mmol/L Chloride 111 H (98-107) mmol/L Carbon Dioxide 18 L (22-30) mmol/L Anion Gap 12 mmol/L BUN 10 (7-17) mg/dL Creatinine 0.51 L (0.52-1.04) mg/dL Est GFR (CKD-EPI)AfAm >90 (>60 ml/min/1.73 sqM) Est GFR (CKD-EPI)NonAf >90 (>60 ml/min/1.73 sqM) Glucose 85 (74-99) mg/dL Calcium 8.5 (8.4-10.2) mg/dL Total Bilirubin 0.5 (0.2-1.3) mg/dL AST 25 (14-36) U/L ALT 24 (4-34) U/L Alkaline Phosphatase 89 (38-126) U/L Total Protein 8.2 (6.3-8.2) g/dL Albumin 4.6 (3.5-5.0) g/dL Disposition <Elyse Perry - Last Filed: 02/24/24 21:42> Is patient prescribed a controlled substance at d/c from ED?: No Time of Disposition: 23:00 <Eagle Mary - Last Filed: 03/03/24 16:35> Clinical Impression: Menorrhagia, Dysfunctional uterine bleeding Disposition: HOME SELF-CARE Condition: Good Instructions (If sedation given, give patient instructions): Abnormal (D ysfunctional) Uterine Bleeding (ED), Dysmenorrhea (ED) Referrals: Johnny Garcia MD [Primary Care Provider] - 1-2 days
[2024-02-24 22:13] LABS: Basophils # (A) 0.1 k/uL (0-0.2); Basophils % (A) 1 %; Eosinophils # (A) 0.2 k/uL (0-0.7); Eosinophils % (A) 2 %; HCT 46.3 % (34.0-46.0); HGB 15.5 gm/dL (11.4-16.0); Lymphocytes # (A) 2.8 k/uL (1.0-4.8); Lymphocytes % (A) 24 %; MCH 27.8 pg (25.0-35.0); MCHC 33.4 g/dL (31.0-37.0); MCV 83.1 fL (80.0-100.0); Mean Platelet Volume 8.6; Monocytes # (A) 0.6 k/uL (0-1.0); Monocytes % (A) 5 %; Neutrophils # (A) 7.7 k/uL (1.3-7.7); Neutrophils % (A) 66 %; Platelet Count 289 k/uL (150-450); RBC 5.57 m/uL (3.80-5.40); RDW 15.7 % (11.5-15.5); WBC 11.8 k/uL (3.8-10.6)
--- NOTE | 2024-02-24 22:32 | US ---
EXAMINATION TYPE: US transvaginal DATE OF EXAM: 02/24/2024 COMPARISON: CT abdomen and pelvis May 09, 2022 CLINICAL INDICATION: Female, 23 years old with history of vaginal bleeding; Pt states started c ontrol 2 months ago and has had heavy bleeding since. . TECHNIQUE: Transvaginal (TV). Date of LMP: Beginning of Nov. EXAM MEASUREMENTS: Uterus: 5.8 x 4.4 x 3.6 cm Endometrial Stripe: 0.84 cm Right Ovary: Not seen Left Ovary: 2.3 x 1.1 x 1.6 cm 1. Uterus: Retroverted fluid seen near cervix 2. Endometrium: wnl 3. Right Ovary: Not seen due to distended bladder 4. Left Ovary: wnl Spectral, color and waveform doppler imaging shows good arterial and venous flow within the ovaries ; 5. Bilateral Adnexa: wnl 6. Posterior cul-de-sac: wnl Retroverted uterus redemonstrated. Endometrial stripe measures under 8 mm. No free fluid. Left ovary is seen. Right ovary not distinctly identified. No suspicious adnexal masses. IMPRESSION: No suspicious findings are seen to account for patient's symptoms of heavy bleeding.
[2024-02-24 23:27] LABS: Carbon Dioxide 18 mmol/L (22-30); Chloride 111 mmol/L (98-107); Glucose 85 mg/dL (74-99); Potassium 3.7 mmol/L (3.5-5.1); Sodium 141 mmol/L (137-145)
[2024-02-24 23:28] LABS: ALT 24 U/L (4-34); AST 25 U/L (14-36); African American GFR (CKD) >90 (>60 ml/min/1.73 sqM); Albumin 4.6 g/dL (3.5-5.0); Alkaline Phosphatase 89 U/L (38-126); Anion Gap 12 mmol/L; Blood Urea Nitrogen 10 mg/dL (7-17); Calcium 8.5 mg/dL (8.4-10.2); Non-African American GFR(CKD) >90 (>60 ml/min/1.73 sqM); Total Bilirubin 0.5 mg/dL (0.2-1.3); Total Protein 8.2 g/dL (6.3-8.2)
[2024-02-25 00:20] VITALS: BP 146/99; PULSE 63
== END 2024-02-24 23:41 | disposition home or self-care (01) ==
LOC: EC 20:47
DX: N92.0 Excessive and frequent menstruation with regular cycle (principal); F17.290 Nicotine dependence, other tobacco product, uncomplicated; Z91.018 Allergy to other foods
CPT/HCPCS: 36415; 76830; 80053; 85025; 93976; 99284

== ENCOUNTER 2024-04-10 12:36 | Emergency (ER) | payer OTHER ==
[2024-04-10 13:17] VITALS: RESP 18; TEMP 97.9
--- NOTE | 2024-04-10 14:04 | ED ---
Allergic Reaction HPI - General Chief complaint: Allergic Reaction Stated complaint: Throat pain,BARON Time Seen by Provider: 04/10/24 13:30 Source: patient, RN notes reviewed Mode of arrival: ambulatory Limitations: no limitations - History of Present Illness Initial Comments: 23-year-old female presenting with allergic reaction since yesterday. States yesterday suddenly she began to break out in hives on her back and arms that were extremely itchy. She also felt some itching in her throat and felt as though her throat was closing. She admits that she had some associated shortness of breath yesterday however denies any current shortness of breath. She has never had this before. She has attempted to put topical hydrocortisone on the hives with little relief. Denies current chest pain, fever, chills, vomiting, abdominal pain. Denies new foods, soaps, lotions, detergents. Denies recent hiking. - Related Data Home Medications Medication Instructions Recorded Confirmed Isibloom 0.15-0.03mg Tab 1 tab PO DAILY 04/22/23 04/22/23 Previous Rx's Medication Instructions Recorded Ketorolac [Toradol] 10 mg PO Q6HR PRN #15 tab 01/10/24 Ondansetron Odt [Zofran Odt] 4 mg PO Q8HR PRN #15 tab 01/10/24 SUMAtriptan succinate 100 mg PO DIRECTED PRN #20 01/10/24 tablet Famotidine [Pepcid] 40 mg PO DAILY 5 Days #5 tablet 04/10/24 diphenhydrAMINE [Benadryl] 50 mg PO QID PRN 7 Days #20 capsule 04/10/24 predniSONE [Deltasone] 40 mg PO DAILY 5 Days #10 tab 04/10/24 Allergies Allergy/AdvReac Type Severity Reaction Status Date / Time mejia Allergy Swelling Verified 04/10/24 13:18 Review of Systems ROS Statement: Those systems with pertinent positive or pertinent negative responses have been documented in the HPI. ROS Other: All systems not noted in ROS Statement are negative. Past Medical History Past Medical History: No Reported History Additional Past Medical History / Comment(s): ovarian cyst History of Any Multi-Drug Resistant Organisms: None Reported Past Surgical History: No Surgical Hx Reported Past Psychological History: No Psychological Hx Reported Smoking Status: Current every day smoker, Vaper Past Alcohol Use History: None Reported Past Drug Use History: Marijuana General Exam Limitations: no limitations General appearance: alert, in no apparent distress Head exam: Present: atraumatic, normocephalic, normal inspection Eye exam: Present: normal appearance, PERRL, EOMI. Absent: scleral icterus, conjunctival injection, periorbital swelling ENT exam: Present: normal exam, normal oropharynx, mucous membranes moist Neck exam: Present: normal inspection. Absent: tenderness, meningismus, lymphadenopathy Respiratory exam: Present: normal lung sounds bilaterally. Absent: respiratory distress, wheezes, rales, rhonchi, stridor Cardiovascular Exam: Present: regular rate, normal rhythm, normal heart sounds. Absent: systolic murmur, diastolic murmur, rubs, gallop, clicks GI/Abdominal exam: Present: soft, normal bowel sounds. Absent: distended, tenderness, guarding, rebound, rigid Extremities exam: Present: normal inspection, full ROM, normal capillary refill. Absent: tenderness, pedal edema, joint swelling, calf tenderness Back exam: Present: normal inspection Neurological exam: Present: alert, oriented X3, CN II-XII intact Psychiatric exam: Present: normal affect, normal mood Skin exam: Present: warm, dry, intact, normal color, rash (Few scattered patches of erythema present on ventral aspect of bilateral forearms. There are 2 erythematous macules present on upper right back. No surrounding erythema or drainage. No tenderness to palpation) Course Vital Signs 04/10/24 04/10/24 04/10/24 13:13 13:24 15:33 Temperature 97.9 F Pulse Rate 77 82 Respiratory 18 18 18 Rate Blood Pressure 133/86 130/87 O2 Sat by Pulse 99 97 Oximetry Medical Decision Making - Medical Decision Making Was pt. sent in by a medical professional or institution (, PA, ROCKET PROPELLANT PLANT SUPERVISOR, urgent care, hospital, or correction...) When possible be specific @ -No Did you speak to anyone other than the patient for history (EMS, parent, family, police, friend...)? What history was obtained from this source @ -No Did you review nursing and triage notes (agree or disagree)? Why? @ -I reviewed and agree with nursing and triage notes Were old charts reviewed (outside hosp., previous admission, EMS record, old EKG, old radiological studies, urgent care reports/EKG's, correction records)? Report findings @ -No old charts were reviewed Differential Diagnosis (chest pain, altered mental status, abdominal pain women, abdominal pain men, vaginal bleeding, weakness, fever, dyspnea, syncope, headache, dizziness, GI bleed, back pain, seizure, CVA, palpatations, mental health, musculoskeletal)? @ -Allergic reaction, anaphylaxis, contact dermatitis, cellulitis, abscess, viral URI EKG interpreted by me (3pts min.). @ -None X-rays interpreted by me (1pt min.). @ -None done CT interpreted by me (1pt min.). @ -None done U/S interpreted by me (1pt. min.). @ -None done What testing was considered but not performed or refused? (CT, X-rays, U/S, labs)? Why? @ -None What meds were considered but not given or refused? Why? @ -None Did you discuss the management of the patient with other professionals (professionals i.e. , PA, ROCKET PROPELLANT PLANT SUPERVISOR, lab, RT, psych nurse, licensed clinical social worker, chief medical director, teacher, police or patrol park officer, casework supervisor)? Give summary @ -No Was smoking cessation discussed for >3mins.? @ -No Was critical care preformed (if so, how long)? @ -No Were there social determinants of health that impacted care today? How? (Homelessness, low income, unemployed, alcoholism, drug addiction, transportation, low edu. Level, literacy, decrease access to med. care, snf, rehab)? @ -No Was there de-escalation of care discussed even if they declined (Discuss DNR or withdrawal of care, Hospice)? DNR status @ -No What co-morbidities impacted this encounter? (DM, HTN, Smoking, COPD, CAD, Cancer, CVA, ARF, Chemo, Hep., AIDS, mental health diagnosis, sleep apnea, morbid obesity)? @ -None Was patient admitted / discharged? Hospital course, mention meds given and route, prescriptions, significant lab abnormalities, going to OR and other pertinent info. @ -Patient was discharged. Patient was seen and evaluated for possible allergic reaction since yesterday. No red flag symptoms. No lip or tongue swelling. No difficulty breathing or swallowing. Vital signs are within normal limits. Physical examination is remarkable for hives present on ventral aspect of forearms. Patient was given IM Solu-Medrol and IM Benadryl. Patient was observed in ED for 2 hours patient reports improvement of symptoms upon reevaluation. Diagnosis of allergic reaction discussed with patient. Encouraged follow-up with PCP for possible allergy testing. Strict return parameters discussed with patient in detail and she shows understanding and agrees with plan. Prescribed prednisone and Benadryl to start tomorrow as well as Pepcid. Case discussed with my attending Dr. Mray. Patient discharged in stable condition. Undiagnosed new problem with uncertain prognosis? @ -No Drug Therapy requiring intensive monitoring for toxicity (Heparin, Nitro, Insulin, Cardizem)? @ -No Were any procedures done? @ -No Diagnosis/symptom? @ -Allergic reaction Acute, or Chronic, or Acute on Chronic? @ -Acute Uncomplicated (without systemic symptoms) or Complicated (systemic symptoms)? @ -Uncomplicated Side effects of treatment? @ -No Exacerbation, Progression, or Severe Exacerbation? @ -No Poses a threat to life or bodily function? How? (Chest pain, [place], [place], pneumonia, PE, COPD, DKA, ARF, appy, cholecystitis, CVA, Diverticulitis, Homicidal, Suicidal, threat to staff... and all critical care pts) @ -Unlikely at this time Disposition Clinical Impression: Allergic reaction Disposition: HOME SELF-CARE Condition: Stable Instructions (If sedation given, give patient instructions): General Allergic Reaction (ED) Additional Instructions: Please start steroids and Benadryl tomorrow. Take Pepcid as prescribed. Please return to the Emergency Department if symptoms worsen or any other concerns. Prescriptions: diphenhydrAMINE [Benadryl] 50 mg PO QID PRN 7 Days #20 capsule PRN Reason: Itching predniSONE [Deltasone] 40 mg PO DAILY 5 Days #10 tab Famotidine [Pepcid] 40 mg PO DAILY 5 Days #5 tablet Is patient prescribed a controlled substance at d/c from ED?: No Referrals: Kaity Howard MD [Primary Care Provider] - 1-2 days Time of Disposition: 15:18
[2024-04-10] MEDS: methylPREDNISolone SOD SUCCI 125 MG/2 ML VIAL IM ONE (14:05)
[2024-04-10] MEDS: diphenhydrAMINE 50 MG/ML 1 ML VIAL IM STA (14:05)
[2024-04-10 15:34] VITALS: BP 130/87; PULSE 82
== END 2024-04-10 15:34 | disposition home or self-care (01) ==
LOC: EC 12:36
DX: T78.40XA Allergy, unspecified, initial encounter (principal); R07.0 Pain in throat; F17.290 Nicotine dependence, other tobacco product, uncomplicated; Z91.018 Allergy to other foods
CPT/HCPCS: 99283; 96372 ×2; J1200; J2919

== ENCOUNTER 2024-04-25 13:27 | Emergency (ER) | payer OTHER ==
[2024-04-25 13:43] VITALS: BP 145/88; PULSE 98; RESP 18; TEMP 98.2
--- NOTE | 2024-04-25 14:25 | ED ---
Female Urogenital HPI - General Chief complaint: Vaginal Bleeding Stated complaint: 3 mos , bleeding Time Seen by Provider: 04/25/24 13:40 Source: patient, RN notes reviewed Mode of arrival: ambulatory Limitations: no limitations - History of Present Illness Initial comments: This is a 23-year-old female presents the emergency department chief complaint of vaginal bleeding. Patient states that she saw her OB on Saturday where she had 2 urine dips in office and was sent for lab draws which revealed a negative hCG. Patient states that this morning she began experiencing abdominal cramping, vaginal bleeding and passage of clots. Patient is concerned that she may be having a miscarriage. States that her last menstrual cycle was at the beginning of March. Denies shortness of breath, dysuria, hematuria, increase in urinary frequency or urgency, right upper quadrant abdominal pain. - Related Data Home Medications Medication Instructions Recorded Confirmed Isibloom 0.15-0.03mg Tab 1 tab PO DAILY 04/22/23 04/22/23 Previous Rx's Medication Instructions Recorded Ketorolac [Toradol] 10 mg PO Q6HR PRN #15 tab 01/10/24 Ondansetron Odt [Zofran Odt] 4 mg PO Q8HR PRN #15 tab 01/10/24 SUMAtriptan succinate 100 mg PO DIRECTED PRN #20 01/10/24 tablet Famotidine [Pepcid] 40 mg PO DAILY 5 Days #5 tablet 04/10/24 diphenhydrAMINE [Benadryl] 50 mg PO QID PRN 7 Days #20 capsule 04/10/24 predniSONE [Deltasone] 40 mg PO DAILY 5 Days #10 tab 04/10/24 Allergies Allergy/AdvReac Type Severity Reaction Status Date / Time mejia Allergy Swelling Verified 04/25/24 13:43 Review of Systems ROS Statement: Those systems with pertinent positive or pertinent negative responses have been documented in the HPI. ROS Other: All systems not noted in ROS Statement are negative. Past Medical History Past Medical History: No Reported History Additional Past Medical History / Comment(s): ovarian cyst History of Any Multi-Drug Resistant Organisms: None Reported Past Surgical History: No Surgical Hx Reported Past Psychological History: No Psychological Hx Reported Smoking Status: Current every day smoker, Vaper Past Alcohol Use History: None Reported Past Drug Use History: Marijuana General Exam Limitations: no limitations General appearance: alert, in no apparent distress Head exam: Present: atraumatic, normocephalic, normal inspection Eye exam: Present: normal appearance, PERRL, EOMI. Absent: scleral icterus, conjunctival injection, periorbital swelling ENT exam: Present: normal exam, mucous membranes moist Neck exam: Present: normal inspection. Absent: tenderness, meningismus, lymphadenopathy Respiratory exam: Present: normal lung sounds bilaterally. Absent: respiratory distress, wheezes, rales, rhonchi, stridor Cardiovascular Exam: Present: regular rate, normal rhythm, normal heart sounds. Absent: systolic murmur, diastolic murmur, rubs, gallop, clicks GI/Abdominal exam: Present: soft, tenderness (diffuse), normal bowel sounds. Absent: distended, guarding, rebound, rigid Extremities exam: Present: normal inspection, full ROM, normal capillary refill. Absent: tenderness, pedal edema, joint swelling, calf tenderness Back exam: Present: normal inspection Neurological exam: Present: alert, oriented X3, CN II-XII intact Psychiatric exam: Present: normal affect, normal mood Skin exam: Present: warm, dry, intact, normal color. Absent: rash Course Vital Signs 04/25/24 13:40 Temperature 98.2 F Pulse Rate 98 Respiratory 18 Rate Blood Pressure 145/88 O2 Sat by Pulse 98 Oximetry Medical Decision Making - Medical Decision Making Was pt. sent in by a medical professional or institution (RIMMA Castillo, STRANNER, urgent care, hospital, or residential...) When possible be specific @ -No Did you speak to anyone other than the patient for history (EMS, parent, family, police, friend...)? What history was obtained from this source @ -No Did you review nursing and triage notes (agree or disagree)? Why? @ -I reviewed and agree with nursing and triage notes Were old charts reviewed (outside hosp., previous admission, EMS record, old EKG, old radiological studies, urgent care reports/EKG's, residential records)? Report findings @ -No old charts were reviewed Differential Diagnosis (chest pain, altered mental status, abdominal pain women, abdominal pain men, vaginal bleeding, weakness, fever, dyspnea, syncope, headache, dizziness, GI bleed, back pain, seizure, CVA, palpatations, mental health, musculoskeletal)? @ -Differential Vaginal Bleeding: Spontaneous , threatened , molar , ectopic , bloody show, incompetent cervix, abruptioplacenta, placenta previa, uterine rupture, dysfunctional uterine bleeding, hemorrhage, uterine fibroids, this is not meant to be an all-inclusive list. EKG interpreted by me (3pts min.). @ -None X-rays interpreted by me (1pt min.). @ -None done CT interpreted by me (1pt min.). @ -None done U/S interpreted by me (1pt. min.). @ -transabdominal ultrasound reveals no evidence for intrauterine gestational sac. What testing was considered but not performed or refused? (CT, X-rays, U/S, labs)? Why? @ -None What meds were considered but not given or refused? Why? @ -None Did you discuss the management of the patient with other professionals ( professionals i.e. , PA, STRANNER, lab, RT, psych nurse, social service worker, senior tech manufacturing engineering, teacher, parking enforcement officer, sample case porter)? Give summary @ -No Was smoking cessation discussed for >3mins.? @ -No Was critical care preformed (if so, how long)? @ -No Were there social determinants of health that impacted care today? How? (Homelessness, low income, unemployed, alcoholism, drug addiction, transportation, low edu. Level, literacy, decrease access to med. care, group home, rehab)? @ -No Was there de-escalation of care discussed even if they declined (Discuss DNR or withdrawal of care, Hospice)? DNR status @ -No What co-morbidities impacted this encounter? (DM, HTN, Smoking, COPD, CAD, Cancer, CVA, ARF, Chemo, Hep., AIDS, mental health diagnosis, sleep apnea, morbid obesity)? @ -None Was patient admitted / discharged? Hospital course, mention meds given and route, prescriptions, significant lab abnormalities, going to OR and other pertinent info. @ -Discharge. 23-year-old female with vaginal bleeding. On examination patient noted to have diffuse abdominal tenderness most notable of the suprapubic region. Abdomen is soft with no signs of rebound tenderness or rigidity. Vital stable upon arrival. CBC, CMP unremarkabl, quantitative hCG level less than 2.4. Urinalysis no signs of infection, remarkable for blood which consistent with vaginal bleeding. Some evidence for intrauterine gestational sac. Recommend the patient follows up with her OB next week for further evaluation. All questions answered at bedside and strict return parameters discussed with the patient she is verbalized understanding. Case discussed with Dr. Read. Undiagnosed new problem with uncertain prognosis? @ -No Drug Therapy requiring intensive monitoring for toxicity (Heparin, Nitro, Insulin, Cardizem)? @ -No Were any procedures done? @ -No Diagnosis/symptom? @ -vaginal bleeding, abdominal cramping Acute, or Chronic, or Acute on Chronic? @ -Acute Uncomplicated (without systemic symptoms) or Complicated (systemic symptoms)? @ -uncomplicated Side effects of treatment? @ -No Exacerbation, Progression, or Severe Exacerbation? @ -No Poses a threat to life or bodily function? How? (Chest pain, USA, [place], pneumonia, PE, COPD, DKA, ARF, appy, cholecystitis, CVA, Diverticulitis, Homicidal, Suici jaspreet, threat to staff... and all critical care pts) @ -No - Lab Data Result diagrams: 04/25/24 15:07 04/25/24 15:07 Lab Results 04/25/24 04/25/24 04/25/24 Range/Units 14:19 15:07 15:07 WBC 11.0 H (3.8-10.6) k/uL RBC 5.04 (3.80-5.40) m/uL Hgb 14.1 (11.4-16.0) gm/dL Hct 43.2 (34.0-46.0) % MCV 85.6 (80.0-100.0) fL MCH 27.9 (25.0-35.0) pg MCHC 32.6 (31.0-37.0) g/dL RDW 14.7 (11.5-15.5) % Plt Count 275 (150-450) k/uL MPV 8.4 Neutrophils % 74 % Lymphocytes % 17 % Monocytes % 4 % Eosinophils % 2 % Basophils % 1 % Neutrophils # 8.2 H (1.3-7.7) k/uL Lymphocytes # 1.9 (1.0-4.8) k/uL Monocytes # 0.5 (0-1.0) k/uL Eosinophils # 0.2 (0-0.7) k/uL Basophils # 0.1 (0-0.2) k/uL Sodium 139 (137-145) mmol/L Potassium 4.7 (3.5-5.1) mmol/L Chloride 112 H (98-107) mmol/L Carbon Dioxide 21 L (22-30) mmol/L Anion Gap 6 mmol/L BUN 6 L (7-17) mg/dL Creatinine 0.41 L (0.52-1.04) mg/dL Est GFR (CKD-EPI)AfAm >90 (>60 ml/min/1.73 sqM) Est GFR (CKD-EPI)NonAf >90 (>60 ml/min/1.73 sqM) Glucose 107 H (74-99) mg/dL Calcium 8.3 L (8.4-10.2) mg/dL Total Bilirubin 1.0 (0.2-1.3) mg/dL AST 41 H (14-36) U/L ALT 16 (4-34) U/L Alkaline Phosphatase 59 (38-126) U/L Total Protein 7.1 (6.3-8.2) g/dL Albumin 4.1 (3.5-5.0) g/dL HCG, Quant <2.4 mIU/mL Urine Color Yellow Urine Appearance Clear (Clear) Urine pH 6.0 (5.0-8.0) Ur Specific [place] 1.024 (1.001-1.035) Urine Protein Negative (Negative) Urine Glucose (UA) Negative (Negative) Urine Ketones Negative (Negative) Urine Blood Moderate H (Negative) Urine Nitrite Negative (Negative) Urine Bilirubin Negative (Negative) Urine Urobilinogen <2.0 (<2.0) mg/dL Ur Leukocyte Esterase Negative (Negative) Urine RBC 67 H (0-5) /hpf Urine WBC 2 (0-5) /hpf Ur Squamous Epith Cells <1 (0-4) /hpf Hyaline Casts 1 (0-2) /lpf Urine Mucus Many H (None) /hpf Blood Type Blood Type Recheck Bld Type Recheck Status 04/25/24 Range/Units 15:15 WBC (3.8-10.6) k/uL RBC (3.80-5.40) m/uL Hgb (11.4-16.0) gm/dL Hct (34.0-46.0) % MCV (80.0-100.0) fL MCH (25.0-35.0) pg MCHC (31.0-37.0) g/dL RDW (11.5-15.5) % Plt Count (150-450) k/uL MPV Neutrophils % % Lymphocytes % % Monocytes % % Eosinophils % % Basophils % % Neutrophils # (1.3-7.7) k/uL Lymphocytes # (1.0-4.8) k/uL Monocytes # (0-1.0) k/uL Eosinophils # (0-0.7) k/uL Basophils # (0-0.2) k/uL Sodium (137-145) mmol/L Potassium (3.5-5.1) mmol/L Chloride (98-107) mmol/L Carbon Dioxide (22-30) mmol/L Anion Gap mmol/L BUN (7-17) mg/dL Creatinine (0.52-1.04) mg/dL Est GFR (CKD-EPI)AfAm (>60 ml/min/1.73 sqM) Est GFR (CKD-EPI)NonAf (>60 ml/min/1.73 sqM) Glucose (74-99) mg/dL Calcium (8.4-10.2) mg/dL Total Bilirubin (0.2-1.3) mg/dL AST (14-36) U/L ALT (4-34) U/L Alkaline Phosphatase (38-126) U/L Total Protein (6.3-8.2) g/dL Albumin (3.5-5.0) g/dL HCG, Quant mIU/mL Urine Color Urine Appearance (Clear) Urine pH (5.0-8.0) Ur Specific [place] (1.001-1.035) Urine Protein (Negative) Urine Glucose (UA) (Negative) Urine Ketones (Negative) Urine Blood (Negative) Urine Nitrite (Negative) Urine Bilirubin (Negative) Urine Urobilinogen (<2.0) mg/dL Ur Leukocyte Esterase (Negative) Urine RBC (0-5) /hpf Urine WBC (0-5) /hpf Ur Squamous Epith Cells (0-4) /hpf Hyaline Casts (0-2) /lpf Urine Mucus (None) /hpf Blood Type A Positive Blood Type Recheck A Pos Bld Type Recheck Status No Disposition Clinical Impression: Vaginal bleeding Disposition: HOME SELF-CARE Condition: Good Instructions (If sedation given, give patient instructions): Dysmenorrhea (ED) Additional Instructions: Return to the emergency department if symptoms worsen or not improve. Recommend follow-up with your OB next week for further evaluation. Is patient prescribed a controlled substance at d/c from ED?: No Referrals: Kaity Howard MD [Primary Care Provider] - 1-2 days Time of Disposition: 15:56
[2024-04-25 14:44] LABS: Appearance,Urine Clear (Clear); Bilirubin,Urine Negative (Negative); Blood,Urine Moderate (Negative); Color,Urine Yellow; Glucose,Urine (UA) Negative (Negative); Hyaline Casts,Urine 1 /lpf (0-2); Ketones,Urine Negative (Negative); Leukocyte Esterase,Urine Negative (Negative); Mucus,Urine Many /hpf; Nitrite,Urine Negative (Negative); Protein,Urine Negative (Negative); RBC,Urine 67 /hpf (0-5); Specific Gravity,Urine 1.024 (1.001-1.035); Squamous Epithelial Cell,Urine <1 /hpf (0-4); Urobilinogen,Urine <2.0 mg/dL (<2.0); WBC,Urine 2 /hpf (0-5)
[2024-04-25 15:13] LABS: Basophils # (A) 0.1 k/uL (0-0.2); Basophils % (A) 1 %; Eosinophils # (A) 0.2 k/uL (0-0.7); Eosinophils % (A) 2 %; HCT 43.2 % (34.0-46.0); HGB 14.1 gm/dL (11.4-16.0); Lymphocytes # (A) 1.9 k/uL (1.0-4.8); Lymphocytes % (A) 17 %; MCH 27.9 pg (25.0-35.0); MCHC 32.6 g/dL (31.0-37.0); MCV 85.6 fL (80.0-100.0); Mean Platelet Volume 8.4; Monocytes # (A) 0.5 k/uL (0-1.0); Monocytes % (A) 4 %; Neutrophils # (A) 8.2 k/uL (1.3-7.7); Neutrophils % (A) 74 %; Platelet Count 275 k/uL (150-450); RBC 5.04 m/uL (3.80-5.40); RDW 14.7 % (11.5-15.5)
--- NOTE | 2024-04-25 15:14 | US ---
EXAMINATION TYPE: Transabdominal DATE OF EXAM: 04/25/2024 2:51 PM COMPARISON: NONE CLINICAL INDICATION: Female, 23 years old with history of spotting, ab cramping; Patient states docto r told her she was 3 months . No previous ultrasound. Patient states she just started her p eriod/bleeding yesterday. EXAM PERFORMED: Transabdominal (TA) EXAM MEASUREMENTS: GESTATIONAL AGE / DATING Dates by LMP: ( 5 weeks/1 days) EDC: 12/25/2024 Dates by First Scan: No previous this is first scan Dates by Current Scan for: No IUP seen at this t christen MATERNAL ANATOMY Uterus: 6.8 x 4.0 x 3.6 cm Right Ovary: 3.3 x 1.6 x 1.5 cm Left Ovary: 2.9 x 1.6 x1.3 cm Post CDS / Adnexa: no Presence of free fluid: no Presence of corpus luteal cyst: no GESTATION / SURVEY IUP: No IUP seen at this time Date of LMP: 03/20/2024, G1 Beta HcG (if available): Not available at this time No GS, YS or CRL visualized at time of scan. Endometrium thickness = 0.2 cm IMPRESSION: No evidence of intrauterine gestational sac, correlate with B-hCG. If positive, this could represent early , ectopic or spontaneous . Follow up pelvic ultrasound in 5-7 days a nd serial beta hCG studies are recommended.
[2024-04-25 15:23] LABS: ALT 16 U/L (4-34); African American GFR (CKD) >90 (>60 ml/min/1.73 sqM); Albumin 4.1 g/dL (3.5-5.0); Anion Gap 6 mmol/L; Blood Urea Nitrogen 6 mg/dL (7-17); Calcium 8.3 mg/dL (8.4-10.2); Carbon Dioxide 21 mmol/L (22-30); Chloride 112 mmol/L (98-107); Non-African American GFR(CKD) >90 (>60 ml/min/1.73 sqM); Sodium 139 mmol/L (137-145)
[2024-04-25] MEDS: SODIUM CHLORIDE 0.9% 1,000 ML IV STA (15:23)
[2024-04-25] MEDS: ONDANSETRON 4 MG/2 ML VIAL IVP STA (15:23)
[2024-04-25 15:39] LABS: HCG,Quantitative Serum <2.4 mIU/mL
[2024-04-25 15:41] LABS: Potassium 4.7 mmol/L (3.5-5.1)
[2024-04-25 15:42] LABS: AST 41 U/L (14-36); Alkaline Phosphatase 59 U/L (38-126); Glucose 107 mg/dL (74-99); Total Protein 7.1 g/dL (6.3-8.2)
== END 2024-04-25 16:20 | disposition home or self-care (01) ==
LOC: EC 13:27
DX: O20.9 Hemorrhage in early pregnancy, unspecified (principal); O99.331 Smoking (tobacco) complicating pregnancy, first trimester; F17.290 Nicotine dependence, other tobacco product, uncomplicated; Z91.018 Allergy to other foods; Z3A.01 Less than 8 weeks gestation of pregnancy
CPT/HCPCS: 36415; 86900; 86901; 80053; 85025; 81001; 84702; 76801; 99284; 96374; 96361; J2405

== ENCOUNTER 2024-06-09 17:37 | Emergency (ER) | payer OTHER ==
--- NOTE | 2024-06-09 17:54 | ED ---
General Adult HPI - General Source: patient, RN notes reviewed Mode of arrival: ambulatory Limitations: no limitations <Cary Aly - Last Filed: 06/09/24 17:53> <Bret March - Last Filed: 06/09/24 22:29> - General Stated complaint: abd pain/high fever/headache Time Seen by Provider: 06/09/24 17:53 - History of Present Illness Initial comments: Quick note: 24-year-old female presented to the ER with a chief complaint of fever. Patient reports past couple of days she has been endorsing a pressure headache with mild abdominal pain. She states she has been dizzy and lightheadedness. No nausea, cough or congestion. Patient does state a fever of 104.4 at home. (Cary Aly) Dictation was produced using [employer] dictation software. please excuse any grammatical, word or spelling errors. Chief Complaint: 24-year-old female with headache History of Present Illness: Patient 24-year-old female she has no significant comorbidities presents to the ER for headache. Patient states that her symptoms have been ongoing for the last 1 to 2 days. She complains of cough, congestion and headache. Patient states that headache is mild to the bifrontal area. Denies any obvious sick contacts. The ROS documented in this emergency department record has been reviewed and confirmed by me. Those systems with pertinent positive or negative responses have been documented in the HPI. All other systems are other negative and/or noncontributory. (Bret March) - Related Data Home Medications Medication Instructions Recorded Confirmed Isibloom 0.15-0.03mg Tab 1 tab PO DAILY 04/22/23 04/22/23 Previous Rx's Medication Instructions Recorded Ketorolac [Toradol] 10 mg PO Q6HR PRN #15 tab 01/10/24 Ondansetron Odt [Zofran Odt] 4 mg PO Q8HR PRN #15 tab 01/10/24 SUMAtriptan succinate 100 mg PO DIRECTED PRN #20 01/10/24 tablet Famotidine [Pepcid] 40 mg PO DAILY 5 Days #5 tablet 04/10/24 diphenhydrAMINE [Benadryl] 50 mg PO QID PRN 7 Days #20 capsule 04/10/24 predniSONE [Deltasone] 40 mg PO DAILY 5 Days #10 tab 04/10/24 Allergies Allergy/AdvReac Type Severity Reaction Status Date / Time mejia Allergy Swelling Verified 06/09/24 17:59 ketorolac [From Toradol] AdvReac Nausea & Verified 06/09/24 20:53 Vomiting Review of Systems ROS Other: All systems not noted in ROS Statement are negative. <Cary Aly - Last Filed: 06/09/24 17:53> ROS Other: All systems not noted in ROS Statement are negative. <Bret March - Last Filed: 06/09/24 22:29> ROS Statement: Those systems with pertinent positive or pertinent negative responses have been documented in the HPI. Past Medical History Past Medical History: No Reported History Additional Past Medical History / Comment(s): ovarian cyst History of Any Multi-Drug Resistant Organisms: None Reported Past Surgical History: No Surgical Hx Reported Past Psychological History: No Psychological Hx Reported Smoking Status: Current every day smoker, Vaper Past Alcohol Use History: None Reported Past Drug Use History: Marijuana <Cary Aly - Last Filed: 06/09/24 17:53> General Exam <Cary Aly - Last Filed: 06/09/24 17:53> <Bret Marhc - Last Filed: 06/09/24 22:29> - General Exam Comments Initial Comments: Visual Physical Exam Vital signs reviewed General: Well-appearing, nontoxic, no acute distress. Head: Normocephalic, atraumatic Eyes: PERRLA, EOMI ENT: Airway patent Chest: Nonlabored breathing Skin: No visual rash, normal skin tone Neuro: Alert and oriented 3 Musculoskeletal: No gross abnormalities (Cary Aly) PHYSICAL EXAM: General Impression: Alert and oriented x3, not in acute distress HEENT: Normocephalic atraumatic, extra-ocular movements intact, pupils equal and reactive to light bilaterally, mucous membranes moist. Cardiovascular: Heart regular rate and rhythm Chest: Able to complete full sentences, no retractions, no tachypnea Abdomen: abdomen soft, non-tender, non-distended, no organomegaly Musculoskeletal: Pulses present and equal in all extremities, no peripheral edema Motor: no focal deficits noted Neurological: CN II-XII grossly intact, no focal motor or sensory deficits noted Skin: Intact with no visualized rashes Psych: Normal affect and mood (Bret March) Course Vital Signs 06/09/24 17:57 Temperature 98.2 F Pulse Rate 94 Respiratory 20 Rate Blood Pressure 127/86 O2 Sat by Pulse 98 Oximetry Medical Decision Making <Cary Aly - Last Filed: 06/09/24 17:53> <Bret March - Last Filed: 06/09/24 22:29> - Medical Decision Making I performed the quick note portion of this chart. Electronically signed by Cary Aly PA-C (Cary Aly) Was pt. sent in by a medical professional or institution ([facility] Castillo, [facility] DRIVER, urgent care, hospital, or intermediate...) When possible be specific @ -No Did you speak to anyone other than the patient for history (EMS, parent, family, police, friend...)? What history was obtained from this source @ -No Did you review nursing and triage notes (agree or disagree)? Why? @ -I reviewed and agree with nursing and triage notes Were old charts reviewed (outside hosp., previous admission, EMS record, old EKG, old radiological studies, urgent care reports/EKG's, intermediate records)? Report findings @ -No old charts were reviewed Differential Diagnosis (chest pain, altered mental status, abdominal pain women, abdominal pain men, vaginal bleeding, musculoskeletal, weakness, fever, dyspnea, syncope, headache, dizziness, GI bleed, back pain, seizure, CVA, palpatations, mental health)? @ -Differential Headache: Migraine, tension, cluster, carbon monoxide, central venous thrombosis, pension karma temporal arteritis, acute closure glaucoma, intercranial hemorrhage, mastoiditis, sinusitis, head injury, this is not meant to be an all-inclusive list. EKG interpreted by me (3pts min.). @ -None done X-rays interpreted by me (1pt min.). @ -None done CT interpreted by me (1pt min.). @ -None done U/S interpreted by me (1pt. min.). @ -None done What testing was considered but not performed or refused? (CT, X-rays, U/S, labs)? Why? @ -None What meds were considered but not given or refused? Why? @ -None Was smoking cessation discussed for >3mins.? @ -No Were there social determinants of health that impacted care today? How? (Homelessness, low income, unemployed, alcoholism, drug addiction, transportation, low edu. Level, literacy, decrease access to med. care, [facility], rehab)? @ -No Was there de-escalation of care discussed even if they declined (Discuss DNR or withdrawal of care, Hospice)? DNR status @ -No What co-morbidities impacted this encounter? (DM, HTN, Smoking, COPD, CAD, Cancer, CVA, ARF, Chemo, Hep., AIDS, mental health diagnosis, sleep apnea, morbid obesity)? @ -None Was patient admitted / discharged? Hospital course, mention meds given and route, prescriptions, significant lab abnormalities, going to OR and other pertinent info. @ -24-year-old female presents to the emergency department with constitutional symptoms and headache. Vital signs stable. Patient well-appearing at the bedside. Viral testing negative. Patient given headache cocktail. Patient likely suffering from viral disease. Patient discharged. Did you discuss the management of the patient with other professionals (professionals i.e. , PA, [facility] A DRIVER, lab, RT, psych nurse, licensed master social worker, matching machine operator, teacher, environmental compliance officer, shelter case manager)? Give summary @ -No Was critical care preformed (if so, how long)? @ -No Undiagnosed new problem with uncertain prognosis? @ -No Drug Therapy requiring intensive monitoring for toxicity (Heparin, Nitro, Insulin, Cardizem)? @ -No Were any procedures done? @ -No Diagnosis/symptom? Acute, or Chronic, or Acute on Chronic? Uncomplicated (without systemic symptoms) or Complicated (systemic symptoms)? @ -Viral syndrome Side effects of treatment? @ -No Exacerbation, Progression, or Severe Exacerbation? @ -No Poses a threat to life or bodily function? How? (Chest pain, [place], [place], pneumonia, PE, COPD, DKA, ARF, appy, cholecystitis, CVA, Diverticulitis, Homicidal, Suicidal, threat to staff... and all critical care pts) @ -No (Bret Marhc) - Lab Data Lab Results 06/09/24 Range/Units 17:59 Influenza Type A (PCR) Not Detected (Not Detectd) Influenza Type B (PCR) Not Detected (Not Detectd) RSV (PCR) Not Detected (Not Detectd) SARS-CoV-2 (PCR) Not Detected (Not Detectd) Disposition <Cary Aly - Last Filed: 06/09/24 17:53> Is patient prescribed a controlled substance at d/c from ED?: No Time of Disposition: 20:13 <Bret March - Last Filed: 06/09/24 22:29> Clinical Impression: Viral syndrome Disposition: HOME SELF-CARE Condition: Fair Instructions (If sedation given, give patient instructions): Acute Headache (ED) Referrals: Kaity Howard MD [Primary Care Provider] - 1-2 days
[2024-06-09 17:58] VITALS: TEMP 98.2
[2024-06-09] MEDS: SODIUM CHLORIDE 0.9% 1,000 ML IV STA (20:54)
[2024-06-09] MEDS: ONDANSETRON 4 MG/2 ML VIAL IVP STA (20:57)
[2024-06-09] MEDS: diphenhydrAMINE 50 MG/ML 1 ML VIAL IVP STA (20:58)
[2024-06-09] MEDS: KETOROLAC 15 MG/ML 1 ML VIAL IVP STA (21:06)
[2024-06-09] MEDS: ACETAMINOPHEN IV (For NPO) 1,000 MG in EMPTY BAG 1 BAG IVPB STA (21:16)
[2024-06-09 23:08] VITALS: BP 136/85; PULSE 75; RESP 16
== END 2024-06-09 23:08 | disposition home or self-care (01) ==
LOC: EC 17:37
DX: B34.9 Viral infection, unspecified (principal); F17.290 Nicotine dependence, other tobacco product, uncomplicated; Z88.6 Allergy status to analgesic agent; Z91.018 Allergy to other foods
CPT/HCPCS: 87636; 99284; 96375 ×2; 96361; 96365; J1200; J2405; J0131

== ENCOUNTER 2024-07-13 15:24 | Emergency (ER) | payer OTHER ==
--- NOTE | 2024-07-13 15:47 | ED ---
Abdominal Pain HPI - General Chief Complaint: Abdominal Pain Stated Complaint: Lower abd pain, test Time Seen by Provider: 07/13/24 15:38 Source: patient, RN notes reviewed Mode of arrival: ambulatory Limitations: no limitations - History of Present Illness Initial Comments: This is a 24-year-old female with history of ovarian cyst, this is a 24-year-old female with a history of ovarian cysts, [id number], who presents emergency department from urgent care for chief complaint of lower abdominal cramping, vaginal discharge/bleeding. Patient is that over the past week she has been experiencing lower abdominal pain and is concerned that she may possibly be . Patient states that she took multiple at home tests over the past week which came back positive. States that test to urgent care came back negative. States that her last menstrual cycle was at the end of April and 2023. Denies urinary complaints, fevers or chills. - Related Data Home Medications Medication Instructions Recorded Confirmed Isibloom 0.15-0.03mg Tab 1 tab PO DAILY 04/22/23 04/22/23 Previous Rx's Medication Instructions Recorded Ketorolac [Toradol] 10 mg PO Q6HR PRN #15 tab 01/10/24 Ondansetron Odt [Zofran Odt] 4 mg PO Q8HR PRN #15 tab 01/10/24 SUMAtriptan succinate 100 mg PO DIRECTED PRN #20 01/10/24 tablet Famotidine [Pepcid] 40 mg PO DAILY 5 Days #5 tablet 04/10/24 diphenhydrAMINE [Benadryl] 50 mg PO QID PRN 7 Days #20 capsule 04/10/24 predniSONE [Deltasone] 40 mg PO DAILY 5 Days #10 tab 04/10/24 Allergies Allergy/AdvReac Type Severity Reaction Status Date / Time mejia Allergy Swelling Verified 07/13/24 15:31 ketorolac [From Toradol] AdvReac Nausea & Verified 07/13/24 15:31 Vomiting Review of Systems ROS Statement: Those systems with pertinent positive or pertinent negative responses have been documented in the HPI. ROS Other: All systems not noted in ROS Statement are negative. Past Medical History Past Medical History: No Reported History Additional Past Medical History / Comment(s): ovarian cyst History of Any Multi-Drug Resistant Organisms: None Reported Past Surgical History: No Surgical Hx Reported Past Psychological History: No Psychological Hx Reported Smoking Status: Current every day smoker, Vaper Past Alcohol Use History: None Reported Past Drug Use History: Marijuana General Exam Limitations: no limitations General appearance: alert, in no apparent distress Eye exam: Present: normal appearance, PERRL, EOMI. Absent: scleral icterus, conjunctival injection, periorbital swelling Neck exam: Present: normal inspection. Absent: tenderness, meningismus, lymphadenopathy Respiratory exam: Present: normal lung sounds bilaterally. Absent: respiratory distress, wheezes, rales, rhonchi, stridor Cardiovascular Exam: Present: regular rate, normal rhythm, normal heart sounds. Absent: systolic murmur, diastolic murmur, rubs, gallop, clicks GI/Abdominal exam: Present: soft, tenderness (surpapubic), normal bowel sounds. Absent: distended, guarding, rebound, rigid Extremities exam: Present: normal inspection, full ROM, normal capillary refill. Absent: tenderness, pedal edema, joint swelling, calf tenderness Back exam: Present: normal inspection Skin exam: Present: warm, dry, intact, normal color. Absent: rash Course Vital Signs 07/13/24 07/13/24 07/13/24 15:28 15:53 18:34 Temperature 98 F 98.4 F Pulse Rate 86 82 78 Respiratory 18 17 18 Rate Blood Pressure 161/100 146/96 154/95 O2 Sat by Pulse 98 98 100 Oximetry Medical Decision Making - Medical Decision Making Was pt. sent in by a medical professional or institution (, PA, MAP COMPILER, urgent care, hospital, or [facility]...) When possible be specific @ -No Did you speak to anyone other than the patient for history (EMS, parent, family, police, friend...)? What history was obtained from this source @ -No Did you review nursing and triage notes (agree or disagree)? Why? @ -I reviewed and agree with nursing and triage notes Were old charts reviewed (outside hosp., previous admission, EMS record, old EKG, old radiological studies, urgent care reports/EKG's, [facility] records)? Report findings @ -No old charts were reviewed Differential Diagnosis (chest pain, altered mental status, abdominal pain women, abdominal pain men, vaginal bleeding, weakness, fever, dyspnea, syncope, headache, dizziness, GI bleed, back pain, seizure, CVA, palpatations, mental health, musculoskeletal)? @ -Differential Abdominal Pain Women: Appendicitis, Cholecystitis, diverticulosis, ischemic bowel, pancreatitis, hepatitis, UTI, gastroenteritis, AAA, incarcerated hernia, bowel obstruction, constipation, inflammatory bowel, hepatitis, peptic ulcer disease, splenic infarction, perforated viscus, vulvitis, ovarian torsion, PID, kidney stone, placenta abruption, this is not meant to be an all-inclusive list EKG interpreted by me (3pts min.). @ -None X-rays interpreted by me (1pt min.). @ -None CT interpreted by me (1pt min.). @ -None done U/S interpreted by me (1pt. min.). @ -None done What testing was considered but not performed or refused? (CT, X-rays, U/S, labs)? Why? @ -None What meds were considered but not given or refused? Why? @ -None Did you discuss the management of the patient with other professionals (professionals i.e. , PA, MAP COMPILER, lab, RT, psych nurse, oncology social work, rn clinical, teacher, air force senior officer, supportive employment case manager)? Give summary @ -No Was smoking cessation discussed for >3mins.? @ -No Was critical care preformed (if so, how long)? @ -No Were there social determinants of health that impacted care today? How? (Homelessness, low income, unemployed, alcoholism, drug addiction, transportation, low edu. Level, literacy, decrease access to med. care, skilled nursing, rehab)? @ -No Was there de-escalation of care discussed even if they declined (Discuss DNR or withdrawal of care, Hospice)? DNR status @ -No What co-morbidities impacted this encounter? (DM, HTN, Smoking, COPD, CAD, Cancer, CVA, ARF, Chemo, Hep., AIDS, mental health diagnosis, sleep apnea, morbid obesity)? @ -None Was patient admitted / discharged? Hospital course, mention meds given and route, prescriptions, significant lab abnormalities, going to OR and other p ertinent info. @ -Discharge. 24-year-old female with suprapubic and pelvic pain. Patient's vitals are stable and she is resting company no signs acute distress on my evaluation. She is noted to have mild suprapubic tenderness to palpation. She denies vaginal itching or odor. lab studies including CBC, CMP, pancreatic enzymes, urinalysis and hCG quantitative level all within normal limits, hCG is not elevated. Discussion with patient at bedside that symptoms are likely secondary to ovarian cyst recommend she continue supportive treatment at home cycling Tylenol and Motrin as needed. Recommend that she continue to follow-up outpatient with her soa integration developer and primary care provider for further evaluation. Discussed with Dr. Read. Undiagnosed new problem with uncertain prognosis? @ -No Drug Therapy requiring intensive monitoring for toxicity (Heparin, Nitro, I nsulin, Cardizem)? @ -No Were any procedures done? @ -No Diagnosis/symptom? @ -suprapubic abdominal pain, ovarian cyst Acute, or Chronic, or Acute on Chronic? @ -acute Uncomplicated (without systemic symptoms) or Complicated (systemic symptoms)? @ -Uncomplicated Side effects of treatment? @ -No Exacerbation, Progression, or Severe Exacerbation? @ -No Poses a threat to life or bodily function? How? (Chest pain, [place], [place], pneumonia, PE, COPD, DKA, ARF, appy, cholecystitis, CVA, Diverticulitis, Homicidal, Suicidal, threat to staff... and all critical care pts) @ -No - Lab Data Result diagrams: 07/13/24 15:45 07/13/24 15:45 Lab Results 07/13/24 07/13/24 07/13/24 Range/Units 15:45 15:45 15:45 WBC 8.9 (3.8-10.6) k/uL RBC 5.22 (3.80-5.40) m/uL Hgb 15.1 (11.4-16.0) gm/dL Hct 46.5 H (34.0-46.0) % MCV 89.0 (80.0-100.0) fL MCH 28.9 (25.0-35.0) pg MCHC 32.5 (31.0-37.0) g/dL RDW 12.9 (11.5-15.5) % Plt Count 302 (150-450) k/uL MPV 7.4 Neutrophils % 64 % Lymphocytes % 27 % Monocytes % 5 % Eosinophils % 1 % Basophils % 1 % Neutrophils # 5.7 (1.3-7.7) k/uL Lymphocytes # 2.4 (1.0-4.8) k/uL Monocytes # 0.4 (0-1.0) k/uL Eosinophils # 0.1 (0-0.7) k/uL Basophils # 0.1 (0-0.2) k/uL Sodium 139 (137-145) mmol/L Potassium 4.1 (3.5-5.1) mmol/L Chloride 110 H (98-107) mmol/L Carbon Dioxide 24 (22-30) mmol/L Anion Gap 5 mmol/L BUN 8 (7-17) mg/dL Creatinine 0.57 (0.52-1.04) mg/dL Est GFR (CKD-EPI)AfAm >90 (>60 ml/min/1.73 sqM) Est GFR (CKD-EPI)NonAf >90 (>60 ml/min/1.73 sqM) Glucose 86 (74-99) mg/dL Plasma Lactic Acid Aaron 1.2 (0.7-2.0) mmol/L Calcium 9.1 (8.4-10.2) mg/dL Total Bilirubin 0.5 (0.2-1.3) mg/dL AST 30 (14-36) U/L ALT 24 (4-34) U/L Alkaline Phosphatase 103 (38-126) U/L Total Protein 7.2 (6.3-8.2) g/dL Albumin 4.4 (3.5-5.0) g/dL Amylase 44 (30-110) U/L Lipase 73 (23-300) U/L HCG, Quant mIU/mL Urine Color Urine Appearance (Clear) Urine pH (5.0-8.0) Ur Specific Lincoln (1.001-1.035) Urine Protein (Negative) Urine Glucose (UA) (Negative) Urine Ketones (Negative) Urine Blood (Negative) Urine Nitrite (Negative) Urine Bilirubin (Negative) Urine Urobilinogen (<2.0) mg/dL Ur Leukocyte Esterase (Negative) Urine RBC (0-5) /hpf Urine WBC (0-5) /hpf Ur Squamous Epith Cells (0-4) /hpf Urine Bacteria (None) /hpf Urine Mucus (None) /hpf 07/13/24 07/13/24 Range/Units 15:45 17:17 WBC (3.8-10.6) k/uL RBC (3.80-5.40) m/uL Hgb (11.4-16.0) gm/dL Hct (34.0-46.0) % MCV (80.0-100.0) fL MCH (25.0-35.0) pg MCHC (31.0-37.0) g/dL RDW (11.5-15.5) % Plt Count (150-450) k/uL MPV Neutrophils % % Lymphocytes % % Monocytes % % Eosinophils % % Basophils % % Neutrophils # (1.3-7.7) k/uL Lymphocytes # (1.0-4.8) k/uL Monocytes # (0-1.0) k/uL Eosinophils # (0-0.7) k/uL Basophils # (0-0.2) k/uL Sodium (137-145) mmol/L Potassium (3.5-5.1) mmol/L Chloride (98-107) mmol/L Carbon Dioxide (22-30) mmol/L Anion Gap mmol/L BUN (7-17) mg/dL Creatinine (0.52-1.04) mg/dL Est GFR (CKD-EPI)AfAm (>60 ml/min/1.73 sqM) Est GFR (CKD-EPI)NonAf (>60 ml/min/1.73 sqM) Glucose (74-99) mg/dL Plasma Lactic Acid Aaron (0.7-2.0) mmol/L Calcium (8.4-10.2) mg/dL Total Bilirubin (0.2-1.3) mg/dL AST (14-36) U/L ALT (4-34) U/L Alkaline Phosphatase (38-126) U/L Total Protein (6.3-8.2) g/dL Albumin (3.5-5.0) g/dL Amylase (30-110) U/L Lipase (23-300) U/L HCG, Quant <2.4 mIU/mL Urine Color Light Yellow Urine Appearance Cloudy H (Clear) Urine pH 6.0 (5.0-8.0) Ur Specific [place] 1.019 (1.001-1.035) Urine Protein Negative (Negative) Urine Glucose (UA) Negative (Negative) Urine Ketones 1+ H (Negative) Urine Blood Negative (Negative) Urine Nitrite Negative (Negative) Urine Bilirubin Negative (Negative) Urine Urobilinogen <2.0 (<2.0) mg/dL Ur Leukocyte Esterase Small H (Negative) Urine RBC 1 (0-5) /hpf Urine WBC 3 (0-5) /hpf Ur Squamous Epith Cells 4 (0-4) /hpf Urine Bacteria Rare H (None) /hpf Urine Mucus Moderate H (None) /hpf Disposition Clinical Impression: Lower abdominal pain, Ovarian cyst Disposition: HOME SELF-CARE Condition: Stable Instructions (If sedation given, give patient instructions): Ovarian Cyst (ED), Abdominal Pain (ED) Additional Instructions: Please return to the Emergency Department if symptoms worsen or any other concerns. Is patient prescribed a controlled substance at d/c from ED?: No Referrals: Kaity Howard MD [Primary Care Provider] - 1-2 days Time of Disposition: 18:20
[2024-07-13 16:07] LABS: Basophils # (A) 0.1 k/uL (0-0.2); Basophils % (A) 1 %; Eosinophils # (A) 0.1 k/uL (0-0.7); Eosinophils % (A) 1 %; HCT 46.5 % (34.0-46.0); HGB 15.1 gm/dL (11.4-16.0); Lymphocytes # (A) 2.4 k/uL (1.0-4.8); Lymphocytes % (A) 27 %; MCH 28.9 pg (25.0-35.0); MCHC 32.5 g/dL (31.0-37.0); Mean Platelet Volume 7.4; Monocytes # (A) 0.4 k/uL (0-1.0); Monocytes % (A) 5 %; Neutrophils # (A) 5.7 k/uL (1.3-7.7); Neutrophils % (A) 64 %; Platelet Count 302 k/uL (150-450); RBC 5.22 m/uL (3.80-5.40); RDW 12.9 % (11.5-15.5); WBC 8.9 k/uL (3.8-10.6)
[2024-07-13] MEDS: ACETAMINOPHEN TAB 500 MG TAB PO STA (16:07)
[2024-07-13] MEDS: SODIUM CHLORIDE 0.9% 1,000 ML IV STA (16:07)
[2024-07-13 16:27] LABS: ALT 24 U/L (4-34); AST 30 U/L (14-36); African American GFR (CKD) >90 (>60 ml/min/1.73 sqM); Albumin 4.4 g/dL (3.5-5.0); Alkaline Phosphatase 103 U/L (38-126); Amylase 44 U/L (30-110); Anion Gap 5 mmol/L; Blood Urea Nitrogen 8 mg/dL (7-17); Calcium 9.1 mg/dL (8.4-10.2); Carbon Dioxide 24 mmol/L (22-30); Chloride 110 mmol/L (98-107); Glucose 86 mg/dL (74-99); Lipase 73 U/L (23-300); Non-African American GFR(CKD) >90 (>60 ml/min/1.73 sqM); Potassium 4.1 mmol/L (3.5-5.1); Sodium 139 mmol/L (137-145); Total Bilirubin 0.5 mg/dL (0.2-1.3); Total Protein 7.2 g/dL (6.3-8.2)
[2024-07-13 18:00] LABS: Appearance,Urine Cloudy (Clear); Bacteria,Urine Rare /hpf; Bilirubin,Urine Negative (Negative); Blood,Urine Negative (Negative); Color,Urine Light Yellow; Glucose,Urine (UA) Negative (Negative); Ketones,Urine 1+ (Negative); Leukocyte Esterase,Urine Small (Negative); Mucus,Urine Moderate /hpf; Nitrite,Urine Negative (Negative); Protein,Urine Negative (Negative); RBC,Urine 1 /hpf (0-5); Specific Gravity,Urine 1.019 (1.001-1.035); Squamous Epithelial Cell,Urine 4 /hpf (0-4); Urobilinogen,Urine <2.0 mg/dL (<2.0); WBC,Urine 3 /hpf (0-5)
[2024-07-13 18:35] VITALS: BP 154/95; PULSE 78; RESP 18; TEMP 98.4
== END 2024-07-13 18:35 | disposition home or self-care (01) ==
LOC: EC 15:24
CPT/HCPCS: 36415; 80053; 81001; 82150; 83605; 83690; 84702; 85025; 96360; 99284

== ENCOUNTER → 2024-07-20 | Outpatient (CLI) | payer OTHER ==
--- NOTE | 2024-07-20 19:24 | US ---
EXAMINATION TYPE: US transvaginal DATE OF EXAM: 07/20/2024 COMPARISON: US & CT CLINICAL INDICATION: Female, 24 years old with history of R10.9 ABD PAIN; Pt states generalized pelvi c pain TECHNIQUE: Transvaginal (TV). Transvaginal grayscale, and color Doppler sonographic images of the p colton were acquired. FINDINGS: Date of LMP: End of Sept EXAM MEASUREMENTS: Uterus: 6.4 x 3.8 x 4.6 cm Endometrial Stripe: 0.8 cm Right Ovary: 2.3 x 1.4 x 2.2 cm Left Ovary: 3.1 x 2.0 x 2.6 cm 1. Uterus: Retroverted wnl 2. Endometrium: wnl 3. Right Ovary: wnl, follicles 4. Left Ovary: Probable small resolving hemorrhagic follicle= 1.8 x 1.5 x 1.3 cm. 5. Bilateral Adnex a: wnl 6. Posterior cul-de-sac: wnl IMPRESSION: There is a 1.8 cm cyst in the left ovary. Could represent a small hemorrhagic cyst. Recom mend follow-up to resolution with 6-8 week ultrasound. [facility], , 07/20/2024 7:21 PM
== END ==
LOC: RADUSWWP 15:22
PROVIDERS: ATTEND Internal Medicine
DX: N83.202 Unspecified ovarian cyst, left side (principal)
CPT/HCPCS: 76830

== ENCOUNTER 2024-11-05 16:46 | Emergency (ER) | payer OTHER ==
[2024-11-05 17:10] VITALS: RESP 16; TEMP 98.6
--- NOTE | 2024-11-05 17:26 | ED ---
Nausea/Vomiting/Diarrhea HPI - General Source: patient, RN notes reviewed Mode of arrival: ambulatory Limitations: no limitations <Marisa Bhatia - Last Filed: 11/05/24 17:24> <Marleni Schuster - Last Filed: 11/06/24 12:41> - General Chief complaint: Nausea/Vomiting/Diarrhea Stated complaint: abdominal pain Time Seen by Provider: 11/05/24 17:24 - History of Present Illness Initial comments: Quick [id number] female with history of ovarian cyst presenting to the ER for chief complaint of lower abdominal pain x 2 days. Describes a sharp, intermittent pain in the pelvic area. Also endorses nausea/vomiting/diarrhea probably after the abdominal pain. States she currently takes oral contraceptive pills. (Marisa Bhatia) Patient is a 24 y/o female with PMH prior ovarian cysts presenting today for lower abdominal pain. Pt states she has had similar pain in the past and was told it was 2/2 ovarian cysts. States this episode of pain began about 2-3 days ago, is in the bilateral lower quadrants and is sharp in nature. Is intermittent. Does not seem to be associated with any particular movements or positions. Does not feel like any particular activities exacerbate the pain. Has not trialed any medications for the pain. States she has had associated nausea but no emesis. No fevers. Endorses intermittent vaginal spotting, which is not abnormal for her between menstrual cycles. First date of herLMP was 09/25/24, and she states she has regular periods. She did begin taking a new OCP 4 days ago. Is sexually active with a male partner but does think she could be . Denies other vaginal discharge or concerns for STIs. Denies dysuria or hematuria. Endorses daily nonbloody loose stools x3 days as well. Denies chest pain, shortness of breath, LE swelling. (Marleni Schuster) - Related Data Home Medications Medication Instructions Recorded Confirmed Isibloom 0.15-0.03mg Tab 1 tab PO DAILY 04/22/23 04/22/23 Previous Rx's Medication Instructions Recorded Ketorolac [Toradol] 10 mg PO Q6HR PRN #15 tab 01/10/24 Ondansetron Odt [Zofran Odt] 4 mg PO Q8HR PRN #15 tab 01/10/24 SUMAtriptan succinate 100 mg PO DIRECTED PRN #20 01/10/24 tablet Famotidine [Pepcid] 40 mg PO DAILY 5 Days #5 tablet 04/10/24 diphenhydrAMINE [Benadryl] 50 mg PO QID PRN 7 Days #20 capsule 04/10/24 predniSONE [Deltasone] 40 mg PO DAILY 5 Days #10 tab 04/10/24 Cephalexin [Keflex] 500 mg PO Q12HR 7 Days #14 cap 11/05/24 Allergies Allergy/AdvReac Type Severity Reaction Status Date / Time mejia Allergy Swelling Verified 11/05/24 17:09 ketorolac [From Toradol] AdvReac Nausea & Verified 11/05/24 17:09 Vomiting Review of Systems ROS Other: All systems not noted in ROS Statement are negative. <Marisa Bhatia - Last Filed: 11/05/24 17:24> ROS Other: All systems not noted in ROS Statement are negative. <Marleni Schuster - Last Filed: 11/06/24 12:41> ROS Statement: Those systems with pertinent positive or pertinent negative responses have been documented in the HPI. Past Medical History Past Medical History: No Reported History Additional Past Medical History / Comment(s): ovarian cyst History of Any Multi-Drug Resistant Organisms: None Reported Past Surgical History: No Surgical Hx Reported Past Psychological History: No Psychological Hx Reported Smoking Status: Current every day smoker, Vaper Past Alcohol Use History: None Reported Past Drug Use History: Marijuana <Marisa Bhatia - Last Filed: 11/05/24 17:24> General Exam Limitations: no limitations <Marisa Bhatia - Last Filed: 11/05/24 17:24> <Marleni Schuster - Last Filed: 11/06/24 12:41> - General Exam Comments Initial Comments: Visual Physical Exam Vital signs reviewed General: Well-appearing, nontoxic, no acute distress. Head: Normocephalic, atraumatic Eyes: PERRLA, EOMI ENT: Airway patent Chest: Nonlabored breathing Skin: No visual rash, normal skin tone Neuro: Alert and oriented 3 Musculoskeletal: No gross abnormalities (Marisa Bhatia) PE: CONSTITUTIONAL: No apparent distress, well appearing SKIN: Warm, dry, no jaundice, hives or petechiae EYES: Pupils are equally round, extraocular movements intact without nystagmus, clear conjunctiva, non-icteric sclera HENT: Normocephalic, atraumatic, moist mucus membranes, oropharynx clear without exudates NECK: , Full range of motion, normal appearance PULMONARY: Clear to auscultation without wheezes, rhonchi, or rales, normal excursion, no accessory muscle use and no stridor CARDIOVASCULAR: Regular rate, rhythm, normal S1 and S2. No appreciated murmurs, rubs or gallops. Extremities well-perfused, no lower extremity edema GASTROINTESTINAL: Soft, active bowel sounds throughout, mild suprapubic tenderness to palpation, negative McBurney's point, no rebound tenderness, non- distended, no palpable masses, no guarding. No hepatosplenomegaly GENITOURINARY: MUSCULOSKELETAL: Extremities have no gross deformity, no edema, redness, or swelling. NEUROLOGIC:_a/o x 3, GCS 15, normal mentation and speech. Moves all extremities x 4 without motor or sensory deficit PSYCHIATRIC:_normal mood and affect, thought process is clear and linear (Marleni Schuster) Course Vital Signs 11/05/24 11/05/24 11/05/24 17:06 20:50 22:24 Temperature 98.6 F Pulse Rate 63 74 65 Respiratory 16 16 16 Rate Blood Pressure 129/83 114/85 126/76 O2 Sat by Pulse 96 98 99 Oximetry Medical Decision Making <Marisa Bhatia - Last Filed: 11/05/24 17:24> - Lab Data Result diagrams: 11/05/24 20:23 11/05/24 20:23 <Marleni Schuster - Last Filed: 11/06/24 12:41> - Medical Decision Making I completed the quick note portion of this chart signed Marisa Bhatia PA-C (Marisa Bhatia) Was pt. sent in by a medical professional or institution (RIMMA Castillo, MODELING MANAGER, urgent care, hospital, or long term...) When possible be specific @ -No Did you speak to anyone other than the patient for history (EMS, parent, family, police, friend...)? What history was obtained from this source @ -No Did you review nursing and triage notes (agree or disagree)? Why? @ -I reviewed nursing and triage notes Differential Diagnosis (chest pain, altered mental status, abdominal pain women, abdominal pain men, vaginal bleeding, weakness, fever, dyspnea, syncope, headache, dizziness, GI bleed, back pain, seizure, CVA, palpatations, mental health, musculoskeletal)? Differential Abdominal Pain Women: Appendicitis, Cholecystitis, diverticulosis, UTI, ruptured ovarian cysts, middleschmertz, IBS, gastroenteritis, bowel obstruction, constipation, inflammatory bowel, ovarian torsion, PID, kidney stone, ectopic this is not meant to be an all-inclusive list EKG interpreted by me (3pts min.). @ -As above X-rays interpreted by me (1pt min.). @ -None done CT interpreted by me (1pt min.). @ -None done U/S interpreted by me (1pt. min.). @Arterial blood flow present to both ovaries no intrauterine or masses What testing was considered but not performed or refused? (CT, X-rays, U/S, labs)? Why? @ -None What meds were considered but not given or refused? Why? @ -None Did you discuss the management of the patient with other professionals (professionals i.e. , PA, MODELING MANAGER, lab, RT, psych nurse, high school social studies teacher, gasket inspector, teacher, geographic area intelligence officer, caseworker protective services)? Give summary @ -No Was smoking cessation discussed for >3mins.? @ -No Was critical care preformed (if so, how long)? @ -No Were there social determinants of health that impacted care today? How? (Homelessness, low income, unemployed, alcoholism, drug addiction, transportation, low edu. Level, literacy, decrease access to med. care, skilled nursing, rehab)? @ -No Was there de-escalation of care discussed even if they declined (Discuss DNR or withdrawal of care, Hospice)? @ -No What co-morbidities impacted this encounter? (DM, HTN, Smoking, COPD, CAD, Cancer, CVA, ARF, Chemo, Hep., AIDS, mental health diagnosis, sleep apnea, morbid obesity)? @ -None Was patient admitted / discharged? Hospital course, mention meds given and route, prescriptions, significant lab abnormalities, going to OR and other pertinent info. @ -Discharged-this is a pleasant 24-year-old female previously well presenting today for bilateral sharp lower quadrant pain x 2 to 3 days. Vital signs within acceptable limits on arrival. Complete history of physical exam are performed. Significant for mild suprapubic tenderness to deep palpation otherwise negative Mcburney's point, no right lower quadrant tenderness to palpation, abdomen is nondistended, active bowel sounds present, no palpable masses or guarding, no CVA tenderness. Overall benign abdominal exam. Ultrasound of the pelvis, and basic labs were ordered by triage PA. Ultrasound had resulted by the time of my assessment patient, labs pending. Ultrasound showed follicular changes in the right ovary, good arterial and venous flow to the bilateral ovaries without evidence of torsion and a trace amount of free fluid in the posterior cul-de-sac no suspicious ultrasound changes within the pelvis. I did consider CT of the abdomen however patient's abdominal exam is overall reassuring, she is afebrile, nontoxic-appearing. Discussed with patient resulted US, pending labs, obtaining urinalysis and pain control with Tylenol, ibuprofen and Levsin. Of note patient has a listed allergy to Toradol however is able to take ibuprofen and naproxen without issue. Patient agreeable plan of care. Labs reviewed. Grossly within normal limits. Abnormal values not concerning for acute pathology related to presenting complaint with exception of urinalysis. Urinalysis does show possible signs of infection that was potentially contaminated, with patient suprapubic pain will treat for UTI. Will treat with cephalexin, updated patient to findings, she just received ibuprofen, Tylenol and Levsin so has not had change in symptoms however she is comfortable appearing and comfortable with discharge at this time. I discussed with her the importance of following up closely with Dr. Aguilar and Dr. Wyatt her OB-Rn Field Case Manager and GI doctor, respectively. We discussed and symptoms warranting return to the emergency department. All questions were answered and patient was discharged in good condition. In my medical judgment there is currently no evidence of an immediate life- threatening or surgical condition. Discharge is therefore indicated at this time. Discharge treatment instructions, follow up instructions, and appropriate emergency department return precautions were discussed with the patient and/or medical decision maker. Patient and/or medical decision maker expressed understanding of and agreed with the treatment plan, follow up instructions, and emergency department return precaution. All patient's and/or medical decision maker's questions were answered. Undiagnosed new problem with uncertain prognosis? @ -No Drug Therapy requiring intensive monitoring for toxicity (Heparin, Nitro, Insulin, Cardizem)? @ -No Were any procedures done? @ -No Diagnosis/symptom? UTI, lower abdominal pain Acute, or Chronic, or Acute on Chronic? @acute Uncomplicated (without systemic symptoms) or Complicated (systemic symptoms)? @ uncomplicated Side effects of treatment? @ -No Exacerbation, Progression, or Severe Exacerbation? @ -No Poses a threat to life or bodily function? How? (Chest pain, USA, CT, pneumonia, PE, COPD, DKA, ARF, appy, cholecystitis, CVA, Diverticulitis, Homicidal, Suicidal, threat to staff... and all critical care pts) @ -No (Marleni Schuster) - Lab Data Lab Results 11/05/24 11/05/24 11/05/24 Range/Units 20:23 20:23 20:23 WBC 11.7 H (3.8-10.6) k/uL RBC 5.35 (3.80-5.40) m/uL Hgb 15.8 (11.4-16.0) gm/dL Hct 46.1 H (34.0-46.0) % MCV 86.1 (80.0-100.0) fL MCH 29.5 (25.0-35.0) pg MCHC 34.2 (31.0-37.0) g/dL RDW 13.0 (11.5-15.5) % Plt Count 314 (150-450) k/uL MPV 7.6 Neutrophils % 75 % Lymphocytes % 19 % Monocytes % 3 % Eosinophils % 1 % Basophils % 1 % Neutrophils # 8.7 H (1.3-7.7) k/uL Lymphocytes # 2.2 (1.0-4.8) k/uL Monocytes # 0.3 (0-1.0) k/uL Eosinophils # 0.1 (0-0.7) k/uL Basophils # 0.1 (0-0.2) k/uL Sodium 136 L (137-145) mmol/L Potassium 4.3 (3.5-5.1) mmol/L Chloride 107 (98-107) mmol/L Carbon Dioxide 17 L (22-30) mmol/L Anion Gap 12 mmol/L BUN 9 (7-17) mg/dL Creatinine 0.58 (0.52-1.04) mg/dL Est GFR (CKD-EPI)AfAm >90 (>60 ml/min/1.73 sqM) Est GFR (CKD-EPI)NonAf >90 (>60 ml/min/1.73 sqM) Glucose 83 (74-99) mg/dL Plasma Lactic Acid Aaron 1.0 (0.7-2.0) mmol/L Calcium 8.8 (8.4-10.2) mg/dL Total Bilirubin 0.6 (0.2-1.3) mg/dL AST 19 (14-36) U/L ALT 13 (4-34) U/L Alkaline Phosphatase 99 (38-126) U/L Total Protein 7.6 (6.3-8.2) g/dL Albumin 4.4 (3.5-5.0) g/dL Lipase (23-300) U/L HCG, Qual Urine Color Urine Appearance (Clear) Urine pH (5.0-8.0) Ur Specific [place] (1.001-1.035) Urine Protein (Negative) Urine Glucose (UA) (Negative) Urine Ketones (Negative) Urine Blood (Negative) Urine Nitrite (Negative) Urine Bilirubin (Negative) Urine Urobilinogen (<2.0) mg/dL Ur Leukocyte Esterase (Negative) Urine RBC (0-5) /hpf Urine WBC (0-5) /hpf Ur Squamous Epith Cells (0-4) /hpf Urine Bacteria (None) /hpf Urine Mucus (None) /hpf Influenza Type A (PCR) (Not Detectd) Influenza Type B (PCR) (Not Detectd) RSV (PCR) (Not Detectd) SARS-CoV-2 (PCR) (Not Detectd) 11/05/24 11/05/24 11/05/24 Range/Units 20:23 20:23 20:24 WBC (3.8-10.6) k/uL RBC (3.80-5.40) m/uL Hgb (11.4-16.0) gm/dL Hct (34.0-46.0) % MCV (80.0-100.0) fL MCH (25.0-35.0) pg MCHC (31.0-37.0) g/dL RDW (11.5-15.5) % Plt Count (150-450) k/uL MPV Neutrophils % % Lymphocytes % % Monocytes % % Eosinophils % % Basophils % % Neutrophils # (1.3-7.7) k/uL Lymphocytes # (1.0-4.8) k/uL Monocytes # (0-1.0) k/uL Eosinophils # (0-0.7) k/uL Basophils # (0-0.2) k/uL Sodium (137-145) mmol/L Potassium (3.5-5.1) mmol/L Chloride (98-107) mmol/L Carbon Dioxide (22-30) mmol/L Anion Gap mmol/L BUN (7-17) mg/dL Creatinine (0.52-1.04) mg/dL Est GFR (CKD-EPI)AfAm (>60 ml/min/1.73 sqM) Est GFR (CKD-EPI)NonAf (>60 ml/min/1.73 sqM) Glucose (74-99) mg/dL Plasma Lactic Acid Aaron (0.7-2.0) mmol/L Calcium (8.4-10.2) mg/dL Total Bilirubin (0.2-1.3) mg/dL AST (14-36) U/L ALT (4-34) U/L Alkaline Phosphatase (38-126) U/L Total Protein (6.3-8.2) g/dL Albumin (3.5-5.0) g/dL Lipase 73 (23-300) U/L HCG, Qual Not Detected Urine Color Yellow Urine Appearance Clear (Clear) Urine pH 6.0 (5.0-8.0) Ur Specific [place] 1.029 (1.001-1.035) Urine Protein Trace H (Negative) Urine Glucose (UA) Negative (Negative) Urine Ketones 1+ H (Negative) Urine Blood Trace H (Negative) Urine Nitrite Negative (Negative) Urine Bilirubin Negative (Negative) Urine Urobilinogen <2.0 (<2.0) mg/dL Ur Leukocyte Esterase Trace H (Negative) Urine RBC 1 (0-5) /hpf Urine WBC 2 (0-5) /hpf Ur Squamous Epith Cells 2 (0-4) /hpf Urine Bacteria Few H (None) /hpf Urine Mucus Many H (None) /hpf Influenza Type A (PCR) Not Detected (Not Detectd) Influenza Type B (PCR) Not Detected (Not Detectd) RSV (PCR) Not Detected (Not Detectd) SARS-CoV-2 (PCR) Not Detected (Not Detectd) Disposition <Marisa Bhatia - Last Filed: 11/05/24 17:24> Is patient prescribed a controlled substance at d/c from ED?: No <Marleni Schuster - Last Filed: 11/06/24 12:41> Clinical Impression: Urinary tract infection Disposition: HOME SELF-CARE Condition: Good Instructions (If sedation given, give patient instructions): Urinary Tract Infection in Women (ED), Abdominal Pain (ED) Additional Instructions: Every disease is a spectrum and a small chance still exists that a serious condition could develop, for this reason, please monitor yourself closely for new, changing or worsening symptoms, symptoms that persist beyond [48 hours] or beyond completion of antibiotics, sudden change or worsening in pain, pain you cannot control with home medications, [fever], inability to tolerate/keep down fluids or your medications, inability to follow up with outpatient providers as instructed and should you experience these symptoms or should you have any further concerns for your wellbeing please return to the ED or call 911 immediately. Your pain can be treated with ibuprofen and acetaminophen. You can take up to 400-600 mg of ibuprofen (Advil, Motrin) 3 times daily (every 8 hours) but can also use lower doses if this relieves your pain. Some people prefer naproxen (Aleve, Naprosyn) which can be taken in doses of 500 mg up to twice a day. Do not take both of these medicines together, and do not combine either with ketorolac (Toradol), meloxicam (Mobic), or indomethacin (Tivorbex). Some people can develop stomach discomfort with higher doses of either ibuprofen or naproxen, if this develops decrease your dose or stop taking it. If you need to take this dose daily for more than a week, please schedule an appointment for re-evaluation with your PCP. Please take these medications with food. You can take up to 1000 mg of acetaminophen (Tylenol) every 6 hours. Be careful as this is included in some medicines like Nyquil, [place], Percocet, Vicodin, STANBACK, Goody's Powders, and Excedrin. You can also use lidocaine patches for topical pain. You can purchase 4% patches over the counter at most drug stores. These can be helpful for pain from your muscles or bones. PLEASE call your primary care physician as soon as possible to arrange / discuss plan for followup appointment. Appointment in the next 1-3 days is strongly encouraged if possible. PLEASE let us know here before you leave if there is anything further we can do to be of any assistance. Take care and feel Better! Prescriptions: Cephalexin [Keflex] 500 mg PO Q12HR 7 Days #14 cap Referrals: Kaity Howard MD [Primary Care Provider] - 1-2 days Modesto Aguilar MD [STAFF PHYSICIAN] - 1-2 days
--- NOTE | 2024-11-05 20:03 | US ---
EXAMINATION TYPE: US transvaginal DATE OF EXAM: 11/05/2024 COMPARISON: US 07/20/24 CLINICAL INDICATION: Female, 24 years old with history of pelvic pain; Patient states pelvic pain agnes t comes and goes. Spotting TECHNIQUE: Transvaginal (TV). Transabdominal grayscale sonographic images of the pelvis were acquired. Transvaginal sonographic im ages were medically necessary to better assess the following anatomy: Doppler imaging: Color Doppler Images were obtained. Spectral doppler images were obtained. FINDINGS: Date of LMP: 09/25/24 EXAM MEASUREMENTS: Uterus: 6.0 x 3.8 x 4.7 cm Endometrial Stripe: 0.9 cm Right Ovary: 2.0 x 1.5 x 1.5 cm Left Ovary: 2.6 x 1.2 x 1.7 cm 1. Uterus: Retroverted wnl 2. Endometrium: wnl 3. Right Ovary: wnl, follicular changes seen 4. Left Ovary: wnl Spectral, color and waveform doppler imaging shows good arterial and venous flow within the ovaries ; there is no evidence for ovarian torsion. 5. Bilateral Adnexa: wnl 6. Posterior cul-de-sac: trace amount of free fluid IMPRESSION: 1. No suspicious ultrasound changes within the pelvis. [facility], Workstation: [facility], 11/05/2024 8:01 PM
[2024-11-05 20:34] LABS: Basophils # (A) 0.1 k/uL (0-0.2); Basophils % (A) 1 %; Eosinophils # (A) 0.1 k/uL (0-0.7); Eosinophils % (A) 1 %; HCT 46.1 % (34.0-46.0); HGB 15.8 gm/dL (11.4-16.0); Lymphocytes # (A) 2.2 k/uL (1.0-4.8); Lymphocytes % (A) 19 %; MCH 29.5 pg (25.0-35.0); MCHC 34.2 g/dL (31.0-37.0); MCV 86.1 fL (80.0-100.0); Mean Platelet Volume 7.6; Monocytes # (A) 0.3 k/uL (0-1.0); Monocytes % (A) 3 %; Neutrophils # (A) 8.7 k/uL (1.3-7.7); Neutrophils % (A) 75 %; Platelet Count 314 k/uL (150-450); RBC 5.35 m/uL (3.80-5.40); WBC 11.7 k/uL (3.8-10.6)
[2024-11-05 20:45] LABS: ALT 13 U/L (4-34); AST 19 U/L (14-36); African American GFR (CKD) >90 (>60 ml/min/1.73 sqM); Albumin 4.4 g/dL (3.5-5.0); Alkaline Phosphatase 99 U/L (38-126); Anion Gap 12 mmol/L; Blood Urea Nitrogen 9 mg/dL (7-17); Calcium 8.8 mg/dL (8.4-10.2); Carbon Dioxide 17 mmol/L (22-30); Chloride 107 mmol/L (98-107); Glucose 83 mg/dL (74-99); Non-African American GFR(CKD) >90 (>60 ml/min/1.73 sqM); Potassium 4.3 mmol/L (3.5-5.1); Sodium 136 mmol/L (137-145); Total Bilirubin 0.6 mg/dL (0.2-1.3); Total Protein 7.6 g/dL (6.3-8.2)
[2024-11-05 21:00] LABS: Lipase 73 U/L (23-300)
[2024-11-05 21:05] LABS: HCG,Qualitative Serum Not Detected
[2024-11-05 21:12] LABS: Influenza A Not Detected (Not Detectd); Influenza B Not Detected (Not Detectd); RSV Not Detected (Not Detectd)
[2024-11-05 21:34] LABS: Appearance,Urine Clear (Clear); Bacteria,Urine Few /hpf; Bilirubin,Urine Negative (Negative); Blood,Urine Trace (Negative); Color,Urine Yellow; Glucose,Urine (UA) Negative (Negative); Ketones,Urine 1+ (Negative); Leukocyte Esterase,Urine Trace (Negative); Mucus,Urine Many /hpf; Nitrite,Urine Negative (Negative); Protein,Urine Trace (Negative); RBC,Urine 1 /hpf (0-5); Specific Gravity,Urine 1.029 (1.001-1.035); Squamous Epithelial Cell,Urine 2 /hpf (0-4); Urobilinogen,Urine <2.0 mg/dL (<2.0); WBC,Urine 2 /hpf (0-5)
[2024-11-05] MEDS: ACETAMINOPHEN TAB 500 MG TAB PO STA (21:47)
[2024-11-05] MEDS: HYOSCYAMINE SULFATE 0.125 MG TAB PO STA (21:48)
[2024-11-05] MEDS: IBUPROFEN 800 MG TAB PO STA (21:48)
[2024-11-05] MEDS: CEPHALEXIN 500 MG CAP PO STA (21:54)
[2024-11-05 22:25] VITALS: BP 126/76; PULSE 65
== END 2024-11-05 22:25 | disposition home or self-care (01) ==
LOC: EC 16:46
DX: N39.0 Urinary tract infection, site not specified (principal); F17.290 Nicotine dependence, other tobacco product, uncomplicated; Z91.018 Allergy to other foods; Z88.6 Allergy status to analgesic agent; Z11.52 Encounter for screening for COVID-19
CPT/HCPCS: 36415; 76830; 80053; 81001; 83605; 83690; 84703; 85025; 87636; 93975; 99284

== ENCOUNTER → 2025-01-28 | Outpatient (CLI) | payer OTHER ==
--- NOTE | 2025-01-28 16:56 | US ---
EXAMINATION TYPE: US pelvic complete DATE OF EXAM: 01/28/2025 COMPARISON: 11/05/2024 CLINICAL INDICATION: Female, 24 years old with history of N92.1 FREQUENT MENSTRUATION WITH IRREGULAR CYCLE; TECHNIQUE: Transabdominal (TA). Transabdominal grayscale sonographic images of the pelvis were acquired. Transvaginal sonographic im ages were medically necessary to better assess the following anatomy: Doppler imaging: Color Doppler Images were obtained. Spectral doppler images were obtained per dr order FINDINGS: EXAM MEASUREMENTS: Uterus: 8.2x2.9x4.4cm Endometrial Stripe: 0.9cm Right Ovary: 1.7x1.3x1.1cm Left Ovary: 1.9x1.0x0.9cm slightly limited exam due to overlying bowel & pt body habitus 1. Uterus: Anteverted wnl 2. Endometrium: wnl 3. Right Ovary: spectral & color doppler performed as best seen, slightly limited due to overlying b owel 4. Left Ovary: spectral & color doppler performed as best seen, slightly limited due to overlying alva wel 5. Bilateral Adnexa: wnl 6. Posterior cul-de-sac: wnl Urinary bladder is sonolucent. Posterior wall is normal. IMPRESSION: 1. No suspicious acute ultrasound changes O-RADS 2021 [email or web address] [facility], , 01/28/2025 4:53 PM
[2025-01-28 19:35] LABS: HCT 43.4 % (37.2-46.3); HGB 14.5 g/dL (12.0-15.0); MCH 29.7 pg (27.0-32.0); MCHC 33.4 g/dL (32.0-37.0); MCV 88.8 FL (80.0-97.0); Mean Platelet Volume 11.2 FL (9.5-12.2); NRBC Per 100 WBC 0 X 10*3/uL (0.00-0.01); Platelet Count 319 X 10*3/uL (140-440); RBC 4.89 X 10*6/uL (4.10-5.20); RDW 13.2 % (11.5-14.5); WBC 9.47 X 10*3/uL (4.50-10.00)
[2025-01-28 20:20] LABS: BUN/Creat Ratio 12.33 Ratio (12.00-20.00); Blood Urea Nitrogen 7.4 mg/dL (9.0-27.0); Chloride 104 mmol/L (96-109); Glucose 108 mg/dL (70-110); Potassium 4.2 mmol/L (3.5-5.5); Sodium 139 mmol/L (135-145)
[2025-01-28 20:21] LABS: ALT 13 U/L (8-44); AST 15 U/L (13-35); Albumin 4.1 g/dL (3.8-4.9); Albumin/Globulin Ratio 1.37 Ratio (1.60-3.17); Alkaline Phosphatase 81 U/L (41-126); Calcium 8.8 mg/dL (8.7-10.3); Carbon Dioxide 20.7 mmol/L (21.6-31.8); Total Bilirubin 0.2 mg/dL (0.3-1.2); Total Protein 7.1 g/dL (6.2-8.2)
== END | disposition home or self-care (01) ==
LOC: RADUSWWP 13:43
PROVIDERS: ATTEND Internal Medicine
DX: N92.1 Excessive and frequent menstruation with irregular cycle (principal)
CPT/HCPCS: 76856; 80053; 84443; 85027; 93975

== ENCOUNTER 2025-04-08 13:43 | Emergency (ER) | payer OTHER ==
[2025-04-08 13:54] VITALS: RESP 18
--- NOTE | 2025-04-08 14:15 | ED ---
Skin/Abscess/FB HPI - General Chief complaint: Skin/Abscess/Foreign Body Stated complaint: allergic reaction/hives Time Seen by Provider: 04/08/25 13:59 Source: patient, RN notes reviewed Mode of arrival: ambulatory Limitations: no limitations - History of Present Illness Initial comments: This is a 24-year-old female who presents to the emergency department for a rash. Patient reports a rash that she first noticed yesterday. States that this started on her thighs and is now on her abdomen, back, and lower legs. Describes the rash as itchy. She did take Benadryl yesterday and believes that it may have helped to some extent. She was outside but denies coming into contact with any plants, trees, or brush. Denies any new soaps, detergents, helen ds, or medications. MD complaint: rash - Related Data Home Medications Medication Instructions Recorded Confirmed Isibloom 0.15-0.03mg Tab 1 tab PO DAILY 04/22/23 04/22/23 Previous Rx's Medication Instructions Recorded Ketorolac [Toradol] 10 mg PO Q6HR PRN #15 tab 01/10/24 Ondansetron Odt [Zofran Odt] 4 mg PO Q8HR PRN #15 tab 01/10/24 SUMAtriptan succinate 100 mg PO DIRECTED PRN #20 01/10/24 tablet Famotidine [Pepcid] 40 mg PO DAILY 5 Days #5 tablet 04/10/24 diphenhydrAMINE [Benadryl] 50 mg PO QID PRN 7 Days #20 capsule 04/10/24 predniSONE [Deltasone] 40 mg PO DAILY 5 Days #10 tab 04/10/24 Cephalexin [Keflex] 500 mg PO Q12HR 7 Days #14 cap 11/05/24 Famotidine 40 mg PO DAILY 5 Days #5 tablet 04/08/25 Triamcinolone 0.1% Cream [Kenalog 1 applicatio TOPICAL QID #80 gm 04/08/25 0.1% Cream] predniSONE 50 mg PO DAILY 5 Days #5 tab 04/08/25 Allergies Allergy/AdvReac Type Severity Reaction Status Date / Time mejia Allergy Swelling Verified 11/05/24 17:09 ketorolac [From Toradol] AdvReac Nausea & Verified 11/05/24 17:09 Vomiting Review of Systems ROS Statement: Those systems with pertinent positive or pertinent negative responses have been documented in the HPI. ROS Other: All systems not noted in ROS Statement are negative. Past Medical History Past Medical History: No Reported History Additional Past Medical History / Comment(s): ovarian cyst History of Any Multi-Drug Resistant Organisms: None Reported Past Surgical History: No Surgical Hx Reported Past Psychological History: No Psychological Hx Reported Smoking Status: Current every day smoker, Vaper Past Alcohol Use History: None Reported Past Drug Use History: Marijuana General Exam Limitations: no limitations General appearance: alert, in no apparent distress Head exam: Present: atraumatic, normocephalic, normal inspection Respiratory exam: Present: normal lung sounds bilaterally. Absent: respiratory distress, wheezes, rales, rhonchi, stridor Cardiovascular Exam: Present: regular rate, normal rhythm Neurological exam: Present: alert, oriented X3, CN II-XII intact Psychiatric exam: Present: normal affect, normal mood Skin exam: Present: other (Nonspecific rash to the bilateral lower extremities and trunk suggestive of dermatitis) Course Vital Signs 04/08/25 04/08/25 13:51 14:57 Temperature 97.8 F 97.9 F Pulse Rate 64 66 Respiratory 18 18 Rate Blood Pressure 119/84 115/82 O2 Sat by Pulse 97 98 Oximetry Medical Decision Making - Medical Decision Making This is a 24-year-old female who presents to the emergency department for a rash. Was pt. sent in by a medical professional or institution? @ -No Did you speak to anyone other than the patient for history? @ -No Did you review nursing and triage notes? @ -Yes, and I agree, it is accurate with regards to the patient's symptoms. Were old charts reviewed? @ -No Differential Diagnosis? @ -Roseola, measles, Lyme disease, erythema multiforme, cellulitis, toxic shock syndrome, Kem Cade syndrome, Kawasaki disease, francisc[place] mountain spotted fever, contact dermatitis, allergic dermatitis, measles, mumps, rubella, varicella, meningococcal disease, drug reaction, coxsackievirus, This is not meant to be an all-inclusive list. EKG interpreted by me (3pts min.)? @ -Not obtained X-rays interpreted by me (1pt min.)? @ -Not obtained CT interpreted by me (1pt min.)? @ -Not obtained U/S interpreted by me (1pt. min.)? @ -Not obtained What testing was considered but not performed? (CT, X-rays, U/S, labs)? Why? @ -None What meds were considered but not given? Why? @ -None Did you discuss the management of the patient with other professionals? @ -No Did you reconcile home meds? @ -No Was smoking cessation discussed for >3mins.? @ -I discussed smoking cessation for greater than 3 minutes. The risk of smoking were discussed with the patient including but not limited to risks of cancer, stroke, coronary artery disease and COPD. Also discussed with patient were multiple methods of quitting smoking. Lastly we discussed the financial cost of smoking. Was critical care preformed (if so, how long)? @ -No Were there social determinants of health that impacted care today? How? (Homelessness, low income, unemployed, alcoholism, drug addiction, transportation, low edu. Level, literacy, decrease access to med. care, retirement, rehab)? @ -No Was there de-escalation of care discussed even if they declined? (Discuss DNR or withdrawal of care, Hospice)? @ -No What co-morbidities impacted this encounter? (DM, HTN, Smoking, COPD, CAD, Cancer, CVA, Hep., AIDS, mental health diagnosis, sleep apnea, morbid obesity)? @ -Smoking Was patient admitted / discharged? @ -Discharged. Physical examination suggestive of a nonspecific dermatitis. Advised that we will treat her with an allergy cocktail. Solu-Medrol, Benadryl, and famotidine administered in the emergency department. Prescription for prednisone, famotidine, and triamcinolone cream provided with dosing instruction s reviewed. Advised she continue with an [id number] antihistamine such as Benadryl as well. Patient discharged home in stable condition and advised to follow-up with her PCP. Case discussed with ED attending Dr. Griffin. Return precautions reviewed in depth, the patient is instructed to return to the emergency department with any new, worsening, or concerning symptoms. Patient verbalized understanding. Undiagnosed new problem with uncertain prognosis? @ -None Drug Therapy requiring intensive monitoring for toxicity (Heparin, Nitro, Insulin, Cardizem)? @ -None Were any procedures done? @ -None Diagnosis/symptom? @ -Contact dermatitis Acute, or Chronic, or Acute on Chronic? @ -Acute Uncomplicated (without systemic symptoms) or Complicated (systemic symptoms)? @ -Uncomplicated Side effects of treatment? @ -None Exacerbation, Progression, or Severe Exacerbation] @ -Not applicable Poses a threat to life or bodily function? @ -No Disposition Clinical Impression: Contact dermatitis, Nicotine dependence Disposition: HOME SELF-CARE Instructions (If sedation given, give patient instructions): Contact Dermatitis (ED), Acute Rash (ED), Dermatitis (ED) Additional Instructions: Return to the emergency department with any new, worsening, or concerning symptoms. Take the prednisone and famotidine daily for 5 days. Make sure you are also taking an yhfz-iqm-snowoid antihistamine such as Benadryl or something else regularly. You can apply the triamcinolone cream up to 4 times daily to the most bothersome areas. Follow up with your primary care provider in 1-2 days. Prescriptions: Famotidine 40 mg PO DAILY 5 Days #5 tablet Triamcinolone 0.1% Cream [Kenalog 0.1% Cream] 1 applicatio TOPICAL QID #80 gm predniSONE 50 mg PO DAILY 5 Days #5 tab Is patient prescribed a controlled substance at d/c from ED?: No Referrals: Kaity Howard MD [Primary Care Provider] - 1-2 days Time of Disposition: 14:14
[2025-04-08] MEDS: methylPREDNISolone SOD SUCCI 125 MG/2 ML VIAL IM ONE (14:19)
[2025-04-08] MEDS: diphenhydrAMINE 50 MG/ML 1 ML VIAL IM STA (14:20)
[2025-04-08] MEDS: FAMOTIDINE 20 MG TAB PO STA (14:20)
[2025-04-08 15:02] VITALS: BP 115/82; PULSE 66; TEMP 97.9
== END 2025-04-08 15:02 | disposition home or self-care (01) ==
LOC: EC 13:43
DX: L25.9 Unspecified contact dermatitis, unspecified cause (principal); F17.290 Nicotine dependence, other tobacco product, uncomplicated; Z91.018 Allergy to other foods; Z88.8 Allergy status to other drugs, medicaments and biological substances
CPT/HCPCS: 99283; 96372 ×2; J1200; J2919